=== PATIENT | male | born 1975 | race Caucasian/White ===

== ENCOUNTER 2020-02-28 10:25 | Inpatient (IN) ==
[2020-02-28] MEDS ORDERED: Dexamethasone IV 4 MG/ML VIAL 1 ml VIAL IV SLOW PU ONE (10:42)
[2020-02-28] MEDS ORDERED: Albuterol HFA INHALER 8 gm MDI INH ONE (10:44)
[2020-02-28] MEDS ORDERED: Magnesium Sulfate IV 1GM/100ML 1 GM/100 ML BAG IV ONE (10:44)
[2020-02-28] MEDS ORDERED: NS 0.9% 1000 ml BAG 1,000 ML IV ONE (11:30)
[2020-02-28 11:48] LABS: Hematocrit 38 % (42-52); Hemoglobin 13.2 g/dL (14.0-18.0); Mean Corpuscular HGB Conc 34 g/dL (31-36); Mean Corpuscular Hemoglobin 33 pg (27-31); Mean Corpuscular Volume 96 fL (80-94); Mean Platelet Volume 8.8 fL (7.4-10.4); Platelet Count 57 10^3/uL (150-450); Red Blood Count 3.99 10^6 /uL (4.18-5.48); Red Cell Distribution Width 15 % (10-15); White Blood Count 4.4 10^3/uL (3.5-10.8)
[2020-02-28 11:51] LABS: Activated Partial Thrombo Time 36.7 seconds (26.0-38.0); INR 1.6 (0.82-1.09)
[2020-02-28 11:59] LABS: Albumin 3.3 g/dL (3.2-5.2); Albumin/Globulin Ratio 1.1 (1-3); BUN/Creatinine Ratio 11.8 (8-20); C Reactive Protein 23.56 mg/L (<8.01); Calcium 8.4 mg/dL (8.6-10.3); EGFR African American 106.3 (>60); EGFR Non-African American 87.9 (>60); Potassium 3.7 mmol/L (3.5-5.0); Total Bilirubin 2.7 mg/dL (0.2-1.0); Total Protein 6.3 g/dL (6.4-8.9); Troponin I 0.01 ng/mL (<0.03)
[2020-02-28 12:02] LABS: Influenza A Molecular Negative (Negative); Influenza B Molecular Negative (Negative)
[2020-02-28 12:16] LABS: ABS Lymphocytes 1.2 10^3/ul (1.0-4.8); ABS Monocytes 1.3 10^3/ul (0-0.8); ABS Neutrophils 1.9 10^3/ul (1.5-7.7); Eosinophil % 0.5 %; Lymphocyte % 27.2 %
[2020-02-28 12:17] LABS: Ferritin 175.1 ng/mL (24-336)
[2020-02-28] MEDS ORDERED: NS 0.9% 1000 ml BAG 1,000 ML IV SCH (16:15)
[2020-02-28] MEDS ORDERED: Enoxaparin 40 MG/0.4 ML SYR SUBCUT SCH (17:00)
[2020-02-28] MEDS: Mometasone/Formoter 200/5 MDI INH SCH (20:02)
[2020-02-28] MEDS: Potassium Chlor 10 meq TAB PO SCH (20:33)
[2020-02-28] MEDS: Lactulose 30 ml UDC PO SCH (20:33)
[2020-02-29 06:37] LABS: Albumin 3.2 g/dL (3.2-5.2); Calcium 8.5 mg/dL (8.6-10.3); Total Bilirubin 1.5 mg/dL (0.2-1.0)
[2020-02-29 06:43] LABS: BUN/Creatinine Ratio 18.4 (8-20); EGFR African American 134.2 (>60); EGFR Non-African American 110.9 (>60); Globulin 3.1 g/dL (2-4); Total Protein 6.3 g/dL (6.4-8.9)
[2020-02-29] MEDS: Mometasone/Formoter 200/5 MDI INH SCH ×2 (08:43→22:00)
[2020-02-29] MEDS: SPIRIVA Respimat (tiotropium) 2.5 mcg/inh Inhaler INH SCH (08:43)
[2020-02-29 08:48] LABS: ABS Lymphocytes 0.5 10^3/ul (1.0-4.8); ABS Monocytes 0.5 10^3/ul (0-0.8); ABS Neutrophils 3.9 10^3/ul (1.5-7.7); Hematocrit 39 % (42-52); Hemoglobin 13.7 g/dL (14.0-18.0); Lymphocyte % 10.8 %; Mean Corpuscular HGB Conc 35 g/dL (31-36); Mean Corpuscular Hemoglobin 34 pg (27-31); Mean Corpuscular Volume 96 fL (80-94); Mean Platelet Volume 8.9 fL (7.4-10.4); Nucleated Red Blood Cells % 0.2; Platelet Count 54 10^3/uL (150-450); Red Blood Count 4.07 10^6 /uL (4.18-5.48); Red Cell Distribution Width 15 % (10-15)
[2020-02-29 08:54] LABS: Magnesium 1.9 mg/dL (1.9-2.7)
[2020-02-29] MEDS: Cholecalciferol (VIT D3) 1,000 unit TAB PO SCH (09:05)
[2020-02-29] MEDS: LEVOMEFOLATE CALCIUM 7.5 MG PO SCH (09:06)
[2020-02-29] MEDS: Lactulose 30 ml UDC PO SCH ×2 (09:06→20:35)
[2020-02-29] MEDS: Potassium Chlor 10 meq TAB PO SCH ×2 (09:06→20:36)
[2020-02-29 11:26] LABS: HIV 4th Generation Nonreactive (Nonreactive)
[2020-02-29 18:16] LABS: Activated Partial Thrombo Time 23.4 seconds (26.0-38.0); INR 1.55 (0.82-1.09)
[2020-02-29 18:36] LABS: EGFR African American 111.8 (>60); EGFR Non-African American 92.4 (>60)
[2020-02-29] MEDS: Heparin 5000 UNITS/ML 1 mL VIAL SUBCUT SCH (20:37)
[2020-02-29 21:36] LABS: Hematocrit 46 % (42-52); Hemoglobin 16.1 g/dL (14.0-18.0); Mean Corpuscular HGB Conc 35 g/dL (31-36); Mean Corpuscular Hemoglobin 34 pg (27-31); Mean Corpuscular Volume 97 fL (80-94); Red Blood Count 4.74 10^6 /uL (4.18-5.48); Red Cell Distribution Width 15 % (10-15); White Blood Count 14.1 10^3/uL (3.5-10.8)
[2020-02-29] MEDS: CMCS: Ketorolac 10 mg TAB (NF) PO PRN (22:01)
[2020-02-29] MEDS: guaiFENesin 100 mg/5 ml LIQ unit dose cup PO PRN (22:01)
[2020-02-29 22:04] LABS: ABS Basophils 0.1 10^3/ul (0-0.2); ABS Eosinophils 0.2 10^3/ul (0-0.6); ABS Lymphocytes 1.2 10^3/ul (1.0-4.8); ABS Monocytes 1.1 10^3/ul (0-0.8); ABS Neutrophils 11.6 10^3/ul (1.5-7.7); ABS Nucleated RBC 0.1 10^3/ul; Eosinophil % 1.2 %; Lymphocyte % 8.5 %; Mean Platelet Volume 10.9 fL (7.4-10.4); Nucleated Red Blood Cells % 0.6
[2020-03-01] MEDS: Heparin 5000 UNITS/ML 1 mL VIAL SUBCUT SCH ×3 (05:56→21:34)
[2020-03-01 06:56] LABS: Hematocrit 38 % (42-52); Hemoglobin 13.2 g/dL (14.0-18.0); Mean Corpuscular HGB Conc 35 g/dL (31-36); Mean Corpuscular Hemoglobin 33 pg (27-31); Mean Corpuscular Volume 96 fL (80-94); Red Cell Distribution Width 15 % (10-15); White Blood Count 7.6 10^3/uL (3.5-10.8)
[2020-03-01 07:06] LABS: BUN/Creatinine Ratio 19.4 (8-20); Calcium 8.4 mg/dL (8.6-10.3); EGFR African American 106.3 (>60); EGFR Non-African American 87.9 (>60); Magnesium 1.9 mg/dL (1.9-2.7); Potassium 3.8 mmol/L (3.5-5.0)
[2020-03-01] MEDS: SPIRIVA Respimat (tiotropium) 2.5 mcg/inh Inhaler INH SCH (07:32)
[2020-03-01] MEDS: Mometasone/Formoter 200/5 MDI INH SCH ×2 (07:32→19:50)
[2020-03-01 07:37] LABS: ABS Lymphocytes 0.8 10^3/ul (1.0-4.8); ABS Monocytes 0.6 10^3/ul (0-0.8); ABS Neutrophils 6.3 10^3/ul (1.5-7.7); Lymphocyte % 10.1 %; Platelet Count 58 10^3/uL (150-450)
[2020-03-01] MEDS: Cholecalciferol (VIT D3) 1,000 unit TAB PO SCH (08:16)
[2020-03-01] MEDS: Potassium Chlor 10 meq TAB PO SCH ×2 (08:16→21:33)
[2020-03-01] MEDS: Lactulose 30 ml UDC PO SCH ×2 (08:17→21:32)
[2020-03-01] MEDS: LEVOMEFOLATE CALCIUM 7.5 MG PO SCH (09:03)
[2020-03-02] MEDS: guaiFENesin 100 mg/5 ml LIQ unit dose cup PO PRN ×2 (03:43→10:48)
[2020-03-02] MEDS: Heparin 5000 UNITS/ML 1 mL VIAL SUBCUT SCH ×3 (06:21→21:47)
[2020-03-02] MEDS: Mometasone/Formoter 200/5 MDI INH SCH ×2 (08:08→20:29)
[2020-03-02] MEDS: SPIRIVA Respimat (tiotropium) 2.5 mcg/inh Inhaler INH SCH (08:08)
[2020-03-02 08:21] LABS: ABS Lymphocytes 0.8 10^3/ul (1.0-4.8); ABS Neutrophils 4.9 10^3/ul (1.5-7.7); Hematocrit 39 % (42-52); Hemoglobin 13.8 g/dL (14.0-18.0); Lymphocyte % 11.8 %; Mean Corpuscular HGB Conc 36 g/dL (31-36); Mean Corpuscular Hemoglobin 34 pg (27-31); Mean Corpuscular Volume 95 fL (80-94); Mean Platelet Volume 8.6 fL (7.4-10.4); Nucleated Red Blood Cells % 0.1; Platelet Count 61 10^3/uL (150-450); Red Blood Count 4.09 10^6 /uL (4.18-5.48); Red Cell Distribution Width 15 % (10-15); White Blood Count 6.8 10^3/uL (3.5-10.8)
[2020-03-02 08:50] LABS: BUN/Creatinine Ratio 23.6 (8-20); Calcium 8.4 mg/dL (8.6-10.3); EGFR African American 142.8 (>60); EGFR Non-African American 118.1 (>60); Magnesium 2.1 mg/dL (1.9-2.7); Potassium 3.9 mmol/L (3.5-5.0)
[2020-03-02] MEDS: LEVOMEFOLATE CALCIUM 7.5 MG PO SCH (10:02)
[2020-03-02] MEDS: Cholecalciferol (VIT D3) 1,000 unit TAB PO SCH (10:03)
[2020-03-02] MEDS: Lactulose 30 ml UDC PO SCH ×2 (10:04→21:46)
[2020-03-02] MEDS: Potassium Chlor 10 meq TAB PO SCH ×2 (10:05→21:46)
[2020-03-02] MEDS: CMCS: Ketorolac 10 mg TAB (NF) PO PRN ×2 (11:38→23:07)
[2020-03-03] MEDS: Heparin 5000 UNITS/ML 1 mL VIAL SUBCUT SCH ×3 (06:38→22:09)
[2020-03-03 07:32] LABS: ABS Lymphocytes 0.6 10^3/ul (1.0-4.8); ABS Monocytes 0.8 10^3/ul (0-0.8); ABS Neutrophils 4.8 10^3/ul (1.5-7.7); Hematocrit 39 % (42-52); Hemoglobin 13.6 g/dL (14.0-18.0); Lymphocyte % 9.8 %; Mean Corpuscular HGB Conc 35 g/dL (31-36); Mean Corpuscular Hemoglobin 34 pg (27-31); Mean Corpuscular Volume 97 fL (80-94); Mean Platelet Volume 8.8 fL (7.4-10.4); Platelet Count 51 10^3/uL (150-450); Red Blood Count 4.03 10^6 /uL (4.18-5.48); Red Cell Distribution Width 15 % (10-15); White Blood Count 6.2 10^3/uL (3.5-10.8)
[2020-03-03] MEDS: Cholecalciferol (VIT D3) 1,000 unit TAB PO SCH (08:59)
[2020-03-03] MEDS: Potassium Chlor 10 meq TAB PO SCH ×2 (08:59→21:39)
[2020-03-03] MEDS: Lactulose 30 ml UDC PO SCH ×2 (09:00→21:41)
[2020-03-03] MEDS: LEVOMEFOLATE CALCIUM 7.5 MG PO SCH (09:02)
[2020-03-03] MEDS: SPIRIVA Respimat (tiotropium) 2.5 mcg/inh Inhaler INH SCH (09:55)
[2020-03-03] MEDS: Mometasone/Formoter 200/5 MDI INH SCH ×2 (09:55→20:44)
[2020-03-03] MEDS: Albuterol HFA INHALER 8 gm MDI INH PRN (09:55)
[2020-03-04] MEDS: Heparin 5000 UNITS/ML 1 mL VIAL SUBCUT SCH (06:03)
[2020-03-04 06:49] LABS: ABS Lymphocytes 0.6 10^3/ul (1.0-4.8); ABS Monocytes 0.7 10^3/ul (0-0.8); ABS Neutrophils 5.3 10^3/ul (1.5-7.7); Hematocrit 38 % (42-52); Hemoglobin 13.3 g/dL (14.0-18.0); Lymphocyte % 9.1 %; Mean Corpuscular HGB Conc 35 g/dL (31-36); Mean Corpuscular Hemoglobin 33 pg (27-31); Mean Corpuscular Volume 95 fL (80-94); Mean Platelet Volume 8.7 fL (7.4-10.4); Platelet Count 51 10^3/uL (150-450); Red Blood Count 3.99 10^6 /uL (4.18-5.48); Red Cell Distribution Width 15 % (10-15); White Blood Count 6.6 10^3/uL (3.5-10.8)
[2020-03-04] MEDS: Potassium Chlor 10 meq TAB PO SCH ×2 (10:32→19:55)
[2020-03-04] MEDS: LEVOMEFOLATE CALCIUM 7.5 MG PO SCH (10:33)
[2020-03-04] MEDS: Cholecalciferol (VIT D3) 1,000 unit TAB PO SCH (10:34)
[2020-03-04] MEDS: Lactulose 30 ml UDC PO SCH ×2 (10:35→19:53)
[2020-03-04] MEDS: Mometasone/Formoter 200/5 MDI INH SCH ×2 (11:11→19:09)
[2020-03-04] MEDS: SPIRIVA Respimat (tiotropium) 2.5 mcg/inh Inhaler INH SCH (11:12)
[2020-03-05 05:52] LABS: ABS Lymphocytes 0.5 10^3/ul (1.0-4.8); ABS Monocytes 0.6 10^3/ul (0-0.8); ABS Neutrophils 4.9 10^3/ul (1.5-7.7); Hematocrit 38 % (42-52); Hemoglobin 13.2 g/dL (14.0-18.0); Lymphocyte % 8.8 %; Mean Corpuscular HGB Conc 35 g/dL (31-36); Mean Corpuscular Hemoglobin 34 pg (27-31); Mean Corpuscular Volume 95 fL (80-94); Mean Platelet Volume 8.8 fL (7.4-10.4); Platelet Count 51 10^3/uL (150-450); Red Blood Count 3.94 10^6 /uL (4.18-5.48); Red Cell Distribution Width 15 % (10-15)
[2020-03-05] MEDS: SPIRIVA Respimat (tiotropium) 2.5 mcg/inh Inhaler INH SCH (08:06)
[2020-03-05] MEDS: Mometasone/Formoter 200/5 MDI INH SCH (08:06)
[2020-03-05] MEDS: Lactulose 30 ml UDC PO SCH ×2 (10:10→19:50)
[2020-03-05] MEDS: Cholecalciferol (VIT D3) 1,000 unit TAB PO SCH (10:11)
[2020-03-05] MEDS: Potassium Chlor 10 meq TAB PO SCH ×2 (10:13→19:51)
[2020-03-05] MEDS: LEVOMEFOLATE CALCIUM 7.5 MG PO SCH (10:27)
[2020-03-06] MEDS: Mometasone/Formoter 200/5 MDI INH SCH ×3 (01:09→21:04)
[2020-03-06] MEDS: SPIRIVA Respimat (tiotropium) 2.5 mcg/inh Inhaler INH SCH (07:27)
[2020-03-06] MEDS: Lactulose 30 ml UDC PO SCH ×2 (09:51→22:10)
[2020-03-06] MEDS: Potassium Chlor 10 meq TAB PO SCH ×2 (09:51→22:11)
[2020-03-06] MEDS: Cholecalciferol (VIT D3) 1,000 unit TAB PO SCH (09:52)
[2020-03-06] MEDS: LEVOMEFOLATE CALCIUM 7.5 MG PO SCH (09:53)
[2020-03-06 16:07] LABS: Urine Appearance Clear; Urine Bilirubin Negative (Negative); Urine Blood Negative (Negative); Urine Color Yellow; Urine Glucose Negative (Negative); Urine Ketones Negative (Negative); Urine Nitrite Negative (Negative); Urine Protein Negative (Negative); Urine Specific Gravity 1.014 (1.010-1.030); Urine Urobilinogen Positive (Negative)
[2020-03-06 16:11] LABS: Urine Bacteria Absent (Absent); Urine Red Blood Cell Trace(0-2/hpf) (Absent); Urine White Blood Cell 1+(6-10/hpf) (Absent)
[2020-03-07] MEDS: Mometasone/Formoter 200/5 MDI INH SCH ×2 (07:14→19:38)
[2020-03-07] MEDS: SPIRIVA Respimat (tiotropium) 2.5 mcg/inh Inhaler INH SCH (07:14)
[2020-03-07] MEDS: Lactulose 30 ml UDC PO SCH ×2 (08:46→20:37)
[2020-03-07] MEDS: Cholecalciferol (VIT D3) 1,000 unit TAB PO SCH (08:47)
[2020-03-07] MEDS: LEVOMEFOLATE CALCIUM 7.5 MG PO SCH (08:48)
[2020-03-07] MEDS: Potassium Chlor 10 meq TAB PO SCH ×2 (08:48→20:38)
[2020-03-07] MEDS: Albuterol HFA INHALER 8 gm MDI INH PRN (19:38)
[2020-03-08] MEDS: SPIRIVA Respimat (tiotropium) 2.5 mcg/inh Inhaler INH SCH (07:41)
[2020-03-08] MEDS: Mometasone/Formoter 200/5 MDI INH SCH (07:41)
[2020-03-08 08:34] LABS: ABS Lymphocytes 0.5 10^3/ul (1.0-4.8); ABS Monocytes 0.8 10^3/ul (0-0.8); ABS Neutrophils 9.4 10^3/ul (1.5-7.7); Hematocrit 39 % (42-52); Hemoglobin 13.9 g/dL (14.0-18.0); Lymphocyte % 4.9 %; Mean Corpuscular HGB Conc 36 g/dL (31-36); Mean Corpuscular Hemoglobin 34 pg (27-31); Mean Corpuscular Volume 95 fL (80-94); Mean Platelet Volume 8.8 fL (7.4-10.4); Platelet Count 56 10^3/uL (150-450); Red Blood Count 4.13 10^6 /uL (4.18-5.48); Red Cell Distribution Width 14 % (10-15); White Blood Count 10.8 10^3/uL (3.5-10.8)
[2020-03-08] MEDS: Cholecalciferol (VIT D3) 1,000 unit TAB PO SCH (10:07)
[2020-03-08] MEDS: Lactulose 30 ml UDC PO SCH ×2 (10:07→20:09)
[2020-03-08] MEDS: Potassium Chlor 10 meq TAB PO SCH ×2 (10:08→20:09)
[2020-03-08] MEDS: LEVOMEFOLATE CALCIUM 7.5 MG PO SCH (10:09)
[2020-03-09] MEDS: Mometasone/Formoter 200/5 MDI INH SCH ×3 (01:21→21:15)
[2020-03-09] MEDS: SPIRIVA Respimat (tiotropium) 2.5 mcg/inh Inhaler INH SCH (08:13)
[2020-03-09 08:41] LABS: Hematocrit 39 % (42-52); Hemoglobin 13.6 g/dL (14.0-18.0); Mean Corpuscular HGB Conc 35 g/dL (31-36); Mean Corpuscular Hemoglobin 33 pg (27-31); Mean Corpuscular Volume 95 fL (80-94); Mean Platelet Volume 8.8 fL (7.4-10.4); Platelet Count 60 10^3/uL (150-450); Red Blood Count 4.08 10^6 /uL (4.18-5.48); Red Cell Distribution Width 15 % (10-15); White Blood Count 10.2 10^3/uL (3.5-10.8)
[2020-03-09 08:43] LABS: Anion Gap 6 mmol/L (2-11); BUN/Creatinine Ratio 22.1 (8-20); Blood Urea Nitrogen 15 mg/dL (6-24); C Reactive Protein 47.64 mg/L (<8.01); CO2 Carbon Dioxide 27 mmol/L (22-32); Calcium 8.3 mg/dL (8.6-10.3); Chloride 98 mmol/L (101-111); EGFR African American 152.6 (>60); EGFR Non-African American 126.1 (>60); Glucose 96 mg/dL (70-100); Potassium 3.8 mmol/L (3.5-5.0); Sodium 131 mmol/L (135-145)
[2020-03-09] MEDS: Lactulose 30 ml UDC PO SCH ×2 (09:30→20:31)
[2020-03-09] MEDS: Cholecalciferol (VIT D3) 1,000 unit TAB PO SCH (09:32)
[2020-03-09] MEDS: Potassium Chlor 10 meq TAB PO SCH ×2 (09:32→20:31)
[2020-03-09] MEDS: LEVOMEFOLATE CALCIUM 7.5 MG PO SCH (09:33)
[2020-03-09] MEDS: cefTRIAXone 1 gm/50 mL NS BAG 1 GM/50 ML BAG IVPB SCH (14:06)
[2020-03-09] MEDS: Azithromycin 500 mg/250 ml NS 500 MG/250 ML BAG IVPB SCH (14:06)
[2020-03-09] MEDS ORDERED: Lorazepam PYXIS KEY PRN (14:49)
[2020-03-09] MEDS: LORazepam 2 mg VIAL 1 ml IV PUSH PRN (15:07)
[2020-03-09] MEDS ORDERED: Furosemide 40 mg/4 ml IV VIAL IV SLOW PU ONE (19:53)
[2020-03-09] MEDS ORDERED: Furosemide 40 mg/4 ml IV VIAL ONE (20:31)
[2020-03-09] MEDS: Albuterol HFA INHALER 8 gm MDI INH PRN (21:15)
[2020-03-10 04:38] LABS: Hematocrit 40 % (42-52); Hemoglobin 14.3 g/dL (14.0-18.0); Mean Corpuscular HGB Conc 35 g/dL (31-36); Mean Corpuscular Hemoglobin 33 pg (27-31); Mean Corpuscular Volume 94 fL (80-94); Mean Platelet Volume 8.2 fL (7.4-10.4); Platelet Count 71 10^3/uL (150-450); Red Cell Distribution Width 15 % (10-15); White Blood Count 10.3 10^3/uL (3.5-10.8)
[2020-03-10 04:51] LABS: Albumin 2.8 g/dL (3.2-5.2); Albumin/Globulin Ratio 0.9 (1-3); Calcium 8.3 mg/dL (8.6-10.3); EGFR African American 142.8 (>60); EGFR Non-African American 118.1 (>60); Globulin 3.2 g/dL (2-4); Magnesium 2.1 mg/dL (1.9-2.7); Phosphorus 3.3 mg/dL (2.5-5.0); Potassium 3.5 mmol/L (3.5-5.0); Total Bilirubin 1.6 mg/dL (0.2-1.0)
[2020-03-10] MEDS: SPIRIVA Respimat (tiotropium) 2.5 mcg/inh Inhaler INH SCH (07:28)
[2020-03-10] MEDS: Mometasone/Formoter 200/5 MDI INH SCH ×2 (07:28→20:49)
[2020-03-10] MEDS: Albuterol HFA INHALER 8 gm MDI INH PRN (07:29)
[2020-03-10] MEDS: Cholecalciferol (VIT D3) 1,000 unit TAB PO SCH (07:47)
[2020-03-10] MEDS: Lactulose 30 ml UDC PO SCH ×2 (07:47→21:27)
[2020-03-10] MEDS: Potassium Chlor 10 meq TAB PO SCH ×2 (07:48→21:27)
[2020-03-10] MEDS: LEVOMEFOLATE CALCIUM 7.5 MG PO SCH (07:51)
[2020-03-10] MEDS: LORazepam 2 mg VIAL 1 ml IV PUSH PRN (12:27)
[2020-03-10] MEDS: cefTRIAXone 1 gm/50 mL NS BAG 1 GM/50 ML BAG IVPB SCH (12:36)
[2020-03-10] MEDS: Azithromycin 500 mg/250 ml NS 500 MG/250 ML BAG IVPB SCH (13:18)
[2020-03-11 05:19] LABS: Hemoglobin 13.3 g/dL (14.0-18.0); Red Blood Count 4.02 10^6 /uL (4.18-5.48); White Blood Count 10.2 10^3/uL (3.5-10.8)
[2020-03-11 05:20] LABS: Hematocrit 38 % (42-52); Mean Corpuscular HGB Conc 35 g/dL (31-36); Mean Corpuscular Hemoglobin 33 pg (27-31); Mean Corpuscular Volume 95 fL (80-94); Mean Platelet Volume 8.7 fL (7.4-10.4); Platelet Count 72 10^3/uL (150-450); Red Cell Distribution Width 15 % (10-15)
[2020-03-11] MEDS: Lactulose 30 ml UDC PO SCH ×2 (07:45→21:29)
[2020-03-11] MEDS: Potassium Chlor 10 meq TAB PO SCH ×2 (07:45→21:29)
[2020-03-11] MEDS: Cholecalciferol (VIT D3) 1,000 unit TAB PO SCH (07:46)
[2020-03-11] MEDS: LEVOMEFOLATE CALCIUM 7.5 MG PO SCH (07:54)
[2020-03-11] MEDS: Albuterol HFA INHALER 8 gm MDI INH PRN ×2 (08:08→18:57)
[2020-03-11] MEDS: Mometasone/Formoter 200/5 MDI INH SCH ×3 (08:08→21:30)
[2020-03-11] MEDS: SPIRIVA Respimat (tiotropium) 2.5 mcg/inh Inhaler INH SCH (08:08)
[2020-03-11 09:29] LABS: BUN/Creatinine Ratio 24.2 (8-20); Calcium 8.4 mg/dL (8.6-10.3); EGFR African American 157.9 (>60); EGFR Non-African American 130.5 (>60); Magnesium 2.1 mg/dL (1.9-2.7); Phosphorus 3.4 mg/dL (2.5-5.0); Potassium 3.5 mmol/L (3.5-5.0)
[2020-03-11] MEDS: cefTRIAXone 1 gm/50 mL NS BAG 1 GM/50 ML BAG IVPB SCH (11:32)
[2020-03-11] MEDS: Azithromycin 500 mg/250 ml NS 500 MG/250 ML BAG IVPB SCH (12:15)
[2020-03-11] MEDS: LORazepam 2 mg VIAL 1 ml IV PUSH PRN (21:29)
[2020-03-12] MEDS: Potassium Chlor 10 meq TAB PO SCH ×2 (08:43→20:23)
[2020-03-12] MEDS: Lactulose 30 ml UDC PO SCH ×2 (08:43→20:23)
[2020-03-12] MEDS: LEVOMEFOLATE CALCIUM 7.5 MG PO SCH (08:43)
[2020-03-12] MEDS: SPIRIVA Respimat (tiotropium) 2.5 mcg/inh Inhaler INH SCH (09:29)
[2020-03-12] MEDS: Mometasone/Formoter 200/5 MDI INH SCH ×2 (09:30→20:07)
[2020-03-12] MEDS ORDERED: Furosemide 40 mg/4 ml IV VIAL IV SLOW PU ONE (10:09)
[2020-03-12] MEDS: LORazepam 2 mg VIAL 1 ml IV PUSH PRN ×2 (12:03→20:26)
[2020-03-12] MEDS: Azithromycin 500 mg/250 ml NS 500 MG/250 ML BAG IVPB SCH (12:15)
[2020-03-13 05:35] LABS: Hematocrit 36 % (42-52); Hemoglobin 12.7 g/dL (14.0-18.0); Mean Corpuscular HGB Conc 35 g/dL (31-36); Mean Corpuscular Hemoglobin 33 pg (27-31); Mean Corpuscular Volume 94 fL (80-94); Mean Platelet Volume 7.8 fL (7.4-10.4); Platelet Count 64 10^3/uL (150-450); Red Blood Count 3.82 10^6 /uL (4.18-5.48); Red Cell Distribution Width 15 % (10-15); White Blood Count 7.1 10^3/uL (3.5-10.8)
[2020-03-13 05:42] LABS: CO2 Carbon Dioxide 28 mmol/L (22-32); Calcium 8.5 mg/dL (8.6-10.3); Chloride 97 mmol/L (101-111); Sodium 129 mmol/L (135-145)
[2020-03-13 05:44] LABS: Anion Gap 4 mmol/L (2-11)
[2020-03-13 05:48] LABS: Blood Urea Nitrogen 16 mg/dL (6-24); EGFR African American 163.6 (>60); EGFR Non-African American 135.2 (>60); Glucose 111 mg/dL (70-100)
[2020-03-13] MEDS: Mometasone/Formoter 200/5 MDI INH SCH ×2 (07:28→19:58)
[2020-03-13] MEDS: SPIRIVA Respimat (tiotropium) 2.5 mcg/inh Inhaler INH SCH (07:28)
[2020-03-13] MEDS: Potassium Chlor 10 meq TAB PO SCH ×2 (09:39→20:07)
[2020-03-13] MEDS: Lactulose 30 ml UDC PO SCH ×2 (09:40→20:07)
[2020-03-13] MEDS: LEVOMEFOLATE CALCIUM 7.5 MG PO SCH (10:05)
[2020-03-13] MEDS: Albuterol HFA INHALER 8 gm MDI INH PRN ×2 (11:33→19:59)
[2020-03-13] MEDS: Azithromycin 500 mg/250 ml NS 500 MG/250 ML BAG IVPB SCH (12:12)
[2020-03-13] MEDS: LORazepam 2 mg VIAL 1 ml IV PUSH PRN ×2 (14:30→21:11)
[2020-03-13] MEDS ORDERED: Furosemide 20 mg/2 ml IV VIAL IV SLOW PU ONE (17:30)
[2020-03-14 06:20] LABS: Hematocrit 39 % (42-52); Hemoglobin 13.2 g/dL (14.0-18.0); Mean Corpuscular HGB Conc 34 g/dL (31-36); Mean Corpuscular Hemoglobin 33 pg (27-31); Mean Corpuscular Volume 96 fL (80-94); Red Blood Count 4.01 10^6 /uL (4.18-5.48); Red Cell Distribution Width 15 % (10-15)
[2020-03-14 06:38] LABS: BUN/Creatinine Ratio 22.8 (8-20); Calcium 8.9 mg/dL (8.6-10.3); EGFR African American 128.3 (>60); EGFR Non-African American 106.1 (>60); Potassium 3.5 mmol/L (3.5-5.0)
[2020-03-14 06:58] LABS: ABS Eosinophils 0.1 10^3/ul (0-0.6); ABS Lymphocytes 1.1 10^3/ul (1.0-4.8); ABS Monocytes 0.7 10^3/ul (0-0.8); Eosinophil % 1.2 %; Lymphocyte % 15.4 %; Mean Platelet Volume 8.1 fL (7.4-10.4); Nucleated Red Blood Cells % 0.1; Platelet Count 64 10^3/uL (150-450)
[2020-03-14] MEDS: Albuterol HFA INHALER 8 gm MDI INH PRN (07:39)
[2020-03-14] MEDS: Mometasone/Formoter 200/5 MDI INH SCH ×2 (07:39→19:45)
[2020-03-14] MEDS: SPIRIVA Respimat (tiotropium) 2.5 mcg/inh Inhaler INH SCH (07:40)
[2020-03-14] MEDS: Lactulose 30 ml UDC PO SCH ×2 (09:04→21:15)
[2020-03-14] MEDS: Potassium Chlor 10 meq TAB PO SCH ×2 (09:08→21:16)
[2020-03-14] MEDS: LEVOMEFOLATE CALCIUM 7.5 MG PO SCH (09:46)
[2020-03-14] MEDS: LORazepam 2 mg VIAL 1 ml IV PUSH PRN (21:17)
[2020-03-15] MEDS: Potassium Chlor 10 meq TAB PO SCH ×2 (10:01→21:05)
[2020-03-15] MEDS: LEVOMEFOLATE CALCIUM 7.5 MG PO SCH (10:02)
[2020-03-15] MEDS: Lactulose 30 ml UDC PO SCH ×2 (10:02→21:06)
[2020-03-15] MEDS: Albuterol HFA INHALER 8 gm MDI INH PRN (10:03)
[2020-03-15] MEDS: SPIRIVA Respimat (tiotropium) 2.5 mcg/inh Inhaler INH SCH (10:03)
[2020-03-15] MEDS: Mometasone/Formoter 200/5 MDI INH SCH ×2 (10:03→21:40)
[2020-03-15] MEDS: LORazepam 2 mg VIAL 1 ml IV PUSH PRN (13:07)
[2020-03-15 13:32] LABS: ABS Eosinophils 0.1 10^3/ul (0-0.6); ABS Lymphocytes 1.3 10^3/ul (1.0-4.8); ABS Monocytes 0.9 10^3/ul (0-0.8); ABS Neutrophils 5.5 10^3/ul (1.5-7.7); Eosinophil % 1.4 %; Hematocrit 38 % (42-52); Hemoglobin 13.5 g/dL (14.0-18.0); Mean Corpuscular HGB Conc 35 g/dL (31-36); Mean Corpuscular Hemoglobin 33 pg (27-31); Mean Corpuscular Volume 95 fL (80-94); Mean Platelet Volume 7.7 fL (7.4-10.4); Platelet Count 76 10^3/uL (150-450); Red Blood Count 4.04 10^6 /uL (4.18-5.48); Red Cell Distribution Width 15 % (10-15); White Blood Count 7.9 10^3/uL (3.5-10.8)
[2020-03-15 13:51] LABS: Calcium 8.7 mg/dL (8.6-10.3); EGFR African American 117.9 (>60); EGFR Non-African American 97.5 (>60); Potassium 3.7 mmol/L (3.5-5.0)
[2020-03-16] MEDS: Potassium Chlor 10 meq TAB PO SCH ×2 (07:54→21:07)
[2020-03-16] MEDS: Lactulose 30 ml UDC PO SCH ×2 (07:55→21:06)
[2020-03-16] MEDS: Albuterol HFA INHALER 8 gm MDI INH PRN (08:03)
[2020-03-16] MEDS: Mometasone/Formoter 200/5 MDI INH SCH ×2 (08:03→20:11)
[2020-03-16] MEDS: SPIRIVA Respimat (tiotropium) 2.5 mcg/inh Inhaler INH SCH (08:04)
[2020-03-16] MEDS: LEVOMEFOLATE CALCIUM 7.5 MG PO SCH (13:47)
[2020-03-16] MEDS: Dextran 70/Hypromellose Tears Eye Drops 15 ml BTL (for Artificials Tears) BOTH EYES PRN (21:08)
[2020-03-17] MEDS: Mometasone/Formoter 200/5 MDI INH SCH ×2 (07:43→21:48)
[2020-03-17] MEDS: SPIRIVA Respimat (tiotropium) 2.5 mcg/inh Inhaler INH SCH (07:43)
[2020-03-17] MEDS: Dextran 70/Hypromellose Tears Eye Drops 15 ml BTL (for Artificials Tears) BOTH EYES PRN (07:56)
[2020-03-17] MEDS: LEVOMEFOLATE CALCIUM 7.5 MG PO SCH (07:59)
[2020-03-17] MEDS: Potassium Chlor 10 meq TAB PO SCH ×2 (08:00→19:42)
[2020-03-17] MEDS: Lactulose 30 ml UDC PO SCH ×2 (08:02→19:42)
[2020-03-17] MEDS: Albuterol HFA INHALER 8 gm MDI INH PRN (16:14)
[2020-03-17] MEDS ORDERED: Iodixanol (CONTRAST) 320 MG/ML 100 ML SDV IV ONE (16:39)
[2020-03-17] MEDS ORDERED: Albuterol/Ipratropium NEB.SOL (2.5/0.5 MG) 3 ML NEB.SOLN INH PRN (16:52)
[2020-03-17] MEDS: methylPREDNISolone SOD 40 mg/ml 1 ml VIAL IV SCH (16:54)
[2020-03-17] MEDS ORDERED: methylPREDNISolone 125 mg 2 ML VIAL IM SCH (17:00)
[2020-03-17] MEDS ORDERED: Enoxaparin 40 MG/0.4 ML SYR SUBCUT SCH (18:00)
[2020-03-17] MEDS ORDERED: Albuterol/Ipratropium NEB.SOL (2.5/0.5 MG) 3 ML NEB.SOLN INH SCH (19:00)
[2020-03-17] MEDS ORDERED: Albuterol HFA INHALER 8 gm MDI INH SCH (19:00)
[2020-03-17] MEDS ORDERED: Albuterol/Ipratropium RESP(NF) MDI (Combivent Respimat) INH SCH (19:00)
[2020-03-18] MEDS: methylPREDNISolone SOD 40 mg/ml 1 ml VIAL IV SCH ×2 (04:56→18:08)
[2020-03-18] MEDS: Mometasone/Formoter 200/5 MDI INH SCH ×2 (07:25→19:41)
[2020-03-18] MEDS: SPIRIVA Respimat (tiotropium) 2.5 mcg/inh Inhaler INH SCH (07:26)
[2020-03-18 07:56] LABS: Hematocrit 36 % (42-52); Hemoglobin 12.9 g/dL (14.0-18.0); Mean Corpuscular HGB Conc 36 g/dL (31-36); Mean Corpuscular Hemoglobin 34 pg (27-31); Mean Corpuscular Volume 96 fL (80-94); Platelet Count 51 10^3/uL (150-450); Red Blood Count 3.78 10^6 /uL (4.18-5.48); Red Cell Distribution Width 15 % (10-15)
[2020-03-18 08:02] LABS: BUN/Creatinine Ratio 22.4 (8-20); Calcium 8.7 mg/dL (8.6-10.3); EGFR African American 155.2 (>60); EGFR Non-African American 128.3 (>60); Potassium 3.7 mmol/L (3.5-5.0)
[2020-03-18] MEDS: Potassium Chlor 10 meq TAB PO SCH ×2 (09:58→19:50)
[2020-03-18] MEDS: Dextran 70/Hypromellose Tears Eye Drops 15 ml BTL (for Artificials Tears) BOTH EYES PRN ×2 (10:17→15:44)
[2020-03-18] MEDS: LEVOMEFOLATE CALCIUM 7.5 MG PO SCH (13:04)
[2020-03-18] MEDS: Lactulose 30 ml UDC PO SCH ×2 (13:35→19:49)
[2020-03-18] MEDS: Polyethylene Glycol 3350 17 GM PACKET PO PRN (18:17)
[2020-03-18] MEDS: Albuterol HFA INHALER 8 gm MDI INH PRN (19:47)
[2020-03-19] MEDS: Lactulose 30 ml UDC PO SCH ×2 (09:54→21:23)
[2020-03-19] MEDS: SPIRIVA Respimat (tiotropium) 2.5 mcg/inh Inhaler INH SCH (09:55)
[2020-03-19] MEDS: Potassium Chlor 10 meq TAB PO SCH ×2 (09:57→21:23)
[2020-03-19] MEDS: LEVOMEFOLATE CALCIUM 7.5 MG PO SCH (09:58)
[2020-03-19] MEDS: Albuterol HFA INHALER 8 gm MDI INH PRN ×2 (10:01→20:16)
[2020-03-19] MEDS: Mometasone/Formoter 200/5 MDI INH SCH ×2 (10:01→20:16)
[2020-03-19 11:23] LABS: Albumin 2.8 g/dL (3.2-5.2); Albumin/Globulin Ratio 0.8 (1-3); Globulin 3.7 g/dL (2-4); Total Bilirubin 1.3 mg/dL (0.2-1.0); Total Protein 6.5 g/dL (6.4-8.9)
[2020-03-20 06:32] LABS: BUN/Creatinine Ratio 25.3 (8-20); Calcium 8.3 mg/dL (8.6-10.3); EGFR African American 136.3 (>60); EGFR Non-African American 112.6 (>60); Potassium 3.7 mmol/L (3.5-5.0)
[2020-03-20 06:35] LABS: Hematocrit 36 % (42-52); Hemoglobin 12.7 g/dL (14.0-18.0); Mean Corpuscular HGB Conc 35 g/dL (31-36); Mean Corpuscular Hemoglobin 34 pg (27-31); Mean Corpuscular Volume 96 fL (80-94); Mean Platelet Volume 7.9 fL (7.4-10.4); Platelet Count 49 10^3/uL (150-450); Red Blood Count 3.76 10^6 /uL (4.18-5.48); Red Cell Distribution Width 16 % (10-15); White Blood Count 5.1 10^3/uL (3.5-10.8)
[2020-03-20] MEDS: Mometasone/Formoter 200/5 MDI INH SCH ×2 (07:49→20:02)
[2020-03-20] MEDS: Albuterol HFA INHALER 8 gm MDI INH PRN ×2 (07:49→20:02)
[2020-03-20] MEDS: SPIRIVA Respimat (tiotropium) 2.5 mcg/inh Inhaler INH SCH (07:49)
[2020-03-20] MEDS: Potassium Chlor 10 meq TAB PO SCH ×2 (08:02→22:55)
[2020-03-20] MEDS: Polyethylene Glycol 3350 17 GM PACKET PO PRN (08:03)
[2020-03-20] MEDS: Lactulose 30 ml UDC PO SCH ×2 (08:03→22:55)
[2020-03-20] MEDS: LEVOMEFOLATE CALCIUM 7.5 MG PO SCH (09:46)
[2020-03-20] MEDS: Magnesium Hydroxide LIQ 30 ML UDC PO PRN (17:10)
[2020-03-20] MEDS ORDERED: Al Hydrox/Mg Hydrox/Simet LIQ 30 ML UDC PO PRN (17:20)
[2020-03-21 07:22] LABS: ABS Lymphocytes 1.2 10^3/ul (1.0-4.8); ABS Monocytes 0.6 10^3/ul (0-0.8); ABS Neutrophils 2.1 10^3/ul (1.5-7.7); Hematocrit 35 % (42-52); Hemoglobin 12.3 g/dL (14.0-18.0); Lymphocyte % 30.4 %; Mean Corpuscular HGB Conc 35 g/dL (31-36); Mean Corpuscular Hemoglobin 34 pg (27-31); Mean Corpuscular Volume 96 fL (80-94); Mean Platelet Volume 7.9 fL (7.4-10.4); Platelet Count 38 10^3/uL (150-450); Red Blood Count 3.64 10^6 /uL (4.18-5.48); Red Cell Distribution Width 15 % (10-15)
[2020-03-21 07:28] LABS: BUN/Creatinine Ratio 24.7 (8-20); EGFR African American 140.6 (>60); EGFR Non-African American 116.2 (>60); Potassium 3.5 mmol/L (3.5-5.0)
[2020-03-21 07:31] LABS: Troponin I 0.01 ng/mL (<0.03)
[2020-03-21] MEDS: Mometasone/Formoter 200/5 MDI INH SCH ×2 (07:52→20:36)
[2020-03-21] MEDS: SPIRIVA Respimat (tiotropium) 2.5 mcg/inh Inhaler INH SCH (07:53)
[2020-03-21] MEDS: Lactulose 30 ml UDC PO SCH ×2 (08:47→20:54)
[2020-03-21] MEDS: Magnesium Hydroxide LIQ 30 ML UDC PO PRN (08:47)
[2020-03-21] MEDS: Potassium Chlor 10 meq TAB PO SCH ×2 (08:47→20:55)
[2020-03-21] MEDS: LEVOMEFOLATE CALCIUM 7.5 MG PO SCH (08:48)
[2020-03-21] MEDS ORDERED: Bumetanide IV 0.25 MG/ML 4 ml VIAL (1 mg) SLOW PUSH ONE (17:28)
[2020-03-21] MEDS: Albuterol HFA INHALER 8 gm MDI INH PRN (20:36)
[2020-03-22 07:07] LABS: Hematocrit 39 % (42-52); Hemoglobin 13.5 g/dL (14.0-18.0); Mean Corpuscular HGB Conc 35 g/dL (31-36); Mean Corpuscular Hemoglobin 34 pg (27-31); Mean Corpuscular Volume 97 fL (80-94); Mean Platelet Volume 7.2 fL (7.4-10.4); Platelet Count 43 10^3/uL (150-450); Red Cell Distribution Width 15 % (10-15)
[2020-03-22 07:25] LABS: Albumin 2.9 g/dL (3.2-5.2); Albumin/Globulin Ratio 0.9 (1-3); BUN/Creatinine Ratio 20.5 (8-20); Calcium 8.7 mg/dL (8.6-10.3); EGFR African American 121.2 (>60); EGFR Non-African American 100.2 (>60); Globulin 3.3 g/dL (2-4); Magnesium 2.5 mg/dL (1.9-2.7); Potassium 3.5 mmol/L (3.5-5.0); Total Bilirubin 1.9 mg/dL (0.2-1.0); Total Protein 6.2 g/dL (6.4-8.9)
[2020-03-22] MEDS: Mometasone/Formoter 200/5 MDI INH SCH ×2 (08:10→20:05)
[2020-03-22] MEDS: SPIRIVA Respimat (tiotropium) 2.5 mcg/inh Inhaler INH SCH (08:10)
[2020-03-22] MEDS: Lactulose 30 ml UDC PO SCH ×2 (11:14→20:34)
[2020-03-22] MEDS: Potassium Chlor 10 meq TAB PO SCH ×2 (11:15→20:34)
[2020-03-22] MEDS: LEVOMEFOLATE CALCIUM 7.5 MG PO SCH (11:29)
[2020-03-23] MEDS: Albuterol HFA INHALER 8 gm MDI INH PRN ×2 (07:37→20:22)
[2020-03-23] MEDS: Mometasone/Formoter 200/5 MDI INH SCH ×2 (07:37→20:21)
[2020-03-23] MEDS: SPIRIVA Respimat (tiotropium) 2.5 mcg/inh Inhaler INH SCH (07:38)
[2020-03-23] MEDS: Lactulose 30 ml UDC PO SCH ×2 (10:43→20:41)
[2020-03-23] MEDS: Potassium Chlor 10 meq TAB PO SCH ×2 (10:44→20:41)
[2020-03-23] MEDS: LEVOMEFOLATE CALCIUM 7.5 MG PO SCH (10:45)
[2020-03-23 17:52] LABS: INR 1.5 (0.82-1.09)
[2020-03-23 17:53] LABS: Activated Partial Thrombo Time 26.2 seconds (26.0-38.0)
[2020-03-23] MEDS ORDERED: Enoxaparin 100 MG/ML SYR SUBCUT ONE (18:00)
[2020-03-23] MEDS: Magnesium Hydroxide LIQ 30 ML UDC PO PRN (20:45)
[2020-03-24 07:03] LABS: Hematocrit 39 % (42-52); Hemoglobin 13.6 g/dL (14.0-18.0); Mean Corpuscular HGB Conc 35 g/dL (31-36); Mean Corpuscular Hemoglobin 34 pg (27-31); Mean Corpuscular Volume 96 fL (80-94); Mean Platelet Volume 8.2 fL (7.4-10.4); Platelet Count 37 10^3/uL (150-450); Red Blood Count 4.06 10^6 /uL (4.18-5.48); Red Cell Distribution Width 15 % (10-15); White Blood Count 4.5 10^3/uL (3.5-10.8)
[2020-03-24 07:07] LABS: Albumin 2.9 g/dL (3.2-5.2); Albumin/Globulin Ratio 0.9 (1-3); BUN/Creatinine Ratio 21.9 (8-20); Calcium 8.7 mg/dL (8.6-10.3); EGFR African American 140.6 (>60); EGFR Non-African American 116.2 (>60); Globulin 3.3 g/dL (2-4); Potassium 3.3 mmol/L (3.5-5.0); Total Bilirubin 2.5 mg/dL (0.2-1.0); Total Protein 6.2 g/dL (6.4-8.9)
[2020-03-24] MEDS: SPIRIVA Respimat (tiotropium) 2.5 mcg/inh Inhaler INH SCH ×2 (07:58→08:27)
[2020-03-24] MEDS: Mometasone/Formoter 200/5 MDI INH SCH ×3 (07:58→19:36)
[2020-03-24] MEDS: Albuterol HFA INHALER 8 gm MDI INH PRN (08:26)
[2020-03-24] MEDS ORDERED: Potassium Chlor 20 meq TAB.ER PO ONE (09:00)
[2020-03-24] MEDS: Potassium Chlor 10 meq TAB PO SCH ×2 (10:38→21:54)
[2020-03-24] MEDS: Lactulose 30 ml UDC PO SCH ×2 (10:40→21:54)
[2020-03-24] MEDS: LEVOMEFOLATE CALCIUM 7.5 MG PO SCH (10:42)
[2020-03-24] MEDS ORDERED: Enoxaparin 80 MG/0.8 ML SYR SUBCUT ONE ×2 (18:00)
[2020-03-24] MEDS: Magnesium Hydroxide LIQ 30 ML UDC PO PRN (21:54)
[2020-03-25 06:56] LABS: Hematocrit 41 % (42-52); Hemoglobin 14.2 g/dL (14.0-18.0); Mean Corpuscular HGB Conc 35 g/dL (31-36); Mean Corpuscular Hemoglobin 34 pg (27-31); Mean Corpuscular Volume 96 fL (80-94); Mean Platelet Volume 7.5 fL (7.4-10.4); Platelet Count 46 10^3/uL (150-450); Red Blood Count 4.23 10^6 /uL (4.18-5.48); Red Cell Distribution Width 16 % (10-15); White Blood Count 6.4 10^3/uL (3.5-10.8)
[2020-03-25 07:10] LABS: Albumin 3.2 g/dL (3.2-5.2); Albumin/Globulin Ratio 0.9 (1-3); BUN/Creatinine Ratio 23.2 (8-20); Calcium 9.3 mg/dL (8.6-10.3); EGFR African American 122.9 (>60); EGFR Non-African American 101.6 (>60); Globulin 3.5 g/dL (2-4); Magnesium 2.5 mg/dL (1.9-2.7); Total Bilirubin 2.5 mg/dL (0.2-1.0); Total Protein 6.7 g/dL (6.4-8.9)
[2020-03-25] MEDS: SPIRIVA Respimat (tiotropium) 2.5 mcg/inh Inhaler INH SCH (07:29)
[2020-03-25] MEDS: Mometasone/Formoter 200/5 MDI INH SCH ×2 (07:29→19:44)
[2020-03-25] MEDS: Albuterol HFA INHALER 8 gm MDI INH PRN ×2 (07:30→19:48)
[2020-03-25] MEDS ORDERED: Midazolam 10 mg/10 ml VIAL 1 mg/ml 10 ml VIAL (10 mg) ONE (11:46)
[2020-03-25] MEDS ORDERED: diPHENhydraMINE IV 50 MG/ML 1 ml VIAL (BENADRYL) ONE (11:47)
[2020-03-25] MEDS ORDERED: fentaNYL 100 mcg/2 ml 50 MCG/ML VIAL ONE ×2 (11:47→15:09)
[2020-03-25 13:43] LABS: Mean Platelet Volume 7.7 fL (7.4-10.4); Platelet Count 57 10^3/uL (150-450)
[2020-03-25] MEDS: Lactulose 30 ml UDC PO SCH ×2 (14:23→19:53)
[2020-03-25] MEDS: LEVOMEFOLATE CALCIUM 7.5 MG PO SCH (14:23)
[2020-03-25] MEDS: Potassium Chlor 10 meq TAB PO SCH ×2 (14:24→19:52)
[2020-03-25] MEDS ORDERED: Heparin 2 UNITS/ML 1000 mls 1,000 ML IV ONE (15:20)
[2020-03-25] MEDS: Enoxaparin 100 MG/ML SYR SUBCUT SCH (17:44)
[2020-03-26] MEDS: Enoxaparin 100 MG/ML SYR SUBCUT SCH ×2 (05:13→14:10)
[2020-03-26 05:34] LABS: Hematocrit 37 % (42-52); Hemoglobin 12.9 g/dL (14.0-18.0); Mean Corpuscular HGB Conc 35 g/dL (31-36); Mean Corpuscular Hemoglobin 34 pg (27-31); Mean Corpuscular Volume 96 fL (80-94); Platelet Count 48 10^3/uL (150-450); Red Blood Count 3.81 10^6 /uL (4.18-5.48); Red Cell Distribution Width 16 % (10-15); White Blood Count 6.1 10^3/uL (3.5-10.8)
[2020-03-26 05:40] LABS: BUN/Creatinine Ratio 19.8 (8-20); Calcium 8.3 mg/dL (8.6-10.3); EGFR African American 116.4 (>60); EGFR Non-African American 96.2 (>60); Potassium 3.7 mmol/L (3.5-5.0)
[2020-03-26] MEDS: Albuterol HFA INHALER 8 gm MDI INH PRN ×2 (07:17→19:32)
[2020-03-26] MEDS: SPIRIVA Respimat (tiotropium) 2.5 mcg/inh Inhaler INH SCH (07:17)
[2020-03-26] MEDS: Mometasone/Formoter 200/5 MDI INH SCH ×2 (07:17→19:32)
[2020-03-26] MEDS: Lactulose 30 ml UDC PO SCH ×2 (09:02→20:45)
[2020-03-26] MEDS: LEVOMEFOLATE CALCIUM 7.5 MG PO SCH (09:03)
[2020-03-26] MEDS: Potassium Chlor 10 meq TAB PO SCH ×2 (09:08→20:45)
[2020-03-26 19:14] LABS: Hematocrit 39 % (42-52); Hemoglobin 13.6 g/dL (14.0-18.0)
[2020-03-27] MEDS: Enoxaparin 100 MG/ML SYR SUBCUT SCH ×2 (05:12→17:16)
[2020-03-27 06:59] LABS: Hematocrit 37 % (42-52); Mean Corpuscular HGB Conc 35 g/dL (31-36); Mean Corpuscular Hemoglobin 34 pg (27-31); Mean Corpuscular Volume 96 fL (80-94); Mean Platelet Volume 8.4 fL (7.4-10.4); Platelet Count 56 10^3/uL (150-450); Red Blood Count 3.84 10^6 /uL (4.18-5.48); Red Cell Distribution Width 15 % (10-15)
[2020-03-27 07:10] LABS: BUN/Creatinine Ratio 21.3 (8-20); Calcium 8.6 mg/dL (8.6-10.3); EGFR African American 136.3 (>60); EGFR Non-African American 112.6 (>60); Potassium 3.2 mmol/L (3.5-5.0)
[2020-03-27] MEDS: SPIRIVA Respimat (tiotropium) 2.5 mcg/inh Inhaler INH SCH (08:11)
[2020-03-27] MEDS: Mometasone/Formoter 200/5 MDI INH SCH ×2 (08:11→19:37)
[2020-03-27] MEDS: Albuterol HFA INHALER 8 gm MDI INH PRN (08:12)
[2020-03-27] MEDS: Potassium Chlor 10 meq TAB PO SCH ×2 (09:06→21:21)
[2020-03-27] MEDS: LEVOMEFOLATE CALCIUM 7.5 MG PO SCH (09:07)
[2020-03-27] MEDS: Lactulose 30 ml UDC PO SCH ×2 (09:07→21:22)
[2020-03-27] MEDS ORDERED: Potassium Chlor 20 meq TAB.ER PO ONE (10:31)
[2020-03-27 11:20] LABS: Magnesium 2.2 mg/dL (1.9-2.7)
[2020-03-27] MEDS: Magnesium Hydroxide LIQ 30 ML UDC PO PRN (12:23)
[2020-03-27] MEDS: Polyethylene Glycol 3350 17 GM PACKET PO PRN (17:16)
[2020-03-28] MEDS: Senna TAB 8.6 mg TAB PO PRN (03:31)
[2020-03-28] MEDS: Enoxaparin 100 MG/ML SYR SUBCUT SCH ×2 (04:32→16:39)
[2020-03-28 05:39] LABS: BUN/Creatinine Ratio 19.2 (8-20); Calcium 8.7 mg/dL (8.6-10.3); EGFR African American 140.6 (>60); EGFR Non-African American 116.2 (>60); Potassium 3.7 mmol/L (3.5-5.0)
[2020-03-28 06:40] LABS: Hematocrit 38 % (42-52); Hemoglobin 13.4 g/dL (14.0-18.0); Mean Corpuscular HGB Conc 36 g/dL (31-36); Mean Corpuscular Hemoglobin 34 pg (27-31); Mean Corpuscular Volume 95 fL (80-94); Mean Platelet Volume 7.2 fL (7.4-10.4); Platelet Count 68 10^3/uL (150-450); Red Blood Count 3.96 10^6 /uL (4.18-5.48); Red Cell Distribution Width 16 % (10-15); White Blood Count 6.3 10^3/uL (3.5-10.8)
[2020-03-28] MEDS: SPIRIVA Respimat (tiotropium) 2.5 mcg/inh Inhaler INH SCH (07:08)
[2020-03-28] MEDS: Mometasone/Formoter 200/5 MDI INH SCH ×2 (07:08→19:32)
[2020-03-28] MEDS: Lactulose 30 ml UDC PO SCH ×2 (08:47→21:08)
[2020-03-28] MEDS: Polyethylene Glycol 3350 17 GM PACKET PO PRN (08:47)
[2020-03-28] MEDS: LEVOMEFOLATE CALCIUM 7.5 MG PO SCH (08:47)
[2020-03-28] MEDS: Potassium Chlor 10 meq TAB PO SCH ×2 (08:49→21:08)
[2020-03-28] MEDS: Magnesium Hydroxide LIQ 30 ML UDC PO PRN (16:40)
[2020-03-29] MEDS: Enoxaparin 100 MG/ML SYR SUBCUT SCH ×2 (04:26→17:54)
[2020-03-29] MEDS: Mometasone/Formoter 200/5 MDI INH SCH ×2 (07:26→20:10)
[2020-03-29] MEDS: SPIRIVA Respimat (tiotropium) 2.5 mcg/inh Inhaler INH SCH (07:27)
[2020-03-29] MEDS: Albuterol HFA INHALER 8 gm MDI INH PRN ×2 (07:27→20:09)
[2020-03-29 07:52] LABS: BUN/Creatinine Ratio 20.3 (8-20); Calcium 8.7 mg/dL (8.6-10.3); EGFR African American 138.4 (>60); EGFR Non-African American 114.4 (>60); Potassium 3.5 mmol/L (3.5-5.0)
[2020-03-29 07:53] LABS: INR 1.31 (0.82-1.09)
[2020-03-29 07:54] LABS: ABS Eosinophils 0.1 10^3/ul (0-0.6); ABS Lymphocytes 1.7 10^3/ul (1.0-4.8); ABS Monocytes 1.1 10^3/ul (0-0.8); Eosinophil % 0.7 %; Hematocrit 40 % (42-52); Hemoglobin 14.1 g/dL (14.0-18.0); Lymphocyte % 21.5 %; Mean Corpuscular HGB Conc 36 g/dL (31-36); Mean Corpuscular Hemoglobin 34 pg (27-31); Mean Corpuscular Volume 95 fL (80-94); Mean Platelet Volume 7.4 fL (7.4-10.4); Nucleated Red Blood Cells % 0.1; Platelet Count 80 10^3/uL (150-450); Red Blood Count 4.18 10^6 /uL (4.18-5.48); Red Cell Distribution Width 16 % (10-15); White Blood Count 7.9 10^3/uL (3.5-10.8)
[2020-03-29] MEDS: Lactulose 30 ml UDC PO SCH ×2 (09:52→22:03)
[2020-03-29] MEDS: LEVOMEFOLATE CALCIUM 7.5 MG PO SCH (09:53)
[2020-03-29] MEDS: Magnesium Hydroxide LIQ 30 ML UDC PO PRN (09:53)
[2020-03-29] MEDS: Polyethylene Glycol 3350 17 GM PACKET PO PRN (09:55)
[2020-03-29] MEDS: Potassium Chlor 10 meq TAB PO SCH ×2 (09:55→22:03)
[2020-03-29] MEDS: Senna TAB 8.6 mg TAB PO PRN (09:55)
[2020-03-30 06:17] LABS: Hematocrit 35 % (42-52); Hemoglobin 12.4 g/dL (14.0-18.0); Mean Corpuscular HGB Conc 35 g/dL (31-36); Mean Corpuscular Hemoglobin 34 pg (27-31); Mean Corpuscular Volume 96 fL (80-94); Mean Platelet Volume 7.6 fL (7.4-10.4); Platelet Count 66 10^3/uL (150-450); Red Blood Count 3.68 10^6 /uL (4.18-5.48); Red Cell Distribution Width 16 % (10-15); White Blood Count 6.3 10^3/uL (3.5-10.8)
[2020-03-30] MEDS: Enoxaparin 100 MG/ML SYR SUBCUT SCH (06:22)
[2020-03-30 06:27] LABS: Calcium 8.5 mg/dL (8.6-10.3); Potassium 3.3 mmol/L (3.5-5.0)
[2020-03-30 06:32] LABS: BUN/Creatinine Ratio 21.6 (8-20); EGFR African American 138.4 (>60); EGFR Non-African American 114.4 (>60)
[2020-03-30] MEDS: Mometasone/Formoter 200/5 MDI INH SCH (07:29)
[2020-03-30] MEDS: SPIRIVA Respimat (tiotropium) 2.5 mcg/inh Inhaler INH SCH (07:29)
[2020-03-30] MEDS: Albuterol HFA INHALER 8 gm MDI INH PRN (07:29)
[2020-03-30] MEDS: LEVOMEFOLATE CALCIUM 7.5 MG PO SCH (08:35)
[2020-03-30] MEDS: Potassium Chlor 10 meq TAB PO SCH (08:36)
[2020-03-30] MEDS: Lactulose 30 ml UDC PO SCH (08:36)
[2020-03-30 08:39] VITALS: BP 127/67
[2020-03-30] MEDS ORDERED: Potassium Chlor 20 meq TAB.ER PO ONE (09:30)
== END 2020-03-30 11:10 | DRG 137 ==
LOC: ED 10:25 → MED 10:25 → ICU 03-09 12:51 → MED 03-14 16:44
PROVIDERS: ADMIT Student in an Organized Health Care Education/Training Program; ATTEND Internal Medicine

== ENCOUNTER 2020-07-05 15:51 | Inpatient (IN) ==
[2020-07-05 16:57] LABS: ABS Eosinophils 0.1 10^3/ul (0-0.6); ABS Monocytes 0.6 10^3/ul (0-0.8); ABS Neutrophils 1.8 10^3/ul (1.5-7.7); Eosinophil % 3.4 %; Hematocrit 33 % (42-52); Hemoglobin 11.3 g/dL (14.0-18.0); Lymphocyte % 28.4 %; Mean Corpuscular HGB Conc 35 g/dL (31-36); Mean Corpuscular Hemoglobin 32 pg (27-31); Mean Corpuscular Volume 93 fL (80-94); Platelet Count 74 10^3/uL (150-450); Red Cell Distribution Width 13 % (10-15); White Blood Count 3.6 10^3/uL (3.5-10.8)
[2020-07-05 17:00] LABS: INR 1.4 (0.82-1.09)
[2020-07-05 17:19] LABS: Albumin 3.2 g/dL (3.2-5.2); Calcium 9.1 mg/dL (8.6-10.3); EGFR African American 175.5 (>60); Globulin 2.9 g/dL (2-4); Total Protein 6.1 g/dL (6.4-8.9)
[2020-07-05 17:20] LABS: Albumin/Globulin Ratio 1.1 (1-3); Total Bilirubin 2.1 mg/dL (0.2-1.0)
[2020-07-05 18:08] LABS: Potassium 4.4 mmol/L (3.5-5.0)
[2020-07-05 19:42] LABS: Alcohol, S < 10 mg/dL (<10)
[2020-07-05] MEDS ORDERED: Bumetanide IV 0.25 MG/ML 4 ml VIAL (1 mg) SLOW PUSH ONE ×2 (20:28→22:16)
[2020-07-05] MEDS ORDERED: Albuterol HFA INHALER 8 gm MDI INH PRN (23:33)
[2020-07-06] MEDS ORDERED: Al Hydrox/Mg Hydrox/Simet LIQ 30 ML UDC PO PRN (00:29)
[2020-07-06] MEDS: Mometasone/Formoter 200/5 MDI INH SCH ×3 (00:57→19:51)
[2020-07-06] MEDS ORDERED: Bumetanide IV 0.25 MG/ML 4 ml VIAL (1 mg) SLOW PUSH ONE (07:00)
[2020-07-06] MEDS ORDERED: Lactulose 30 ml UDC PO SCH (09:00)
[2020-07-06] MEDS: Cholecalciferol (VIT D3) 1,000 unit TAB PO SCH (09:20)
[2020-07-06 10:23] LABS: C Reactive Protein 24.56 mg/L (<8.01)
[2020-07-06 10:57] LABS: Indirect Bilirubin 1.5 mg/dL (0.3-1.0)
[2020-07-06 12:03] LABS: Total Bilirubin 2.1 mg/dL (0.2-1.0)
[2020-07-06] MEDS: Lactulose 30 ml UDC PO SCH ×2 (13:32→21:22)
[2020-07-06] MEDS: Bumetanide IV 0.25 MG/ML 4 ml VIAL (1 mg) SLOW PUSH SCH (13:41)
[2020-07-06] MEDS ORDERED: COVID-19 VACCINE, AD26(JANSSEN)/PF 0.5 ML IM ONE (16:00)
[2020-07-06] MEDS ORDERED: Bumetanide IV 0.25 MG/ML 4 ml VIAL (1 mg) SLOW PUSH SCH (21:00)
[2020-07-06] MEDS ORDERED: Lorazepam PYXIS KEY PRN (21:10)
[2020-07-06] MEDS ORDERED: LORazepam 2 mg VIAL 1 ml IV PUSH PRN (21:10)
[2020-07-06 22:59] LABS: Urine Appearance Clear; Urine Bilirubin Negative (Negative); Urine Blood Negative (Negative); Urine Color Yellow; Urine Glucose Negative (Negative); Urine Ketones Negative (Negative); Urine Nitrite Negative (Negative); Urine Protein Negative (Negative); Urine Specific Gravity 1.005 (1.002-1.030); Urine Urobilinogen Positive (Negative)
[2020-07-07] MEDS: Bumetanide IV 0.25 MG/ML 4 ml VIAL (1 mg) SLOW PUSH SCH ×2 (05:19→15:30)
[2020-07-07 07:57] LABS: Calcium 8.2 mg/dL (8.6-10.3); EGFR African American 114.3 (>60); EGFR Non-African American 94.5 (>60); Potassium 3.8 mmol/L (3.5-5.0)
[2020-07-07] MEDS: Cholecalciferol (VIT D3) 1,000 unit TAB PO SCH (09:36)
[2020-07-07] MEDS: Lactulose 30 ml UDC PO SCH ×4 (09:43→20:52)
[2020-07-07] MEDS: Mometasone/Formoter 200/5 MDI INH SCH ×2 (10:19→21:05)
[2020-07-08 06:03] LABS: Anion Gap 4 mmol/L (2-11); Blood Urea Nitrogen 12 mg/dL (6-24); CO2 Carbon Dioxide 27 mmol/L (22-32); Calcium 8.6 mg/dL (8.6-10.3); Chloride 103 mmol/L (101-111); EGFR African American 129.7 (>60); EGFR Non-African American 107.2 (>60); Glucose 100 mg/dL (70-100); Potassium 3.8 mmol/L (3.5-5.0); Sodium 134 mmol/L (135-145)
[2020-07-08] MEDS: Bumetanide IV 0.25 MG/ML 4 ml VIAL (1 mg) SLOW PUSH SCH ×2 (07:31→14:02)
[2020-07-08] MEDS: Cholecalciferol (VIT D3) 1,000 unit TAB PO SCH (08:58)
[2020-07-08] MEDS: Lactulose 30 ml UDC PO SCH ×2 (09:01→14:00)
[2020-07-08] MEDS: Mometasone/Formoter 200/5 MDI INH SCH ×2 (10:09→19:47)
[2020-07-08 16:34] LABS: % Iron Saturation 11 % (15-55); Iron 41 ug/dL (50-212); Total Iron Binding Capacity 372 mcg/dL (250-450); Transferrin 266 mg/dL (203-362); Unsaturated Iron Binding < 357 ug/dL
[2020-07-08 16:49] LABS: TSH Ultra Thyroid Stim Horm 0.58 mcIU/mL (0.34-5.60)
[2020-07-08 16:54] LABS: Ferritin 65.2 ng/mL (24-336)
[2020-07-09] MEDS: Lactulose 30 ml UDC PO SCH (00:11)
[2020-07-09] MEDS: Bumetanide IV 0.25 MG/ML 4 ml VIAL (1 mg) SLOW PUSH SCH (05:32)
[2020-07-09 06:17] LABS: Calcium 8.8 mg/dL (8.6-10.3); Potassium 3.7 mmol/L (3.5-5.0)
[2020-07-09 06:23] LABS: EGFR African American 137.8 (>60); EGFR Non-African American 113.9 (>60)
[2020-07-09] MEDS: Mometasone/Formoter 200/5 MDI INH SCH ×2 (08:18→19:27)
[2020-07-09] MEDS: Cholecalciferol (VIT D3) 1,000 unit TAB PO SCH (08:22)
[2020-07-09] MEDS ORDERED: Iron Sucrose 200 MG in NS 0.9% 100 ml BAG 100 ML IVPB ONE (15:00)
[2020-07-10 07:09] LABS: Calcium 9.2 mg/dL (8.6-10.3); EGFR African American 112.8 (>60); EGFR Non-African American 93.2 (>60); Potassium 3.9 mmol/L (3.5-5.0)
[2020-07-10] MEDS: Mometasone/Formoter 200/5 MDI INH SCH ×2 (07:10→20:10)
[2020-07-10] MEDS: Cholecalciferol (VIT D3) 1,000 unit TAB PO SCH (08:05)
[2020-07-10] MEDS ORDERED: Iron Sucrose 200 MG in NS 0.9% 100 ml BAG 100 ML IVPB ONE (11:00)
[2020-07-10 14:06] LABS: Hematocrit 34 % (42-52); Hemoglobin 12.1 g/dL (14.0-18.0); Mean Corpuscular HGB Conc 36 g/dL (31-36); Mean Corpuscular Hemoglobin 33 pg (27-31); Mean Corpuscular Volume 92 fL (80-94); Mean Platelet Volume 8.1 fL (7.4-10.4); Platelet Count 103 10^3/uL (150-450); Red Blood Count 3.68 10^6 /uL (4.18-5.48); Red Cell Distribution Width 13 % (10-15); White Blood Count 5.5 10^3/uL (3.5-10.8)
[2020-07-10] MEDS ORDERED: Bumetanide IV 0.25 MG/ML 4 ml VIAL (1 mg) SLOW PUSH ONE (16:26)
[2020-07-11 05:47] LABS: Calcium 9.1 mg/dL (8.6-10.3); EGFR African American 103.3 (>60); EGFR Non-African American 85.3 (>60); Magnesium 1.9 mg/dL (1.9-2.7); Potassium 3.9 mmol/L (3.5-5.0)
[2020-07-11] MEDS: Mometasone/Formoter 200/5 MDI INH SCH (09:42)
[2020-07-11] MEDS: Cholecalciferol (VIT D3) 1,000 unit TAB PO SCH (10:13)
[2020-07-11 11:32] VITALS: BP 101/50
== END 2020-07-11 16:35 | disposition home or self-care (01) | DRG 280 ==
LOC: ED 15:51 → MEDTELE 22:54 → MED 07-08 23:29
PROVIDERS: ADMIT Internal Medicine; ATTEND Internal Medicine

== ENCOUNTER 2020-09-28 14:35 | Inpatient (IN) ==
[2020-09-28] MEDS ORDERED: fentaNYL 100 mcg/2 ml 50 MCG/ML VIAL ONE (14:44)
[2020-09-28] MEDS ORDERED: LORazepam 2 mg VIAL 1 ml ONE (14:50)
[2020-09-28] MEDS ORDERED: Lactated Ringers 1000 ml BAG 1,000 ML IV ONE ×2 (14:57→16:44)
[2020-09-28 15:11] LABS: ABS Eosinophils 0.1 10^3/ul (0-0.6); ABS Monocytes 1.2 10^3/ul (0-0.8); ABS Neutrophils 6.3 10^3/ul (1.5-7.7); Eosinophil % 1.3 %; Hematocrit 43 % (42-52); Hemoglobin 15.1 g/dL (14.0-18.0); Lymphocyte % 11.9 %; Mean Corpuscular HGB Conc 35 g/dL (31-36); Mean Corpuscular Hemoglobin 34 pg (27-31); Mean Corpuscular Volume 97 fL (80-94); Mean Platelet Volume 7.9 fL (7.4-10.4); Nucleated Red Blood Cells % 0.1; Platelet Count 141 10^3/uL (150-450); Red Blood Count 4.47 10^6 /uL (4.18-5.48); Red Cell Distribution Width 15 % (10-15); White Blood Count 8.7 10^3/uL (3.5-10.8)
[2020-09-28] MEDS ORDERED: fentaNYL 100 mcg/2 ml 50 MCG/ML VIAL IV SLOW PU ONE (15:14)
[2020-09-28] MEDS ORDERED: LORazepam 2 mg VIAL 1 ml IV PUSH ONE ×2 (15:15→17:06)
[2020-09-28] MEDS ORDERED: Lorazepam PYXIS KEY PRN ×2 (15:15→17:06)
[2020-09-28] MEDS ORDERED: Acetaminophen IV 1 GM/100ML 100 ML IV ONE (15:32)
[2020-09-28 15:40] LABS: Albumin 4.8 g/dL (3.2-5.2); Albumin/Globulin Ratio 1.1 (1-3); Calcium 9.8 mg/dL (8.6-10.3); EGFR African American 98.5 (>60); EGFR Non-African American 81.4 (>60); Globulin 4.2 g/dL (2-4); Magnesium 1.9 mg/dL (1.9-2.7); Potassium 4.5 mmol/L (3.5-5.0); Total Bilirubin 3.3 mg/dL (0.2-1.0)
[2020-09-28 15:50] LABS: Troponin I 0.01 ng/mL (<0.03)
[2020-09-28 16:51] LABS: Urine Appearance Clear; Urine Bilirubin Negative (Negative); Urine Blood Negative (Negative); Urine Color Straw; Urine Glucose Negative (Negative); Urine Ketones Negative (Negative); Urine Nitrite Negative (Negative); Urine Protein Negative (Negative); Urine Specific Gravity 1.004 (1.002-1.030); Urine Urobilinogen Negative (Negative)
[2020-09-28 17:05] LABS: Urine Benzodiazepine Screen None Detected (None Detect); Urine Cannabinoids Screen None Detected (None Detect); Urine Opiates Screen None Detected (None Detect)
[2020-09-28] MEDS ORDERED: Thiamine 100 MG/ML 2 ml VIAL (200 mg) IM ONE (19:37)
[2020-09-28] MEDS ORDERED: Albuterol HFA INHALER 8 gm MDI INH PRN (19:42)
[2020-09-28] MEDS: Thiamine 100 MG/ML 2 ml VIAL 250 MG in NS 0.9% 100 ml BAG 100 ML IV SCH (19:47)
[2020-09-28 20:06] LABS: Rapid COVID-19 Molecular Undetected (Undetected)
[2020-09-28 20:18] LABS: Phosphorus 4.3 mg/dL (2.5-5.0)
[2020-09-28 20:35] LABS: TSH Ultra Thyroid Stim Horm 1.87 mcIU/mL (0.34-5.60)
[2020-09-28] MEDS ORDERED: Potassium Chlor 20 meq TAB.ER PO SCH (21:00)
[2020-09-28] MEDS ORDERED: Fluticasone HFA 110 mcg(NF) MDI INH SCH (21:00)
[2020-09-28] MEDS: Lactulose 30 ml UDC PO SCH (22:20)
[2020-09-29] MEDS: Mometasone/Formoter 200/5 MDI INH SCH ×3 (02:14→19:52)
[2020-09-29 05:45] LABS: INR 1.62 (0.86-1.15)
[2020-09-29 05:49] LABS: ABS Eosinophils 0.2 10^3/ul (0-0.6); ABS Lymphocytes 0.9 10^3/ul (1.0-4.8); ABS Monocytes 0.8 10^3/ul (0-0.8); ABS Neutrophils 3.6 10^3/ul (1.5-7.7); Eosinophil % 3.2 %; Hematocrit 38 % (42-52); Hemoglobin 13.2 g/dL (14.0-18.0); Mean Corpuscular HGB Conc 35 g/dL (31-36); Mean Corpuscular Hemoglobin 34 pg (27-31); Mean Corpuscular Volume 96 fL (80-94); Platelet Count 89 10^3/uL (150-450); Red Blood Count 3.92 10^6 /uL (4.18-5.48); Red Cell Distribution Width 15 % (10-15); White Blood Count 5.5 10^3/uL (3.5-10.8)
[2020-09-29 05:54] LABS: Albumin/Globulin Ratio 1.2 (1-3); Calcium 9.1 mg/dL (8.6-10.3); Direct Bilirubin 0.6 mg/dL (0.03-0.18); EGFR African American 107.2 (>60); EGFR Non-African American 88.6 (>60); Globulin 3.4 g/dL (2-4); Magnesium 2.2 mg/dL (1.9-2.7); Potassium 3.8 mmol/L (3.5-5.0); Total Bilirubin 2.6 mg/dL (0.2-1.0); Total Protein 7.4 g/dL (6.4-8.9)
[2020-09-29] MEDS: Lactulose 30 ml UDC PO SCH ×2 (09:44→19:48)
[2020-09-29] MEDS: Multivitamins/Minerals TAB PO SCH (09:45)
[2020-09-29] MEDS: Cholecalciferol (VIT D3) 1,000 unit TAB PO SCH (09:45)
[2020-09-29] MEDS: Thiamine 100 MG/ML 2 ml VIAL 250 MG in NS 0.9% 100 ml BAG 100 ML IV SCH (19:48)
[2020-09-30 05:18] LABS: ABS Eosinophils 0.3 10^3/ul (0-0.6); ABS Lymphocytes 1.2 10^3/ul (1.0-4.8); ABS Monocytes 1.3 10^3/ul (0-0.8); ABS Neutrophils 5.8 10^3/ul (1.5-7.7); Eosinophil % 3.3 %; Hematocrit 39 % (42-52); Hemoglobin 13.7 g/dL (14.0-18.0); Lymphocyte % 14.2 %; Mean Corpuscular HGB Conc 35 g/dL (31-36); Mean Corpuscular Hemoglobin 34 pg (27-31); Mean Corpuscular Volume 97 fL (80-94); Mean Platelet Volume 7.7 fL (7.4-10.4); Nucleated Red Blood Cells % 0.1; Platelet Count 110 10^3/uL (150-450); Red Blood Count 4.05 10^6 /uL (4.18-5.48); Red Cell Distribution Width 15 % (10-15); White Blood Count 8.6 10^3/uL (3.5-10.8)
[2020-09-30 05:49] LABS: Albumin 4.1 g/dL (3.2-5.2); Albumin/Globulin Ratio 1.2 (1-3); Globulin 3.5 g/dL (2-4); Magnesium 2.2 mg/dL (1.9-2.7); Potassium 3.8 mmol/L (3.5-5.0); Total Bilirubin 2.3 mg/dL (0.2-1.0); Total Protein 7.6 g/dL (6.4-8.9)
[2020-09-30] MEDS: Mometasone/Formoter 200/5 MDI INH SCH ×2 (08:04→20:15)
[2020-09-30] MEDS: Lactulose 30 ml UDC PO SCH ×2 (08:29→21:29)
[2020-09-30] MEDS: Cholecalciferol (VIT D3) 1,000 unit TAB PO SCH (08:32)
[2020-09-30] MEDS: Multivitamins/Minerals TAB PO SCH (08:33)
[2020-09-30] MEDS ORDERED: NS 0.9% 1000 ml BAG 1,000 ML IV SCH (14:30)
[2020-10-01 05:47] LABS: Hematocrit 39 % (42-52); Hemoglobin 13.7 g/dL (14.0-18.0); Mean Corpuscular HGB Conc 35 g/dL (31-36); Mean Corpuscular Hemoglobin 33 pg (27-31); Mean Corpuscular Volume 95 fL (80-94); Mean Platelet Volume 8.1 fL (7.4-10.4); Platelet Count 124 10^3/uL (150-450); Red Blood Count 4.12 10^6 /uL (4.18-5.48); Red Cell Distribution Width 15 % (10-15); White Blood Count 12.2 10^3/uL (3.5-10.8)
[2020-10-01 05:53] LABS: INR 1.61 (0.86-1.15)
[2020-10-01 06:07] LABS: Albumin/Globulin Ratio 1.1 (1-3); EGFR African American 87.2 (>60); EGFR Non-African American 72.1 (>60); Globulin 3.5 g/dL (2-4); Magnesium 2.4 mg/dL (1.9-2.7); Potassium 3.7 mmol/L (3.5-5.0); Total Bilirubin 2.3 mg/dL (0.2-1.0); Total Protein 7.5 g/dL (6.4-8.9)
[2020-10-01 06:19] LABS: ABS Eosinophils 0.3 10^3/ul (0-0.6); ABS Lymphocytes 1.7 10^3/ul (1.0-4.8); ABS Monocytes 1.7 10^3/ul (0-0.8); ABS Neutrophils 8.5 10^3/ul (1.5-7.7); Eosinophil % 2.5 %; Lymphocyte % 13.6 %
[2020-10-01] MEDS: Mometasone/Formoter 200/5 MDI INH SCH (07:43)
[2020-10-01] MEDS: Cholecalciferol (VIT D3) 1,000 unit TAB PO SCH (08:11)
[2020-10-01] MEDS: Lactulose 30 ml UDC PO SCH (08:11)
[2020-10-01] MEDS: Multivitamins/Minerals TAB PO SCH (08:13)
[2020-10-01 09:16] VITALS: BP 136/77
[2020-10-01 14:35] LABS: Hepatitis B Surface Antigen Nonreactive (Nonreactive)
[2020-10-01 14:41] LABS: Hepatitis A Ab IgM Negative (Negative); Hepatitis B Core IgM Nonreactive (Nonreactive)
[2020-10-01 14:53] LABS: Hepatitis C Antibody Negative (Negative)
== END 2020-10-01 14:00 | disposition home or self-care (01) | DRG 775 ==
LOC: ED 14:35 → MEDTELE 20:41 → SUATTDRO 20:41 → MEDTELE 22:28
PROVIDERS: ADMIT Internal Medicine; ATTEND Internal Medicine

== ENCOUNTER 2020-11-12 16:34 | Inpatient (IN) ==
[2020-11-12] MEDS ORDERED: Thiamine 100 MG/ML 2 ml VIAL (200 mg) IM ONE (17:00)
[2020-11-12] MEDS ORDERED: LORazepam 2 mg VIAL 1 ml IV PUSH SCH ×2 (17:00→21:00)
[2020-11-12] MEDS ORDERED: Lorazepam PYXIS KEY PRN (17:07)
[2020-11-12] MEDS ORDERED: LORazepam 2 mg VIAL 1 ml IV PUSH ONE (17:07)
[2020-11-12] MEDS ORDERED: Pantoprazole 80 mg in NS BAG 80 MG/250 ML BAG IV ONE (17:07)
[2020-11-12 17:21] LABS: ABS Lymphocytes 0.7 10^3/ul (1.0-4.8); ABS Monocytes 0.7 10^3/ul (0-0.8); ABS Neutrophils 2.4 10^3/ul (1.5-7.7); Eosinophil % 0.2 %; Hematocrit 39 % (42-52); Lymphocyte % 18.9 %; Mean Corpuscular HGB Conc 36 g/dL (31-36); Mean Corpuscular Hemoglobin 33 pg (27-31); Mean Corpuscular Volume 94 fL (80-94); Nucleated Red Blood Cells % 0.1; Red Blood Count 4.21 10^6 /uL (4.18-5.48); Red Cell Distribution Width 15 % (10-15); White Blood Count 3.8 10^3/uL (3.5-10.8)
[2020-11-12 17:30] LABS: ALT 40 U/L (7-52); AST 64 U/L (13-39); Albumin 3.9 g/dL (3.2-5.2); Albumin/Globulin Ratio 1.2 (1-3); Alkaline Phosphatase 183 U/L (35-149); Anion Gap 11 mmol/L (2-11); Blood Urea Nitrogen 7 mg/dL (6-24); CO2 Carbon Dioxide 28 mmol/L (22-32); Calcium 9.4 mg/dL (8.6-10.3); Chloride 96 mmol/L (101-111); EGFR African American 117.4 (>60); Globulin 3.3 g/dL (2-4); Glucose 116 mg/dL (70-100); Potassium 3.3 mmol/L (3.5-5.0); Sodium 135 mmol/L (135-145); Total Protein 7.2 g/dL (6.4-8.9)
[2020-11-12 17:31] LABS: Troponin I 0.01 ng/mL (<0.03)
[2020-11-12] MEDS ORDERED: Ondansetron 4 mg VIAL 2 MG/ML 2 ml VIAL IV ONE (17:49)
[2020-11-12 17:52] LABS: Alcohol, S < 13 mg/dL (<13)
[2020-11-12 18:15] LABS: Mean Platelet Volume 7.5 fL (7.4-10.4); Platelet Count 87 10^3/uL (150-450)
[2020-11-12] MEDS ORDERED: Magnesium Sulfate IV 1GM/100ML 1 GM/100 ML BAG IV ONE (19:21)
[2020-11-12 19:52] LABS: Magnesium 1.3 mg/dL (1.9-2.7)
[2020-11-12 20:21] LABS: Ammonia 59 mcmol/L (16-53)
[2020-11-12] MEDS ORDERED: Magnesium Sulf 4 GM/100 ML IV 4,000 MG/100 ML BAG IVPB ONE (20:22)
[2020-11-12 20:51] LABS: INR 1.45 (0.86-1.15)
[2020-11-12] MEDS: Potassium Chlor 20 meq TAB.ER PO ONE ×2 (21:12→21:22)
[2020-11-12 21:21] LABS: Rapid COVID-19 Molecular Undetected (Undetected)
[2020-11-12] MEDS ORDERED: Albuterol HFA INHALER 8 gm MDI INH PRN (21:21)
[2020-11-12] MEDS ORDERED: Thiamine 100 MG/ML 2 ml VIAL 100 MG, Folic Acid IV 1 MG, Multiple Vitamin IV ADULT 10 M... IV ONE (21:30)
[2020-11-12 21:38] LABS: Amylase 39 U/L (29-103); Lipase 45 U/L (11.0-82.0)
[2020-11-12 21:41] LABS: BNP 40 pg/mL (<=100)
[2020-11-12] MEDS ORDERED: Iohexol 350 (CONTRAST) 500 ML MDV IV ONE (22:07)
[2020-11-12 22:52] LABS: Urine Appearance Clear; Urine Bilirubin Negative (Negative); Urine Blood Negative (Negative); Urine Color Amber; Urine Glucose Negative (Negative); Urine Ketones Negative (Negative); Urine Nitrite Negative (Negative); Urine Protein 2+(100 mg/dL) (Negative); Urine Urobilinogen Positive (Negative)
[2020-11-12 22:55] LABS: Urine Bacteria Absent (Absent); Urine Red Blood Cell 1+(3-5/hpf) (Absent); Urine White Blood Cell Trace(0-5/hpf) (Absent)
[2020-11-13] MEDS: Cholecalciferol (VIT D3) 1,000 unit TAB PO SCH (08:53)
[2020-11-13] MEDS: Potassium Chlor 20 meq TAB.ER PO SCH ×2 (08:54→22:00)
[2020-11-13] MEDS: Mometasone/Formoter 200/5 MDI INH SCH (08:55)
[2020-11-13 09:00] LABS: ABS Eosinophils 0.1 10^3/ul (0-0.6); ABS Monocytes 0.7 10^3/ul (0-0.8); ABS Neutrophils 1.2 10^3/ul (1.5-7.7); Eosinophil % 2.9 %; Hematocrit 35 % (42-52); Hemoglobin 12.5 g/dL (14.0-18.0); Lymphocyte % 33.7 %; Mean Corpuscular HGB Conc 36 g/dL (31-36); Mean Corpuscular Hemoglobin 34 pg (27-31); Mean Corpuscular Volume 94 fL (80-94); Mean Platelet Volume 7.9 fL (7.4-10.4); Platelet Count 68 10^3/uL (150-450); Red Blood Count 3.73 10^6 /uL (4.18-5.48); Red Cell Distribution Width 14 % (10-15)
[2020-11-13] MEDS ORDERED: Multivitamins/Minerals TAB PO SCH (09:00)
[2020-11-13 09:17] LABS: Albumin 3.4 g/dL (3.2-5.2); Albumin/Globulin Ratio 1.1 (1-3); Calcium 8.9 mg/dL (8.6-10.3); Direct Bilirubin 0.8 mg/dL (0.03-0.18); EGFR African American 120.7 (>60); EGFR Non-African American 99.7 (>60); Indirect Bilirubin 2.2 mg/dL (0.3-1.0); Potassium 3.4 mmol/L (3.5-5.0); Total Protein 6.4 g/dL (6.4-8.9)
[2020-11-13] MEDS: Multivitamins/Minerals TAB PO SCH (09:49)
[2020-11-13] MEDS ORDERED: Potassium Chlor 20 meq TAB.ER PO ONE (10:56)
[2020-11-13] MEDS: Ondansetron 4 mg VIAL 2 MG/ML 2 ml VIAL IV PRN (23:41)
[2020-11-14] MEDS: Mometasone/Formoter 200/5 MDI INH SCH ×3 (01:30→19:31)
[2020-11-14] MEDS: Cholecalciferol (VIT D3) 1,000 unit TAB PO SCH (08:18)
[2020-11-14] MEDS: Multivitamins/Minerals TAB PO SCH (08:21)
[2020-11-14] MEDS: Potassium Chlor 20 meq TAB.ER PO SCH ×2 (08:23→21:33)
[2020-11-14 11:49] LABS: ABS Eosinophils 0.3 10^3/ul (0-0.6); ABS Lymphocytes 1.6 10^3/ul (1.0-4.8); ABS Neutrophils 3.7 10^3/ul (1.5-7.7); Eosinophil % 4.6 %; Hematocrit 39 % (42-52); Hemoglobin 13.8 g/dL (14.0-18.0); Lymphocyte % 24.1 %; Mean Corpuscular HGB Conc 36 g/dL (31-36); Mean Corpuscular Hemoglobin 33 pg (27-31); Mean Corpuscular Volume 94 fL (80-94); Mean Platelet Volume 7.8 fL (7.4-10.4); Nucleated Red Blood Cells % 0.1; Platelet Count 105 10^3/uL (150-450); Red Blood Count 4.14 10^6 /uL (4.18-5.48); Red Cell Distribution Width 15 % (10-15); White Blood Count 6.6 10^3/uL (3.5-10.8)
[2020-11-14 12:08] LABS: Albumin 3.7 g/dL (3.2-5.2); Albumin/Globulin Ratio 1.2 (1-3); Calcium 9.4 mg/dL (8.6-10.3); EGFR Non-African American 74.4 (>60); Globulin 3.1 g/dL (2-4); Potassium 3.5 mmol/L (3.5-5.0); Total Bilirubin 3.1 mg/dL (0.2-1.0); Total Protein 6.8 g/dL (6.4-8.9)
[2020-11-14 13:12] LABS: Magnesium 1.7 mg/dL (1.9-2.7)
[2020-11-14] MEDS: SPIRIVA Respimat (tiotropium) 2.5 mcg/inh Inhaler INH SCH (13:24)
[2020-11-14] MEDS ORDERED: Magnesium Sulf 4 GM/100 ML IV 4,000 MG/100 ML BAG IVPB ONE (14:14)
[2020-11-15 07:06] LABS: ABS Eosinophils 0.2 10^3/ul (0-0.6); ABS Lymphocytes 1.8 10^3/ul (1.0-4.8); ABS Monocytes 0.8 10^3/ul (0-0.8); ABS Neutrophils 3.4 10^3/ul (1.5-7.7); Eosinophil % 3.9 %; Hematocrit 39 % (42-52); Hemoglobin 14.1 g/dL (14.0-18.0); Lymphocyte % 28.1 %; Mean Corpuscular HGB Conc 36 g/dL (31-36); Mean Corpuscular Hemoglobin 34 pg (27-31); Mean Corpuscular Volume 94 fL (80-94); Platelet Count 103 10^3/uL (150-450); Red Blood Count 4.19 10^6 /uL (4.18-5.48); Red Cell Distribution Width 14 % (10-15); White Blood Count 6.2 10^3/uL (3.5-10.8)
[2020-11-15] MEDS: Mometasone/Formoter 200/5 MDI INH SCH ×2 (07:07→20:20)
[2020-11-15] MEDS: SPIRIVA Respimat (tiotropium) 2.5 mcg/inh Inhaler INH SCH (07:07)
[2020-11-15 07:12] LABS: Albumin 3.8 g/dL (3.2-5.2); Albumin/Globulin Ratio 1.2 (1-3); EGFR African American 100.8 (>60); EGFR Non-African American 83.3 (>60); Globulin 3.3 g/dL (2-4); Potassium 3.1 mmol/L (3.5-5.0); Total Bilirubin 2.4 mg/dL (0.2-1.0); Total Protein 7.1 g/dL (6.4-8.9)
[2020-11-15] MEDS: Cholecalciferol (VIT D3) 1,000 unit TAB PO SCH (08:33)
[2020-11-15] MEDS: Potassium Chlor 20 meq TAB.ER PO SCH (08:34)
[2020-11-15] MEDS: Multivitamins/Minerals TAB PO SCH (08:34)
[2020-11-15 09:00] LABS: Magnesium 2.1 mg/dL (1.9-2.7)
[2020-11-15] MEDS ORDERED: Potassium Chlor 20 meq TAB.ER PO ONE ×2 (09:00→21:00)
[2020-11-15] MEDS: Ondansetron 4 mg VIAL 2 MG/ML 2 ml VIAL IV PRN (09:08)
[2020-11-15 09:41] LABS: Total Bilirubin 2.8 mg/dL (0.2-1.0)
[2020-11-15] MEDS: Ondansetron ODT 4 mg TAB 4 MG TAB SL SCH ×2 (13:41→20:54)
[2020-11-15] MEDS: Pentoxifylline CR 400 mg TAB 400 MG PO SCH ×2 (15:25→21:31)
[2020-11-16 05:14] LABS: INR 1.86 (0.86-1.15)
[2020-11-16 05:36] LABS: Albumin 3.6 g/dL (3.2-5.2); Albumin/Globulin Ratio 1.2 (1-3); Calcium 8.9 mg/dL (8.6-10.3); Magnesium 2.2 mg/dL (1.9-2.7); Potassium 3.4 mmol/L (3.5-5.0); Total Protein 6.6 g/dL (6.4-8.9)
[2020-11-16] MEDS: Mometasone/Formoter 200/5 MDI INH SCH (08:11)
[2020-11-16] MEDS: SPIRIVA Respimat (tiotropium) 2.5 mcg/inh Inhaler INH SCH (08:11)
[2020-11-16] MEDS ORDERED: Potassium Chlor 20 meq TAB.ER PO SCH (09:00)
[2020-11-16] MEDS: Pentoxifylline CR 400 mg TAB 400 MG PO SCH ×2 (09:28→14:00)
[2020-11-16] MEDS: Multivitamins/Minerals TAB PO SCH (09:29)
[2020-11-16] MEDS: Cholecalciferol (VIT D3) 1,000 unit TAB PO SCH (09:30)
[2020-11-16] MEDS: Ondansetron ODT 4 mg TAB 4 MG TAB SL SCH ×2 (09:30→14:01)
[2020-11-16 11:49] VITALS: BP 102/51
== END 2020-11-16 14:50 | disposition home or self-care (01) | DRG 775 ==
LOC: ED 16:34 → EDHOLD 20:28 → SUATTDRO 20:28 → EDHOLD 11-13 21:34 → MED 11-13 21:41
PROVIDERS: ADMIT Hospitalist; ATTEND Student in an Organized Health Care Education/Training Program

== ENCOUNTER 2021-03-08 16:57 | Inpatient (IN) ==
[2021-03-08] MEDS ORDERED: Thiamine 100 MG/ML 2 ml VIAL (200 mg) IM ONE (18:04)
[2021-03-08] MEDS ORDERED: Lorazepam PYXIS KEY PRN (18:29)
[2021-03-08] MEDS ORDERED: LORazepam 2 mg VIAL 1 ml IV PUSH ONE (18:29)
[2021-03-08 18:41] LABS: Albumin 3.4 g/dL (3.2-5.2); C Reactive Protein 22.53 mg/L (<8.01); Calcium 7.7 mg/dL (8.6-10.3); Globulin 3.4 g/dL (2-4); Magnesium 1.9 mg/dL (1.9-2.7); Total Bilirubin 3.2 mg/dL (0.2-1.0); Total Protein 6.8 g/dL (6.4-8.9); eGFR CKD-EPI 121.2 (>60)
[2021-03-08 18:42] LABS: Troponin I 0.01 ng/mL (<0.03)
[2021-03-08 18:55] LABS: ABS Basophils 0.1 10^3/ul (0-0.2); ABS Eosinophils 0.2 10^3/ul (0-0.6); ABS Lymphocytes 1.3 10^3/ul (1.0-4.8); ABS Monocytes 0.5 10^3/ul (0-0.8); ABS Neutrophils 1.7 10^3/ul (1.5-7.7); Eosinophil % 4.2 %; Hematocrit 40 % (42-52); Hemoglobin 13.3 g/dL (14.0-18.0); Lymphocyte % 35.1 %; Mean Corpuscular HGB Conc 34 g/dL (31-36); Mean Corpuscular Hemoglobin 32 pg (27-31); Mean Corpuscular Volume 95 fL (80-94); Nucleated Red Blood Cells % 0.6; Platelet Count Platelets clumped. 10^3/uL (150-450); Red Blood Count 4.15 10^6 /uL (4.18-5.48); Red Cell Distribution Width 16 % (10-15); White Blood Count 3.6 10^3/uL (3.5-10.8)
[2021-03-08 19:30] LABS: BNP 29 pg/mL (<=100)
[2021-03-08 19:58] LABS: Potassium 3.9 mmol/L (3.5-5.0)
[2021-03-08 20:20] LABS: Urine Appearance Clear; Urine Bilirubin Negative (Negative); Urine Blood Negative (Negative); Urine Color Amber; Urine Glucose Negative (Negative); Urine Ketones Negative (Negative); Urine Nitrite Negative (Negative); Urine Protein Negative (Negative); Urine Specific Gravity 1.012 (1.002-1.030); Urine Urobilinogen Negative (Negative)
[2021-03-08] MEDS ORDERED: Lactulose 30 ml UDC PO ONE (22:15)
[2021-03-09] MEDS ORDERED: Iodixanol (CONTRAST) 320 MG/ML 100 ML SDV IV ONE (01:02)
[2021-03-09 02:30] LABS: Hematocrit 35 % (42-52); INR 1.72 (0.86-1.15); Mean Corpuscular HGB Conc 34 g/dL (31-36); Mean Corpuscular Hemoglobin 33 pg (27-31); Mean Corpuscular Volume 95 fL (80-94); Red Blood Count 3.66 10^6 /uL (4.18-5.48); Red Cell Distribution Width 15 % (10-15); White Blood Count 3.1 10^3/uL (3.5-10.8)
[2021-03-09] MEDS ORDERED: Lorazepam PYXIS KEY PRN ×2 (02:30→05:07)
[2021-03-09] MEDS ORDERED: LORazepam 2 mg VIAL 1 ml ONE (02:39)
[2021-03-09 02:44] LABS: Albumin 3.1 g/dL (3.2-5.2); C Reactive Protein 20.2 mg/L (<8.01); Calcium 7.5 mg/dL (8.6-10.3); Direct Bilirubin 1.3 mg/dL (0.03-0.18); Indirect Bilirubin 1.7 mg/dL (0.3-1.0); Potassium 3.5 mmol/L (3.5-5.0); Total Protein 6.1 g/dL (6.4-8.9); eGFR CKD-EPI 118.8 (>60)
[2021-03-09] MEDS: Albuterol HFA INHALER 8 gm MDI INH PRN ×2 (02:48→13:46)
[2021-03-09] MEDS: Lactulose 30 ml UDC PO SCH ×5 (02:48→22:12)
[2021-03-09 02:49] LABS: Mean Platelet Volume 7.6 fL (7.4-10.4); Platelet Count 52 10^3/uL (150-450)
[2021-03-09] MEDS ORDERED: Ondansetron 4 mg VIAL 2 MG/ML 2 ml VIAL ONE (09:37)
[2021-03-09] MEDS: FLUTICAS/UMECLI/VILANT 200-62.5-25 MDI (NF) INH SCH (09:37)
[2021-03-09] MEDS: LORazepam 2 mg VIAL 1 ml IV PUSH PRN ×2 (09:44→15:42)
[2021-03-09] MEDS: Ondansetron 4 mg VIAL 2 MG/ML 2 ml VIAL IV PRN ×2 (09:45→15:42)
[2021-03-09] MEDS: Multivitamins/Minerals TAB PO SCH (10:45)
[2021-03-10 06:35] LABS: Albumin 3.1 g/dL (3.2-5.2); Calcium 8.4 mg/dL (8.6-10.3); Magnesium 1.5 mg/dL (1.9-2.7); Potassium 3.1 mmol/L (3.5-5.0); Total Bilirubin 5.5 mg/dL (0.2-1.0); Total Protein 6.1 g/dL (6.4-8.9); eGFR CKD-EPI 115.1 (>60)
[2021-03-10 06:44] LABS: Hematocrit 33 % (42-52); Hemoglobin 11.6 g/dL (14.0-18.0); Mean Corpuscular HGB Conc 35 g/dL (31-36); Mean Corpuscular Hemoglobin 33 pg (27-31); Mean Corpuscular Volume 95 fL (80-94); Mean Platelet Volume 8.5 fL (7.4-10.4); Platelet Count 29 10^3/uL (150-450); Red Blood Count 3.51 10^6 /uL (4.18-5.48); Red Cell Distribution Width 15 % (10-15)
[2021-03-10] MEDS ORDERED: Potassium Chlor 10 meq TAB PO ONE (07:07)
[2021-03-10] MEDS ORDERED: Magnesium Sulfate 2 gm BAG 2 GM/50 ML BAG IVPB ONE (07:07)
[2021-03-10] MEDS: Ondansetron 4 mg VIAL 2 MG/ML 2 ml VIAL IV PRN (08:10)
[2021-03-10] MEDS: Lactulose 30 ml UDC PO SCH ×4 (08:13→21:27)
[2021-03-10] MEDS: Multivitamins/Minerals TAB PO SCH (08:13)
[2021-03-10] MEDS: FLUTICAS/UMECLI/VILANT 200-62.5-25 MDI (NF) INH SCH (08:14)
[2021-03-10] MEDS ORDERED: methylPREDNISolone SOD 40 mg/ml 1 ml VIAL IV SCH (09:00)
[2021-03-10] MEDS ORDERED: Pneumococcal Vac 23-Polyvalent IM ONE (09:00)
[2021-03-10] MEDS ORDERED: Flu vaccine *QUAD* 2021-22* 0.5 ML SYRINGE IM ONE (09:00)
[2021-03-10 09:41] LABS: INR 2.16 (0.86-1.15)
[2021-03-10] MEDS: methylPREDNISolone SOD 40 mg/ml 1 ml VIAL IV SCH (10:52)
[2021-03-10] MEDS: Albuterol HFA INHALER 8 gm MDI INH PRN (15:33)
[2021-03-11 05:59] LABS: INR 2.16 (0.86-1.15)
[2021-03-11 06:05] LABS: ABS Lymphocytes 0.4 10^3/ul (1.0-4.8); ABS Monocytes 0.3 10^3/ul (0-0.8); ABS Neutrophils 2.1 10^3/ul (1.5-7.7); Eosinophil % 0.1 %; Hematocrit 35 % (42-52); Mean Corpuscular HGB Conc 34 g/dL (31-36); Mean Corpuscular Hemoglobin 33 pg (27-31); Mean Corpuscular Volume 95 fL (80-94); Mean Platelet Volume 9.1 fL (7.4-10.4); Nucleated Red Blood Cells % 0.1; Platelet Count 37 10^3/uL (150-450); Red Blood Count 3.66 10^6 /uL (4.18-5.48); Red Cell Distribution Width 15 % (10-15); White Blood Count 2.8 10^3/uL (3.5-10.8)
[2021-03-11 06:11] LABS: Albumin 3.2 g/dL (3.2-5.2); Calcium 8.6 mg/dL (8.6-10.3); Globulin 3.2 g/dL (2-4); Potassium 3.3 mmol/L (3.5-5.0); Total Bilirubin 4.9 mg/dL (0.2-1.0); Total Protein 6.4 g/dL (6.4-8.9); eGFR CKD-EPI 116.1 (>60)
[2021-03-11] MEDS ORDERED: Potassium Chlor 20 meq TAB.ER PO ONE (07:00)
[2021-03-11 07:16] LABS: Magnesium 1.8 mg/dL (1.9-2.7)
[2021-03-11] MEDS: methylPREDNISolone SOD 40 mg/ml 1 ml VIAL IV SCH (08:48)
[2021-03-11] MEDS: Multivitamins/Minerals TAB PO SCH (08:49)
[2021-03-11] MEDS: Lactulose 30 ml UDC PO SCH ×4 (09:03→21:15)
[2021-03-11] MEDS: FLUTICAS/UMECLI/VILANT 200-62.5-25 MDI (NF) INH SCH (09:08)
[2021-03-11 12:20] LABS: Hematocrit 35 % (42-52)
[2021-03-11] MEDS: Albuterol HFA INHALER 8 gm MDI INH PRN (17:02)
[2021-03-11] MEDS ORDERED: Butalb/Acetamin/Caff TAB 325-50-40MG PO ONE (20:24)
[2021-03-11 23:55] LABS: Hematocrit 36 % (42-52); Hemoglobin 12.1 g/dL (14.0-18.0)
[2021-03-12 06:14] LABS: Hematocrit 34 % (42-52); Hemoglobin 11.7 g/dL (14.0-18.0); Mean Corpuscular HGB Conc 35 g/dL (31-36); Mean Corpuscular Hemoglobin 33 pg (27-31); Mean Corpuscular Volume 95 fL (80-94); Mean Platelet Volume 9.4 fL (7.4-10.4); Platelet Count 47 10^3/uL (150-450); Red Blood Count 3.55 10^6 /uL (4.18-5.48); Red Cell Distribution Width 15 % (10-15); White Blood Count 4.2 10^3/uL (3.5-10.8)
[2021-03-12 06:20] LABS: Albumin 3.1 g/dL (3.2-5.2); Calcium 8.3 mg/dL (8.6-10.3); Globulin 3.2 g/dL (2-4); Magnesium 1.8 mg/dL (1.9-2.7); Potassium 3.1 mmol/L (3.5-5.0); Total Bilirubin 3.5 mg/dL (0.2-1.0); Total Protein 6.3 g/dL (6.4-8.9); eGFR CKD-EPI 115.1 (>60)
[2021-03-12] MEDS: FLUTICAS/UMECLI/VILANT 200-62.5-25 MDI (NF) INH SCH (07:09)
[2021-03-12] MEDS ORDERED: Magnesium Sulfate 2 gm BAG 2 GM/50 ML BAG IVPB ONE (08:22)
[2021-03-12] MEDS ORDERED: Potassium Chlor 20 meq TAB.ER PO ONE (08:23)
[2021-03-12] MEDS: Lactulose 30 ml UDC PO SCH ×3 (08:49→20:24)
[2021-03-12] MEDS: methylPREDNISolone SOD 40 mg/ml 1 ml VIAL IV SCH (09:05)
[2021-03-12] MEDS: Multivitamins/Minerals TAB PO SCH (09:06)
[2021-03-12] MEDS: Albuterol HFA INHALER 8 gm MDI INH PRN (20:50)
[2021-03-13 06:34] LABS: Hematocrit 34 % (42-52); Hemoglobin 11.7 g/dL (14.0-18.0); Mean Corpuscular HGB Conc 34 g/dL (31-36); Mean Corpuscular Hemoglobin 33 pg (27-31); Mean Corpuscular Volume 97 fL (80-94); Mean Platelet Volume 9.1 fL (7.4-10.4); Platelet Count 40 10^3/uL (150-450); Red Blood Count 3.53 10^6 /uL (4.18-5.48); Red Cell Distribution Width 16 % (10-15); White Blood Count 4.3 10^3/uL (3.5-10.8)
[2021-03-13 06:35] LABS: Calcium 8.2 mg/dL (8.6-10.3); Globulin 2.9 g/dL (2-4); Total Bilirubin 2.7 mg/dL (0.2-1.0); Total Protein 5.9 g/dL (6.4-8.9); eGFR CKD-EPI 120.6 (>60)
[2021-03-13] MEDS: FLUTICAS/UMECLI/VILANT 200-62.5-25 MDI (NF) INH SCH (07:15)
[2021-03-13] MEDS: methylPREDNISolone SOD 40 mg/ml 1 ml VIAL IV SCH (08:11)
[2021-03-13] MEDS: KCL 20 MEQ/100 ML IVPREMIX 20 MEQ/100 ML BAG IV SCH ×2 (08:19→17:01)
[2021-03-13] MEDS: Multivitamins/Minerals TAB PO SCH (08:22)
[2021-03-13] MEDS: Lactulose 30 ml UDC PO SCH ×3 (08:25→21:16)
[2021-03-13] MEDS ORDERED: Dextran 70/Hypromellose Tears Eye Drops 15 ml BTL (for Artificials Tears) BOTH EYES PRN (12:44)
[2021-03-13] MEDS: LORazepam 2 mg VIAL 1 ml IV PUSH SCH (12:52)
[2021-03-13] MEDS ORDERED: Albuterol/Ipratropium NEB.SOL (2.5/0.5 MG) 3 ML NEB.SOLN INH PRN (13:40)
[2021-03-13 15:54] LABS: Calcium 8.2 mg/dL (8.6-10.3); Potassium 3.7 mmol/L (3.5-5.0); eGFR CKD-EPI 113.2 (>60)
[2021-03-14 05:38] LABS: ABS Lymphocytes 0.7 10^3/ul (1.0-4.8); ABS Monocytes 0.5 10^3/ul (0-0.8); Eosinophil % 0.5 %; Hematocrit 33 % (42-52); Hemoglobin 11.4 g/dL (14.0-18.0); Lymphocyte % 16.9 %; Mean Corpuscular HGB Conc 35 g/dL (31-36); Mean Corpuscular Hemoglobin 33 pg (27-31); Mean Corpuscular Volume 96 fL (80-94); Mean Platelet Volume 9.2 fL (7.4-10.4); Platelet Count 40 10^3/uL (150-450); Red Blood Count 3.45 10^6 /uL (4.18-5.48); Red Cell Distribution Width 15 % (10-15); White Blood Count 4.2 10^3/uL (3.5-10.8)
[2021-03-14 05:51] LABS: Calcium 8.2 mg/dL (8.6-10.3); Magnesium 2.1 mg/dL (1.9-2.7); Potassium 3.3 mmol/L (3.5-5.0); Total Bilirubin 2.7 mg/dL (0.2-1.0); eGFR CKD-EPI 118.2 (>60)
[2021-03-14] MEDS ORDERED: Potassium Chlor 10 meq TAB PO ONE (06:52)
[2021-03-14] MEDS: FLUTICAS/UMECLI/VILANT 200-62.5-25 MDI (NF) INH SCH (08:17)
[2021-03-14] MEDS: methylPREDNISolone SOD 40 mg/ml 1 ml VIAL IV SCH (09:02)
[2021-03-14] MEDS: Multivitamins/Minerals TAB PO SCH (09:03)
[2021-03-14] MEDS: Lactulose 30 ml UDC PO SCH ×3 (09:03→20:40)
[2021-03-14] MEDS: Albuterol HFA INHALER 8 gm MDI INH PRN (15:37)
[2021-03-14] MEDS: Ondansetron 4 mg VIAL 2 MG/ML 2 ml VIAL IV PRN (15:43)
[2021-03-14] MEDS ORDERED: Lorazepam PYXIS KEY ONE (17:32)
[2021-03-14] MEDS: LORazepam 2 mg VIAL 1 ml IV PUSH SCH (17:35)
[2021-03-15 05:56] LABS: Hematocrit 34 % (42-52); Hemoglobin 11.5 g/dL (14.0-18.0); Mean Corpuscular HGB Conc 34 g/dL (31-36); Mean Corpuscular Hemoglobin 32 pg (27-31); Mean Corpuscular Volume 96 fL (80-94); Mean Platelet Volume 9.2 fL (7.4-10.4); Platelet Count 43 10^3/uL (150-450); Red Blood Count 3.55 10^6 /uL (4.18-5.48); Red Cell Distribution Width 16 % (10-15); White Blood Count 4.1 10^3/uL (3.5-10.8)
[2021-03-15 05:59] LABS: INR 1.93 (0.86-1.15)
[2021-03-15 06:12] LABS: Calcium 8.2 mg/dL (8.6-10.3); Globulin 2.9 g/dL (2-4); Magnesium 2.1 mg/dL (1.9-2.7); Potassium 3.5 mmol/L (3.5-5.0); Total Bilirubin 2.7 mg/dL (0.2-1.0); Total Protein 5.9 g/dL (6.4-8.9); eGFR CKD-EPI 117.1 (>60)
[2021-03-15 07:24] VITALS: BP 115/62
[2021-03-15] MEDS: Lactulose 30 ml UDC PO SCH (07:31)
[2021-03-15] MEDS: methylPREDNISolone SOD 40 mg/ml 1 ml VIAL IV SCH (07:31)
[2021-03-15] MEDS: Multivitamins/Minerals TAB PO SCH (07:32)
[2021-03-15] MEDS: FLUTICAS/UMECLI/VILANT 200-62.5-25 MDI (NF) INH SCH (08:42)
== END 2021-03-15 15:45 | disposition home or self-care (01) | DRG 279 ==
LOC: ED 16:57 → SUATTDRO 21:06 → EDHOLD 03-09 03:56 → MED 03-09 09:31 → MEDTELE 03-11 04:51
PROVIDERS: ADMIT Internal Medicine; ATTEND Hospitalist

== ENCOUNTER 2021-06-15 09:54 | Inpatient (IN) ==
[2021-06-15] MEDS ORDERED: NS 0.9% 1000 ml BAG 1,000 ML IV ONE (13:39)
[2021-06-15 15:58] LABS: INR 2.51 (0.86-1.15)
[2021-06-15 16:00] LABS: Albumin 2.5 g/dL (3.2-5.2); Albumin/Globulin Ratio 0.8 (1-3); C Reactive Protein 61.47 mg/L (<8.01); Calcium 7.5 mg/dL (8.6-10.3); Direct Bilirubin 4.4 mg/dL (0.03-0.18); Globulin 3.1 g/dL (2-4); Total Protein 5.6 g/dL (6.4-8.9); eGFR CKD-EPI 120.4 (>60)
[2021-06-15 16:19] LABS: Indirect Bilirubin 8.7 mg/dL (0.3-1.0); Potassium 2.2 mmol/L (3.5-5.0); Total Bilirubin 13.1 mg/dL (0.2-1.0)
[2021-06-15] MEDS ORDERED: Magnesium Sulfate 2 gm BAG 2 GM/50 ML BAG IVPB ONE (16:32)
[2021-06-15 16:37] LABS: Hematocrit 30 % (42-52); Hemoglobin 10.4 g/dL (14.0-18.0); Mean Corpuscular HGB Conc 35 g/dL (31-36); Mean Corpuscular Hemoglobin 32 pg (27-31); Mean Corpuscular Volume 92 fL (80-94); Red Blood Count 3.28 10^6 /uL (4.18-5.48); Red Cell Distribution Width 24 % (10-15); White Blood Count 11.6 10^3/uL (3.5-10.8)
[2021-06-15] MEDS: KCL 20 MEQ/100 ML IVPREMIX 20 MEQ/100 ML BAG IV SCH ×3 (16:50→23:02)
[2021-06-15] MEDS ORDERED: Potassium Chlor 20 meq TAB.ER PO ONE ×2 (17:34→20:11)
[2021-06-15 18:15] LABS: ABS Basophils 0.1 10^3/ul (0-0.2); ABS Lymphocytes 1.3 10^3/ul (1.0-4.8); ABS Monocytes 1.2 10^3/ul (0-0.8); Eosinophil % 0.4 %; Lymphocyte % 11.5 %; Platelet Count Platelets clumped. 10^3/uL (150-450)
[2021-06-15 18:16] LABS: Magnesium 1.8 mg/dL (1.9-2.7)
[2021-06-15] MEDS: Lactulose 30 ml UDC PO SCH (19:00)
[2021-06-15] MEDS ORDERED: Thiamine 100 MG/ML 2 ml VIAL (200 mg) IM ONE (19:40)
[2021-06-15 19:53] LABS: Phosphorus 2.6 mg/dL (2.5-5.0)
[2021-06-15 21:10] LABS: Urine Creatinine Concentration 140.42 mg/dL; Urine Sodium Concentration < 18 mmol/L
[2021-06-15 21:52] LABS: Hematocrit 28 % (42-52); Hemoglobin 9.6 g/dL (14.0-18.0); Mean Corpuscular HGB Conc 34 g/dL (31-36); Mean Corpuscular Hemoglobin 32 pg (27-31); Mean Corpuscular Volume 93 fL (80-94); Mean Platelet Volume 8.3 fL (7.4-10.4); Platelet Count 63 10^3/uL (150-450); Red Blood Count 3.01 10^6 /uL (4.18-5.48); Red Cell Distribution Width 23 % (10-15); White Blood Count 11.8 10^3/uL (3.5-10.8)
[2021-06-15 22:07] LABS: Urine Osmo 506 mOsm/kg (150-1150)
[2021-06-15 22:08] LABS: Osmolality Serum 246 mOsm/kg (275-295)
[2021-06-15 22:09] LABS: Calcium 7.6 mg/dL (8.6-10.3); eGFR CKD-EPI 119.2 (>60)
[2021-06-15 22:13] LABS: Potassium 2.4 mmol/L (3.5-5.0)
[2021-06-15] MEDS ORDERED: Potassium Chloride LIQUID 20 MEQ/15 ML LIQUID PO ONE (22:33)
[2021-06-15] MEDS: Lidocaine PATCH 5% PATCH TRANSDERM SCH (22:43)
[2021-06-15] MEDS ORDERED: fentaNYL 100 mcg/2 ml 50 MCG/ML VIAL IV SLOW PU ONE (23:26)
[2021-06-15] MEDS ORDERED: Thiamine 100 MG/ML 2 ml VIAL 100 MG in NS 0.9% 50 ML 50 ML IV SCH (23:45)
[2021-06-16] MEDS: cefTRIAXone 1 gm/50 mL D5W 1 GM/50 ML BAG IV SCH ×2 (01:55→21:04)
[2021-06-16 01:58] LABS: Calcium 7.1 mg/dL (8.6-10.3); Potassium 2.9 mmol/L (3.5-5.0); eGFR CKD-EPI 112.9 (>60)
[2021-06-16] MEDS: KCL 20 MEQ/100 ML IVPREMIX 20 MEQ/100 ML BAG IV SCH ×4 (02:15→21:28)
[2021-06-16] MEDS: Albuterol HFA INHALER 8 gm MDI INH PRN ×2 (02:31→09:14)
[2021-06-16 06:06] LABS: Calcium 7.1 mg/dL (8.6-10.3); eGFR CKD-EPI 114.4 (>60)
[2021-06-16 06:15] LABS: Potassium 2.7 mmol/L (3.5-5.0)
[2021-06-16] MEDS ORDERED: Potassium Chloride LIQUID 20 MEQ/15 ML LIQUID PO ONE (06:34)
[2021-06-16] MEDS: Lactulose 30 ml UDC PO SCH ×5 (08:31→21:03)
[2021-06-16] MEDS: Multivitamins/Minerals TAB PO SCH (08:33)
[2021-06-16] MEDS: fentaNYL 100 mcg/2 ml 50 MCG/ML VIAL IV SLOW PU PRN ×2 (08:40→12:41)
[2021-06-16 11:03] LABS: Calcium 7.1 mg/dL (8.6-10.3); Potassium 3.1 mmol/L (3.5-5.0); eGFR CKD-EPI 113.9 (>60)
[2021-06-16 11:09] LABS: Protime (Maddrey) 29.7 seconds (9.5-12.8)
[2021-06-16 11:15] LABS: Total Bilirubin 13.9 mg/dL (0.2-1.0)
[2021-06-16 11:23] LABS: Ferritin 101.1 ng/mL (24-336)
[2021-06-16] MEDS: Ondansetron 4 mg VIAL 2 MG/ML 2 ml VIAL IV PRN (11:58)
[2021-06-16] MEDS ORDERED: KCL 20 MEQ/100 ML IVPREMIX 20 MEQ/100 ML BAG IV ONE (12:06)
[2021-06-16 14:15] LABS: eGFR CKD-EPI 111.6 (>60)
[2021-06-16 15:28] LABS: Body Fluid Appearance Clear; Body Fluid Color Yellow; Body Fluid Source Peritonial Fluid
[2021-06-16 15:54] LABS: Body Fluid WBC 408 /mcL
[2021-06-16] MEDS: Pentoxifylline CR 400 mg TAB 400 MG PO SCH ×2 (16:02→21:02)
[2021-06-16 16:19] LABS: INR 2.65 (0.86-1.15)
[2021-06-16 16:36] LABS: Body Fluid Mono 30 %; Body Fluid Other Cells 3; Body Fluid Total Cells Counted 200
[2021-06-16] MEDS ORDERED: Lorazepam PYXIS KEY PRN (17:50)
[2021-06-16 18:15] LABS: Calcium 7.3 mg/dL (8.6-10.3); Potassium 3.2 mmol/L (3.5-5.0); eGFR CKD-EPI 110.3 (>60)
[2021-06-16 22:32] LABS: Calcium 7.1 mg/dL (8.6-10.3); eGFR CKD-EPI 110.7 (>60)
[2021-06-16] MEDS ORDERED: Potassium Chlor 20 meq TAB.ER PO ONE (23:00)
[2021-06-16] MEDS: Albumin Human 25% 25 GM/100 ML BTL IV SCH (23:59)
[2021-06-17] MEDS: Albumin Human 25% 25 GM/100 ML BTL IV SCH ×3 (00:55→21:08)
[2021-06-17] MEDS: fentaNYL 100 mcg/2 ml 50 MCG/ML VIAL IV SLOW PU PRN ×4 (00:55→18:36)
[2021-06-17] MEDS ORDERED: fentaNYL 100 mcg/2 ml 50 MCG/ML VIAL IV SLOW PU ONE (02:57)
[2021-06-17 05:16] LABS: INR 2.84 (0.86-1.15)
[2021-06-17 05:17] LABS: Hematocrit 25 % (42-52); Hemoglobin 8.5 g/dL (14.0-18.0); Mean Corpuscular HGB Conc 34 g/dL (31-36); Mean Corpuscular Hemoglobin 32 pg (27-31); Mean Corpuscular Volume 92 fL (80-94); Mean Platelet Volume 8.2 fL (7.4-10.4); Platelet Count 66 10^3/uL (150-450); Red Blood Count 2.71 10^6 /uL (4.18-5.48); Red Cell Distribution Width 23 % (10-15); White Blood Count 9.3 10^3/uL (3.5-10.8)
[2021-06-17] MEDS: LORazepam 2 mg VIAL 1 ml IV PUSH PRN ×3 (05:39→21:48)
[2021-06-17 05:43] LABS: Calcium 7.4 mg/dL (8.6-10.3); eGFR CKD-EPI 111.6 (>60)
[2021-06-17 07:48] LABS: ABS Eosinophils 0.1 10^3/ul (0-0.6); ABS Lymphocytes 1.6 10^3/ul (1.0-4.8); ABS Monocytes 0.8 10^3/ul (0-0.8); ABS Neutrophils 6.7 10^3/ul (1.5-7.7); Anisocytosis 2+; Eosinophil % 1.5 %; Lymphocyte % 16.8 %
[2021-06-17] MEDS: Lactulose 30 ml UDC PO SCH ×3 (08:15→21:07)
[2021-06-17] MEDS: Lidocaine PATCH 5% PATCH TRANSDERM SCH (08:15)
[2021-06-17] MEDS: Multivitamins/Minerals TAB PO SCH (08:17)
[2021-06-17] MEDS: Pentoxifylline CR 400 mg TAB 400 MG PO SCH ×3 (08:23→21:33)
[2021-06-17] MEDS: Albuterol HFA INHALER 8 gm MDI INH PRN (08:45)
[2021-06-17 10:42] LABS: Lactate Dehydrogenase, BF 45 U/L
[2021-06-17 12:20] LABS: Alpha 1 Antitrypsin A1A 233 mg/dL (100 - 190)
[2021-06-17] MEDS: Ondansetron 4 mg VIAL 2 MG/ML 2 ml VIAL IV PRN (12:57)
[2021-06-17 14:12] LABS: Glucose, BF 137 mg/dL
[2021-06-17 14:19] LABS: Fluid Type, Protein, Total PERITONEAL; Total Protein, BF 0.7 g/dL
[2021-06-17] MEDS: FLUTICAS/UMECLI/VILANT 200-62.5-25 MDI (NF) INH SCH (14:30)
[2021-06-17] MEDS: cefTRIAXone 1 gm/50 mL D5W 1 GM/50 ML BAG IV SCH (21:31)
[2021-06-18] MEDS: fentaNYL 100 mcg/2 ml 50 MCG/ML VIAL IV SLOW PU PRN ×2 (00:11→15:06)
[2021-06-18 04:53] LABS: ABS Eosinophils 0.1 10^3/ul (0-0.6); ABS Lymphocytes 1.2 10^3/ul (1.0-4.8); ABS Monocytes 0.8 10^3/ul (0-0.8); ABS Neutrophils 5.7 10^3/ul (1.5-7.7); Eosinophil % 1.4 %; Hematocrit 22 % (42-52); Hemoglobin 7.5 g/dL (14.0-18.0); Mean Corpuscular HGB Conc 35 g/dL (31-36); Mean Corpuscular Hemoglobin 32 pg (27-31); Mean Corpuscular Volume 93 fL (80-94); Mean Platelet Volume 7.6 fL (7.4-10.4); Platelet Count 54 10^3/uL (150-450); Red Blood Count 2.34 10^6 /uL (4.18-5.48); Red Cell Distribution Width 24 % (10-15); White Blood Count 7.8 10^3/uL (3.5-10.8)
[2021-06-18 04:58] LABS: INR 3.02 (0.86-1.15)
[2021-06-18 05:11] LABS: Calcium 7.7 mg/dL (8.6-10.3); Potassium 2.8 mmol/L (3.5-5.0); eGFR CKD-EPI 108.2 (>60)
[2021-06-18] MEDS: Lidocaine PATCH 5% PATCH TRANSDERM SCH ×2 (08:36→08:59)
[2021-06-18] MEDS: Pentoxifylline CR 400 mg TAB 400 MG PO SCH ×3 (08:37→21:12)
[2021-06-18] MEDS: Lactulose 30 ml UDC PO SCH ×3 (08:37→21:11)
[2021-06-18] MEDS: Multivitamins/Minerals TAB PO SCH (08:41)
[2021-06-18] MEDS: Albumin Human 25% 25 GM/100 ML BTL IV SCH ×2 (08:41→21:11)
[2021-06-18] MEDS: FLUTICAS/UMECLI/VILANT 200-62.5-25 MDI (NF) INH SCH (11:14)
[2021-06-18] MEDS: LORazepam 2 mg VIAL 1 ml IV PUSH PRN (13:13)
[2021-06-18 13:47] LABS: Mitochondria M2 Antibody <0.1 U
[2021-06-18] MEDS: Albuterol HFA INHALER 8 gm MDI INH PRN (15:16)
[2021-06-18 19:28] LABS: Magnesium 1.4 mg/dL (1.9-2.7)
[2021-06-18] MEDS: KCL 20 MEQ/100 ML IVPREMIX 20 MEQ/100 ML BAG IV SCH ×2 (19:45→22:10)
[2021-06-18] MEDS: cefTRIAXone 1 gm/50 mL D5W 1 GM/50 ML BAG IV SCH (22:14)
[2021-06-19] MEDS: KCL 20 MEQ/100 ML IVPREMIX 20 MEQ/100 ML BAG IV SCH (00:25)
[2021-06-19] MEDS: Furosemide 100 mg/10 ml IV 100 MG in NS 0.9% 100 ml BAG 90 ML IV SCH ×5 (02:49→22:51)
[2021-06-19 04:11] LABS: ABS Basophils 0.1 10^3/ul (0-0.2); ABS Eosinophils 0.1 10^3/ul (0-0.6); ABS Lymphocytes 1.5 10^3/ul (1.0-4.8); ABS Monocytes 0.8 10^3/ul (0-0.8); ABS Neutrophils 5.2 10^3/ul (1.5-7.7); Eosinophil % 1.3 %; Hematocrit 27 % (42-52); Hemoglobin 9.1 g/dL (14.0-18.0); Lymphocyte % 19.3 %; Mean Corpuscular HGB Conc 34 g/dL (31-36); Mean Corpuscular Hemoglobin 32 pg (27-31); Mean Corpuscular Volume 94 fL (80-94); Mean Platelet Volume 7.6 fL (7.4-10.4); Nucleated Red Blood Cells % 0.1; Platelet Count 64 10^3/uL (150-450); Red Blood Count 2.83 10^6 /uL (4.18-5.48); Red Cell Distribution Width 24 % (10-15); White Blood Count 7.6 10^3/uL (3.5-10.8)
[2021-06-19 04:14] LABS: INR 2.99 (0.86-1.15)
[2021-06-19 04:48] LABS: Calcium 8.2 mg/dL (8.6-10.3); Potassium 3.2 mmol/L (3.5-5.0); eGFR CKD-EPI 108.2 (>60)
[2021-06-19] MEDS ORDERED: Potassium Chlor 20 meq TAB.ER PO ONE (04:54)
[2021-06-19] MEDS ORDERED: Magnesium Sulfate 2 gm BAG 2 GM/50 ML BAG IVPB ONE (06:28)
[2021-06-19 07:02] LABS: Magnesium 1.5 mg/dL (1.9-2.7)
[2021-06-19] MEDS: Lidocaine PATCH 5% PATCH TRANSDERM SCH (09:21)
[2021-06-19] MEDS: Multivitamins/Minerals TAB PO SCH (09:24)
[2021-06-19] MEDS: Pentoxifylline CR 400 mg TAB 400 MG PO SCH ×3 (09:25→21:14)
[2021-06-19] MEDS: Potassium Chloride LIQUID 20 MEQ/15 ML LIQUID PO SCH ×2 (09:25→21:10)
[2021-06-19] MEDS: Lactulose 30 ml UDC PO SCH ×3 (09:25→21:15)
[2021-06-19] MEDS: FLUTICAS/UMECLI/VILANT 200-62.5-25 MDI (NF) INH SCH (13:42)
[2021-06-19 14:13] LABS: Calcium 8.4 mg/dL (8.6-10.3); Potassium 3.3 mmol/L (3.5-5.0); eGFR CKD-EPI 107.5 (>60)
[2021-06-19 14:14] LABS: Magnesium 1.9 mg/dL (1.9-2.7)
[2021-06-19] MEDS: LORazepam 2 mg VIAL 1 ml IV PUSH PRN (14:51)
[2021-06-19] MEDS: Albumin Human 25% 25 GM/100 ML BTL IV SCH ×2 (15:00→21:38)
[2021-06-19 17:31] LABS: Calcium 8.2 mg/dL (8.6-10.3); Potassium 3.2 mmol/L (3.5-5.0); eGFR CKD-EPI 107.5 (>60)
[2021-06-19] MEDS: Ondansetron 4 mg VIAL 2 MG/ML 2 ml VIAL IV PRN (21:25)
[2021-06-19 21:29] LABS: Calcium 8.4 mg/dL (8.6-10.3); Potassium 3.2 mmol/L (3.5-5.0); eGFR CKD-EPI 106.4 (>60)
[2021-06-19] MEDS: Albuterol HFA INHALER 8 gm MDI INH PRN (22:08)
[2021-06-19] MEDS: cefTRIAXone 1 gm/50 mL D5W 1 GM/50 ML BAG IV SCH (22:53)
[2021-06-20] MEDS: Potassium Chloride LIQUID 20 MEQ/15 ML LIQUID PO SCH ×3 (00:18→21:49)
[2021-06-20] MEDS: Lactulose 30 ml UDC PO SCH ×4 (00:18→21:49)
[2021-06-20] MEDS: LORazepam 2 mg VIAL 1 ml IV PUSH PRN (00:41)
[2021-06-20 06:39] LABS: ABS Eosinophils 0.1 10^3/ul (0-0.6); ABS Lymphocytes 1.5 10^3/ul (1.0-4.8); ABS Monocytes 0.8 10^3/ul (0-0.8); Eosinophil % 1.8 %; Hematocrit 25 % (42-52); Hemoglobin 8.7 g/dL (14.0-18.0); Lymphocyte % 19.6 %; Mean Corpuscular HGB Conc 35 g/dL (31-36); Mean Corpuscular Hemoglobin 33 pg (27-31); Mean Corpuscular Volume 94 fL (80-94); Mean Platelet Volume 7.8 fL (7.4-10.4); Nucleated Red Blood Cells % 0.1; Platelet Count 60 10^3/uL (150-450); Red Blood Count 2.66 10^6 /uL (4.18-5.48); Red Cell Distribution Width 24 % (10-15); White Blood Count 7.4 10^3/uL (3.5-10.8)
[2021-06-20 06:41] LABS: Calcium 8.3 mg/dL (8.6-10.3); Potassium 3.2 mmol/L (3.5-5.0); eGFR CKD-EPI 107.9 (>60)
[2021-06-20] MEDS ORDERED: Potassium Chlor 20 meq TAB.ER PO ONE (07:53)
[2021-06-20] MEDS: Pentoxifylline CR 400 mg TAB 400 MG PO SCH ×3 (10:17→21:50)
[2021-06-20] MEDS: Multivitamins/Minerals TAB PO SCH (10:17)
[2021-06-20] MEDS: Lidocaine PATCH 5% PATCH TRANSDERM SCH (10:23)
[2021-06-20] MEDS: FLUTICAS/UMECLI/VILANT 200-62.5-25 MDI (NF) INH SCH (10:36)
[2021-06-20] MEDS: Furosemide 100 mg/10 ml IV 100 MG in NS 0.9% 100 ml BAG 90 ML IV SCH ×3 (11:55→21:39)
[2021-06-20] MEDS: Albumin Human 25% 25 GM/100 ML BTL IV SCH (12:57)
[2021-06-20] MEDS ORDERED: Iohexol 300 (CONTRAST) 10 ML SDV IV ONE (16:45)
[2021-06-20 17:36] LABS: Calcium 8.7 mg/dL (8.6-10.3); Potassium 3.3 mmol/L (3.5-5.0); eGFR CKD-EPI 109.8 (>60)
[2021-06-20 17:40] LABS: Magnesium 1.7 mg/dL (1.9-2.7)
[2021-06-20] MEDS ORDERED: Magnesium Sulf 4 GM/100 ML IV 4,000 MG/100 ML BAG IVPB ONE (19:30)
[2021-06-20] MEDS: cefTRIAXone 1 gm/50 mL D5W 1 GM/50 ML BAG IV SCH (22:05)
[2021-06-20] MEDS: Albuterol HFA INHALER 8 gm MDI INH PRN (22:19)
[2021-06-21] MEDS: Albumin Human 25% 25 GM/100 ML BTL IV SCH ×3 (00:12→22:07)
[2021-06-21] MEDS: KCL 20 MEQ/100 ML IVPREMIX 20 MEQ/100 ML BAG IV SCH ×4 (01:43→14:43)
[2021-06-21] MEDS: Potassium Chlor 20 meq TAB.ER PO SCH ×3 (04:24→06:40)
[2021-06-21 06:00] LABS: ABS Basophils 0.1 10^3/ul (0-0.2); ABS Eosinophils 0.1 10^3/ul (0-0.6); ABS Lymphocytes 1.3 10^3/ul (1.0-4.8); ABS Monocytes 0.7 10^3/ul (0-0.8); ABS Neutrophils 4.4 10^3/ul (1.5-7.7); Eosinophil % 1.4 %; Hematocrit 25 % (42-52); Hemoglobin 8.5 g/dL (14.0-18.0); Lymphocyte % 19.9 %; Mean Corpuscular HGB Conc 35 g/dL (31-36); Mean Corpuscular Hemoglobin 33 pg (27-31); Mean Corpuscular Volume 96 fL (80-94); Nucleated Red Blood Cells % 0.1; Platelet Count 57 10^3/uL (150-450); Red Blood Count 2.58 10^6 /uL (4.18-5.48); Red Cell Distribution Width 25 % (10-15); White Blood Count 6.5 10^3/uL (3.5-10.8)
[2021-06-21 06:18] LABS: Albumin 3.6 g/dL (3.2-5.2); Albumin/Globulin Ratio 1.4 (1-3); Calcium 8.6 mg/dL (8.6-10.3); Globulin 2.6 g/dL (2-4); Phosphorus 3.1 mg/dL (2.5-5.0); Potassium 3.4 mmol/L (3.5-5.0); Total Protein 6.2 g/dL (6.4-8.9); eGFR CKD-EPI 108.6 (>60)
[2021-06-21 06:19] LABS: Magnesium 2.2 mg/dL (1.9-2.7)
[2021-06-21] MEDS ORDERED: Potassium Chlor 20 meq TAB.ER PO ONE (06:23)
[2021-06-21] MEDS: FLUTICAS/UMECLI/VILANT 200-62.5-25 MDI (NF) INH SCH (08:13)
[2021-06-21] MEDS: Furosemide 100 mg/10 ml IV 100 MG in NS 0.9% 100 ml BAG 90 ML IV SCH ×2 (08:27→17:46)
[2021-06-21] MEDS: Lidocaine PATCH 5% PATCH TRANSDERM SCH (10:19)
[2021-06-21] MEDS: Multivitamins/Minerals TAB PO SCH ×2 (11:11→12:04)
[2021-06-21] MEDS: Lactulose 30 ml UDC PO SCH ×3 (12:01→22:02)
[2021-06-21] MEDS: Potassium Chloride LIQUID 20 MEQ/15 ML LIQUID PO SCH ×2 (12:01→22:04)
[2021-06-21] MEDS: Pentoxifylline CR 400 mg TAB 400 MG PO SCH ×3 (12:05→22:01)
[2021-06-21] MEDS: LORazepam 2 mg VIAL 1 ml IV PUSH PRN (23:46)
[2021-06-22] MEDS: Furosemide 100 mg/10 ml IV 100 MG in NS 0.9% 100 ml BAG 90 ML IV SCH ×2 (04:02→15:23)
[2021-06-22 06:31] LABS: Hematocrit 24 % (42-52); Hemoglobin 8.2 g/dL (14.0-18.0); Mean Corpuscular HGB Conc 35 g/dL (31-36); Mean Corpuscular Hemoglobin 34 pg (27-31); Mean Corpuscular Volume 96 fL (80-94); Mean Platelet Volume 7.5 fL (7.4-10.4); Platelet Count 50 10^3/uL (150-450); Red Blood Count 2.45 10^6 /uL (4.18-5.48); Red Cell Distribution Width 25 % (10-15); White Blood Count 6.1 10^3/uL (3.5-10.8)
[2021-06-22 06:39] LABS: Calcium 8.7 mg/dL (8.6-10.3); Potassium 3.5 mmol/L (3.5-5.0); eGFR CKD-EPI 111.1 (>60)
[2021-06-22 06:55] LABS: Magnesium 1.7 mg/dL (1.9-2.7)
[2021-06-22] MEDS: FLUTICAS/UMECLI/VILANT 200-62.5-25 MDI (NF) INH SCH (07:08)
[2021-06-22] MEDS: Pentoxifylline CR 400 mg TAB 400 MG PO SCH ×3 (10:33→21:20)
[2021-06-22] MEDS: Multivitamins/Minerals TAB PO SCH (10:33)
[2021-06-22] MEDS: Potassium Chloride LIQUID 20 MEQ/15 ML LIQUID PO SCH ×2 (10:40→21:19)
[2021-06-22] MEDS: Lactulose 30 ml UDC PO SCH ×3 (10:41→21:18)
[2021-06-22] MEDS: Lidocaine PATCH 5% PATCH TRANSDERM SCH (10:46)
[2021-06-22] MEDS ORDERED: Magnesium Sulfate 2 gm BAG 2 GM/50 ML BAG IVPB ONE (11:26)
[2021-06-22] MEDS ORDERED: Potassium Chlor 20 meq TAB.ER PO ONE (17:44)
[2021-06-23] MEDS: Furosemide 100 mg/10 ml IV 100 MG in NS 0.9% 100 ml BAG 90 ML IV SCH ×2 (02:06→12:27)
[2021-06-23] MEDS: Ondansetron 4 mg VIAL 2 MG/ML 2 ml VIAL IV PRN ×3 (02:13→14:28)
[2021-06-23 05:05] LABS: Calcium 8.9 mg/dL (8.6-10.3); Potassium 3.6 mmol/L (3.5-5.0)
[2021-06-23 05:08] LABS: Hematocrit 26 % (42-52); Hemoglobin 9.1 g/dL (14.0-18.0); Mean Corpuscular HGB Conc 35 g/dL (31-36); Mean Corpuscular Hemoglobin 33 pg (27-31); Mean Corpuscular Volume 97 fL (80-94); Mean Platelet Volume 7.1 fL (7.4-10.4); Platelet Count 49 10^3/uL (150-450); Red Blood Count 2.73 10^6 /uL (4.18-5.48); Red Cell Distribution Width 26 % (10-15); White Blood Count 6.7 10^3/uL (3.5-10.8)
[2021-06-23 05:09] LABS: Magnesium 1.8 mg/dL (1.9-2.7)
[2021-06-23] MEDS: FLUTICAS/UMECLI/VILANT 200-62.5-25 MDI (NF) INH SCH (08:35)
[2021-06-23] MEDS: Multivitamins/Minerals TAB PO SCH (08:37)
[2021-06-23] MEDS: Lactulose 30 ml UDC PO SCH ×3 (08:38→20:23)
[2021-06-23] MEDS: Potassium Chloride LIQUID 20 MEQ/15 ML LIQUID PO SCH ×2 (08:38→20:25)
[2021-06-23] MEDS: Pentoxifylline CR 400 mg TAB 400 MG PO SCH ×3 (08:38→20:24)
[2021-06-23] MEDS: Lidocaine PATCH 5% PATCH TRANSDERM SCH (08:51)
[2021-06-23 10:59] LABS: Albumin 3.8 g/dL (3.2-5.2); Albumin/Globulin Ratio 1.5 (1-3); Globulin 2.6 g/dL (2-4); Total Protein 6.4 g/dL (6.4-8.9)
[2021-06-23 11:07] LABS: Total Bilirubin 14.1 mg/dL (0.2-1.0)
[2021-06-23] MEDS: LORazepam 2 mg VIAL 1 ml IV PUSH PRN (16:52)
[2021-06-23] MEDS: Albuterol HFA INHALER 8 gm MDI INH PRN (16:52)
[2021-06-23] MEDS ORDERED: Magnesium Sulfate 2 gm BAG 2 GM/50 ML BAG IVPB ONE (17:53)
[2021-06-23] MEDS ORDERED: Morphine 2 MG/ML SYRINGE IV ONE (19:09)
[2021-06-23] MEDS ORDERED: Al Hydrox/Mg Hydrox/Simet LIQ 30 ML UDC PO ONE (19:09)
[2021-06-23 20:50] LABS: High Sensitivity Troponin 1 Hr 12 pg/mL (<20)
[2021-06-23 20:56] LABS: Calcium 8.9 mg/dL (8.6-10.3); Phosphorus 3.3 mg/dL (2.5-5.0); Potassium 3.5 mmol/L (3.5-5.0)
[2021-06-23 20:57] LABS: Magnesium 1.9 mg/dL (1.9-2.7)
[2021-06-23] MEDS ORDERED: Potassium Chlor 20 meq TAB.ER PO ONE (21:40)
[2021-06-23] MEDS ORDERED: Magnesium Sulfate IV 1GM/100ML 1 GM/100 ML BAG IV ONE (21:41)
[2021-06-24 06:23] LABS: Hematocrit 25 % (42-52); Hemoglobin 8.6 g/dL (14.0-18.0); Mean Corpuscular HGB Conc 34 g/dL (31-36); Mean Corpuscular Hemoglobin 33 pg (27-31); Mean Corpuscular Volume 97 fL (80-94); Mean Platelet Volume 7.3 fL (7.4-10.4); Platelet Count 46 10^3/uL (150-450); Red Blood Count 2.58 10^6 /uL (4.18-5.48); Red Cell Distribution Width 27 % (10-15); White Blood Count 7.4 10^3/uL (3.5-10.8)
[2021-06-24 06:43] LABS: Calcium 8.8 mg/dL (8.6-10.3); Potassium 3.7 mmol/L (3.5-5.0); eGFR CKD-EPI 111.6 (>60)
[2021-06-24] MEDS: Lactulose 30 ml UDC PO SCH ×3 (08:17→22:22)
[2021-06-24] MEDS: Potassium Chloride LIQUID 20 MEQ/15 ML LIQUID PO SCH ×2 (08:20→22:24)
[2021-06-24] MEDS: Lidocaine PATCH 5% PATCH TRANSDERM SCH (08:21)
[2021-06-24] MEDS: Multivitamins/Minerals TAB PO SCH (08:22)
[2021-06-24] MEDS: Pentoxifylline CR 400 mg TAB 400 MG PO SCH ×3 (08:22→22:25)
[2021-06-24] MEDS: FLUTICAS/UMECLI/VILANT 200-62.5-25 MDI (NF) INH SCH (08:57)
[2021-06-24] MEDS: Albuterol HFA INHALER 8 gm MDI INH PRN (08:57)
[2021-06-24] MEDS: Furosemide 100 mg/10 ml IV 100 MG in NS 0.9% 100 ml BAG 90 ML IV SCH (10:23)
[2021-06-24] MEDS: Ondansetron 4 mg VIAL 2 MG/ML 2 ml VIAL IV PRN (21:12)
[2021-06-25] MEDS: Furosemide 100 mg/10 ml IV 100 MG in NS 0.9% 100 ml BAG 90 ML IV SCH (05:25)
[2021-06-25 06:03] LABS: Albumin 3.5 g/dL (3.2-5.2); Albumin/Globulin Ratio 1.3 (1-3); Calcium 8.7 mg/dL (8.6-10.3); Globulin 2.7 g/dL (2-4); Potassium 3.7 mmol/L (3.5-5.0); Total Protein 6.2 g/dL (6.4-8.9); eGFR CKD-EPI 109.4 (>60)
[2021-06-25 06:07] LABS: Magnesium 1.9 mg/dL (1.9-2.7)
[2021-06-25 06:37] LABS: Total Bilirubin 12.9 mg/dL (0.2-1.0)
[2021-06-25] MEDS ORDERED: Potassium Chlor 20 meq TAB.ER PO ONE (07:19)
[2021-06-25] MEDS: Ondansetron 4 mg VIAL 2 MG/ML 2 ml VIAL IV PRN ×2 (08:16→17:41)
[2021-06-25] MEDS: Potassium Chloride LIQUID 20 MEQ/15 ML LIQUID PO SCH ×2 (08:19→20:57)
[2021-06-25] MEDS: Multivitamins/Minerals TAB PO SCH (08:20)
[2021-06-25] MEDS: Pentoxifylline CR 400 mg TAB 400 MG PO SCH ×3 (08:20→20:49)
[2021-06-25] MEDS: Lidocaine PATCH 5% PATCH TRANSDERM SCH (08:24)
[2021-06-25] MEDS: Lactulose 30 ml UDC PO SCH ×3 (08:25→20:57)
[2021-06-25] MEDS: FLUTICAS/UMECLI/VILANT 200-62.5-25 MDI (NF) INH SCH (08:27)
[2021-06-25] MEDS: Albuterol HFA INHALER 8 gm MDI INH PRN ×2 (08:32→22:16)
[2021-06-25 08:53] LABS: Hematocrit 25 % (42-52); Hemoglobin 8.8 g/dL (14.0-18.0); Mean Corpuscular HGB Conc 35 g/dL (31-36); Mean Corpuscular Hemoglobin 34 pg (27-31); Mean Corpuscular Volume 98 fL (80-94); Mean Platelet Volume 8.3 fL (7.4-10.4); Platelet Count 43 10^3/uL (150-450); Red Blood Count 2.57 10^6 /uL (4.18-5.48); Red Cell Distribution Width 27 % (10-15); White Blood Count 7.1 10^3/uL (3.5-10.8)
[2021-06-25 08:55] LABS: INR 3.2 (0.86-1.15)
[2021-06-25] MEDS: Furosemide 40 mg/4 ml IV VIAL IV SCH ×2 (11:27→20:49)
[2021-06-26 07:00] LABS: Potassium 3.9 mmol/L (3.5-5.0)
[2021-06-26 07:05] LABS: eGFR CKD-EPI 110.7 (>60)
[2021-06-26 07:11] LABS: Magnesium 1.8 mg/dL (1.9-2.7)
[2021-06-26] MEDS: Lidocaine PATCH 5% PATCH TRANSDERM SCH (08:14)
[2021-06-26] MEDS: Lactulose 30 ml UDC PO SCH ×3 (08:15→20:05)
[2021-06-26] MEDS: Pentoxifylline CR 400 mg TAB 400 MG PO SCH ×3 (08:15→20:05)
[2021-06-26] MEDS: Potassium Chloride LIQUID 20 MEQ/15 ML LIQUID PO SCH ×2 (08:15→20:05)
[2021-06-26] MEDS: Multivitamins/Minerals TAB PO SCH (08:16)
[2021-06-26] MEDS: Furosemide 40 mg/4 ml IV VIAL IV SCH ×2 (08:16→16:55)
[2021-06-26] MEDS: FLUTICAS/UMECLI/VILANT 200-62.5-25 MDI (NF) INH SCH (08:16)
[2021-06-26] MEDS: Albuterol HFA INHALER 8 gm MDI INH PRN (08:17)
[2021-06-26] MEDS: Ondansetron 4 mg VIAL 2 MG/ML 2 ml VIAL IV PRN ×2 (15:39→23:18)
[2021-06-27] MEDS: Albuterol HFA INHALER 8 gm MDI INH PRN ×2 (00:20→17:04)
[2021-06-27] MEDS: Lidocaine PATCH 5% PATCH TRANSDERM SCH (10:09)
[2021-06-27] MEDS: Ondansetron 4 mg VIAL 2 MG/ML 2 ml VIAL IV PRN ×2 (10:17→17:10)
[2021-06-27] MEDS: Furosemide 40 mg/4 ml IV VIAL IV SCH ×2 (10:18→16:02)
[2021-06-27] MEDS: Lactulose 30 ml UDC PO SCH ×3 (10:51→21:30)
[2021-06-27] MEDS: Pentoxifylline CR 400 mg TAB 400 MG PO SCH ×3 (10:54→21:30)
[2021-06-27] MEDS: Potassium Chloride LIQUID 20 MEQ/15 ML LIQUID PO SCH ×2 (10:56→21:29)
[2021-06-27] MEDS: Multivitamins/Minerals TAB PO SCH (10:56)
[2021-06-27] MEDS: FLUTICAS/UMECLI/VILANT 200-62.5-25 MDI (NF) INH SCH (11:41)
[2021-06-27 13:48] LABS: ABS Eosinophils 0.1 10^3/ul (0-0.6); ABS Lymphocytes 0.9 10^3/ul (1.0-4.8); ABS Monocytes 0.8 10^3/ul (0-0.8); ABS Neutrophils 5.5 10^3/ul (1.5-7.7); Eosinophil % 1.1 %; Hematocrit 26 % (42-52); Hemoglobin 9.1 g/dL (14.0-18.0); Lymphocyte % 12.6 %; Mean Corpuscular HGB Conc 35 g/dL (31-36); Mean Corpuscular Hemoglobin 34 pg (27-31); Mean Corpuscular Volume 99 fL (80-94); Platelet Count 42 10^3/uL (150-450); Red Blood Count 2.64 10^6 /uL (4.18-5.48); Red Cell Distribution Width 27 % (10-15); White Blood Count 7.3 10^3/uL (3.5-10.8)
[2021-06-27 13:56] LABS: Albumin 3.6 g/dL (3.2-5.2); Calcium 8.7 mg/dL (8.6-10.3); Potassium 3.9 mmol/L (3.5-5.0); Total Bilirubin 11.3 mg/dL (0.2-1.0)
[2021-06-27 14:02] LABS: Albumin/Globulin Ratio 1.3 (1-3); Globulin 2.8 g/dL (2-4); Total Protein 6.4 g/dL (6.4-8.9); eGFR CKD-EPI 112.9 (>60)
[2021-06-27 14:29] LABS: Magnesium 1.8 mg/dL (1.9-2.7)
[2021-06-28 06:15] LABS: ABS Eosinophils 0.1 10^3/ul (0-0.6); ABS Lymphocytes 1.3 10^3/ul (1.0-4.8); ABS Monocytes 0.7 10^3/ul (0-0.8); ABS Neutrophils 5.5 10^3/ul (1.5-7.7); Anisocytosis 2+; Eosinophil % 1.3 %; Hematocrit 26 % (42-52); Hemoglobin 9.1 g/dL (14.0-18.0); Lymphocyte % 17.1 %; Mean Corpuscular HGB Conc 35 g/dL (31-36); Mean Corpuscular Hemoglobin 34 pg (27-31); Mean Corpuscular Volume 98 fL (80-94); Mean Platelet Volume 7.9 fL (7.4-10.4); Microcytosis 1+; Platelet Count 44 10^3/uL (150-450); Red Blood Count 2.66 10^6 /uL (4.18-5.48); Red Cell Distribution Width 27 % (10-15); White Blood Count 7.7 10^3/uL (3.5-10.8)
[2021-06-28] MEDS: FLUTICAS/UMECLI/VILANT 200-62.5-25 MDI (NF) INH SCH (07:16)
[2021-06-28] MEDS: Albuterol HFA INHALER 8 gm MDI INH PRN ×3 (07:16→20:59)
[2021-06-28] MEDS: Furosemide 40 mg/4 ml IV VIAL IV SCH ×2 (08:06→15:08)
[2021-06-28] MEDS: Potassium Chloride LIQUID 20 MEQ/15 ML LIQUID PO SCH ×2 (10:05→20:55)
[2021-06-28] MEDS: Lactulose 30 ml UDC PO SCH ×3 (10:05→20:55)
[2021-06-28] MEDS: Pentoxifylline CR 400 mg TAB 400 MG PO SCH ×3 (10:10→20:56)
[2021-06-28] MEDS: Multivitamins/Minerals TAB PO SCH (10:10)
[2021-06-28] MEDS: Lidocaine PATCH 5% PATCH TRANSDERM SCH (10:12)
[2021-06-28] MEDS: Ondansetron 4 mg VIAL 2 MG/ML 2 ml VIAL IV PRN (15:14)
[2021-06-29 06:02] LABS: Magnesium 1.9 mg/dL (1.9-2.7)
[2021-06-29] MEDS: FLUTICAS/UMECLI/VILANT 200-62.5-25 MDI (NF) INH SCH (08:46)
[2021-06-29 09:02] LABS: Albumin 3.4 g/dL (3.2-5.2); Albumin/Globulin Ratio 1.1 (1-3); Globulin 3.1 g/dL (2-4); Potassium 4.2 mmol/L (3.5-5.0); Total Bilirubin 11.8 mg/dL (0.2-1.0); Total Protein 6.5 g/dL (6.4-8.9); eGFR CKD-EPI 113.4 (>60)
[2021-06-29] MEDS: Potassium Chloride LIQUID 20 MEQ/15 ML LIQUID PO SCH ×2 (09:49→21:09)
[2021-06-29] MEDS: Pentoxifylline CR 400 mg TAB 400 MG PO SCH ×3 (09:50→21:10)
[2021-06-29] MEDS: Multivitamins/Minerals TAB PO SCH (09:50)
[2021-06-29] MEDS: Lidocaine PATCH 5% PATCH TRANSDERM SCH (09:50)
[2021-06-29] MEDS: Lactulose 30 ml UDC PO SCH ×3 (09:51→21:08)
[2021-06-29] MEDS: Albuterol HFA INHALER 8 gm MDI INH PRN (21:07)
[2021-06-29] MEDS: Ondansetron 4 mg VIAL 2 MG/ML 2 ml VIAL IV PRN (21:12)
[2021-06-30 06:58] LABS: ABS Eosinophils 0.1 10^3/ul (0-0.6); ABS Lymphocytes 1.3 10^3/ul (1.0-4.8); ABS Monocytes 0.8 10^3/ul (0-0.8); ABS Neutrophils 6.7 10^3/ul (1.5-7.7); Eosinophil % 1.1 %; Hematocrit 27 % (42-52); Hemoglobin 9.5 g/dL (14.0-18.0); Mean Corpuscular HGB Conc 36 g/dL (31-36); Mean Corpuscular Hemoglobin 35 pg (27-31); Mean Corpuscular Volume 99 fL (80-94); Mean Platelet Volume 8.1 fL (7.4-10.4); Platelet Count 46 10^3/uL (150-450); Red Blood Count 2.69 10^6 /uL (4.18-5.48); Red Cell Distribution Width 26 % (10-15)
[2021-06-30 07:30] LABS: Albumin 3.4 g/dL (3.2-5.2); Albumin/Globulin Ratio 1.1 (1-3); Calcium 8.5 mg/dL (8.6-10.3); Globulin 3.1 g/dL (2-4); Total Bilirubin 11.6 mg/dL (0.2-1.0); Total Protein 6.5 g/dL (6.4-8.9); eGFR CKD-EPI 113.4 (>60)
[2021-06-30 07:48] LABS: Acanthocytes 1+; Anisocytosis 1+
[2021-06-30 07:49] LABS: Microcytosis 1+
[2021-06-30] MEDS: Ondansetron 4 mg VIAL 2 MG/ML 2 ml VIAL IV PRN ×3 (08:22→21:20)
[2021-06-30] MEDS: FLUTICAS/UMECLI/VILANT 200-62.5-25 MDI (NF) INH SCH (08:38)
[2021-06-30] MEDS: Lactulose 30 ml UDC PO SCH ×3 (10:40→21:02)
[2021-06-30] MEDS: Potassium Chloride LIQUID 20 MEQ/15 ML LIQUID PO SCH ×2 (10:40→21:02)
[2021-06-30] MEDS: Multivitamins/Minerals TAB PO SCH (10:44)
[2021-06-30] MEDS: Pentoxifylline CR 400 mg TAB 400 MG PO SCH ×3 (10:44→21:02)
[2021-06-30] MEDS: Lidocaine PATCH 5% PATCH TRANSDERM SCH (10:48)
[2021-06-30] MEDS: Albuterol HFA INHALER 8 gm MDI INH PRN ×2 (15:45→21:15)
[2021-07-01] MEDS: Ondansetron 4 mg VIAL 2 MG/ML 2 ml VIAL IV PRN ×3 (05:55→20:13)
[2021-07-01 07:39] LABS: Calcium 8.7 mg/dL (8.6-10.3); Potassium 3.9 mmol/L (3.5-5.0); eGFR CKD-EPI 108.2 (>60)
[2021-07-01 08:32] LABS: Hematocrit 27 % (42-52); Hemoglobin 9.6 g/dL (14.0-18.0); Mean Corpuscular HGB Conc 35 g/dL (31-36); Mean Corpuscular Hemoglobin 35 pg (27-31); Mean Corpuscular Volume 98 fL (80-94); Mean Platelet Volume 7.9 fL (7.4-10.4); Platelet Count 50 10^3/uL (150-450); Red Blood Count 2.78 10^6 /uL (4.18-5.48); Red Cell Distribution Width 27 % (10-15); White Blood Count 11.4 10^3/uL (3.5-10.8)
[2021-07-01] MEDS: Albuterol HFA INHALER 8 gm MDI INH PRN (09:02)
[2021-07-01] MEDS: FLUTICAS/UMECLI/VILANT 200-62.5-25 MDI (NF) INH SCH (09:02)
[2021-07-01] MEDS: Multivitamins/Minerals TAB PO SCH (09:27)
[2021-07-01] MEDS: Pentoxifylline CR 400 mg TAB 400 MG PO SCH ×3 (09:28→22:50)
[2021-07-01] MEDS: Potassium Chloride LIQUID 20 MEQ/15 ML LIQUID PO SCH ×2 (09:28→22:49)
[2021-07-01] MEDS: Lactulose 30 ml UDC PO SCH ×3 (09:28→22:49)
[2021-07-01] MEDS: Lidocaine PATCH 5% PATCH TRANSDERM SCH (09:29)
[2021-07-02] MEDS: Albuterol HFA INHALER 8 gm MDI INH PRN ×3 (00:03→13:44)
[2021-07-02] MEDS: Ondansetron 4 mg VIAL 2 MG/ML 2 ml VIAL IV PRN ×2 (03:55→09:45)
[2021-07-02] MEDS: FLUTICAS/UMECLI/VILANT 200-62.5-25 MDI (NF) INH SCH (09:02)
[2021-07-02] MEDS: Lactulose 30 ml UDC PO SCH ×3 (10:33→20:19)
[2021-07-02] MEDS: Potassium Chloride LIQUID 20 MEQ/15 ML LIQUID PO SCH ×2 (10:33→20:19)
[2021-07-02] MEDS: Pentoxifylline CR 400 mg TAB 400 MG PO SCH ×3 (10:35→20:18)
[2021-07-02] MEDS: Multivitamins/Minerals TAB PO SCH (10:35)
[2021-07-02] MEDS: Lidocaine PATCH 5% PATCH TRANSDERM SCH (10:37)
[2021-07-03 05:20] LABS: ABS Eosinophils 0.2 10^3/ul (0-0.6); ABS Lymphocytes 1.6 10^3/ul (1.0-4.8); ABS Monocytes 1.3 10^3/ul (0-0.8); ABS Neutrophils 8.3 10^3/ul (1.5-7.7); Eosinophil % 1.5 %; Hematocrit 28 % (42-52); Hemoglobin 10.1 g/dL (14.0-18.0); Lymphocyte % 14.2 %; Mean Corpuscular HGB Conc 36 g/dL (31-36); Mean Corpuscular Hemoglobin 35 pg (27-31); Mean Corpuscular Volume 97 fL (80-94); Mean Platelet Volume 8.1 fL (7.4-10.4); Platelet Count 60 10^3/uL (150-450); Red Blood Count 2.91 10^6 /uL (4.18-5.48); Red Cell Distribution Width 26 % (10-15); White Blood Count 11.5 10^3/uL (3.5-10.8)
[2021-07-03 05:42] LABS: Phosphorus 4.4 mg/dL (2.5-5.0); Potassium 3.8 mmol/L (3.5-5.0); eGFR CKD-EPI 94.6 (>60)
[2021-07-03 06:13] LABS: Calcium 8.8 mg/dL (8.6-10.3)
[2021-07-03] MEDS: Potassium Chloride LIQUID 20 MEQ/15 ML LIQUID PO SCH ×2 (09:07→21:47)
[2021-07-03] MEDS: Albuterol HFA INHALER 8 gm MDI INH PRN ×2 (09:07→22:46)
[2021-07-03] MEDS: Lactulose 30 ml UDC PO SCH ×3 (09:08→21:46)
[2021-07-03] MEDS: Pentoxifylline CR 400 mg TAB 400 MG PO SCH ×2 (09:11→15:54)
[2021-07-03] MEDS: Multivitamins/Minerals TAB PO SCH (09:13)
[2021-07-03] MEDS: Lidocaine PATCH 5% PATCH TRANSDERM SCH (09:14)
[2021-07-03] MEDS: FLUTICAS/UMECLI/VILANT 200-62.5-25 MDI (NF) INH SCH (09:19)
[2021-07-03 10:19] LABS: Magnesium 1.8 mg/dL (1.9-2.7)
[2021-07-04 06:04] LABS: ABS Eosinophils 0.2 10^3/ul (0-0.6); ABS Lymphocytes 1.7 10^3/ul (1.0-4.8); ABS Monocytes 1.3 10^3/ul (0-0.8); Eosinophil % 1.4 %; Hematocrit 28 % (42-52); Hemoglobin 9.9 g/dL (14.0-18.0); Lymphocyte % 14.1 %; Mean Corpuscular HGB Conc 35 g/dL (31-36); Mean Corpuscular Hemoglobin 34 pg (27-31); Mean Corpuscular Volume 96 fL (80-94); Mean Platelet Volume 7.8 fL (7.4-10.4); Nucleated Red Blood Cells % 0.1; Platelet Count 68 10^3/uL (150-450); Red Blood Count 2.94 10^6 /uL (4.18-5.48); Red Cell Distribution Width 26 % (10-15); White Blood Count 12.3 10^3/uL (3.5-10.8)
[2021-07-04 06:28] LABS: Calcium 8.9 mg/dL (8.6-10.3); Potassium 3.9 mmol/L (3.5-5.0); eGFR CKD-EPI 98.1 (>60)
[2021-07-04] MEDS: FLUTICAS/UMECLI/VILANT 200-62.5-25 MDI (NF) INH SCH (07:16)
[2021-07-04] MEDS: Albuterol HFA INHALER 8 gm MDI INH PRN (07:17)
[2021-07-04] MEDS ORDERED: NS 0.9% 250 ml 250 ML IV SCH (08:00)
[2021-07-04] MEDS: Multivitamins/Minerals TAB PO SCH (09:43)
[2021-07-04] MEDS: Lactulose 30 ml UDC PO SCH ×3 (09:46→22:36)
[2021-07-04] MEDS: Potassium Chloride LIQUID 20 MEQ/15 ML LIQUID PO SCH ×2 (09:46→22:36)
[2021-07-04] MEDS: Lidocaine PATCH 5% PATCH TRANSDERM SCH (09:51)
[2021-07-04 10:26] LABS: Magnesium 1.7 mg/dL (1.9-2.7)
[2021-07-04] MEDS ORDERED: NS 0.9% 250 ml 250 ML IV ONE ×3 (10:30→17:51)
[2021-07-04 16:49] LABS: Calcium 9.3 mg/dL (8.6-10.3); Potassium 4.5 mmol/L (3.5-5.0); eGFR CKD-EPI 99.3 (>60)
[2021-07-04] MEDS ORDERED: Albumin Human 25% 25 GM/100 ML BTL IV ONE (17:45)
[2021-07-04 21:12] LABS: Calcium 8.9 mg/dL (8.6-10.3); Potassium 4.4 mmol/L (3.5-5.0); eGFR CKD-EPI 107.5 (>60)
[2021-07-05 04:43] LABS: Hematocrit 25 % (42-52); Hemoglobin 8.9 g/dL (14.0-18.0); Mean Corpuscular HGB Conc 36 g/dL (31-36); Mean Corpuscular Hemoglobin 35 pg (27-31); Mean Corpuscular Volume 97 fL (80-94); Mean Platelet Volume 8.2 fL (7.4-10.4); Platelet Count 59 10^3/uL (150-450); Red Blood Count 2.52 10^6 /uL (4.18-5.48); Red Cell Distribution Width 25 % (10-15); White Blood Count 10.4 10^3/uL (3.5-10.8)
[2021-07-05 04:56] LABS: Calcium 8.8 mg/dL (8.6-10.3); Potassium 4.5 mmol/L (3.5-5.0)
[2021-07-05 04:58] LABS: ABS Eosinophils 0.2 10^3/ul (0-0.6); ABS Lymphocytes 1.7 10^3/ul (1.0-4.8); ABS Monocytes 1.3 10^3/ul (0-0.8); ABS Neutrophils 7.1 10^3/ul (1.5-7.7); Anisocytosis 2+; Eosinophil % 1.8 %; Lymphocyte % 16.7 %
[2021-07-05 04:59] LABS: Burr Cells 1+
[2021-07-05 09:24] LABS: Magnesium 1.9 mg/dL (1.9-2.7)
[2021-07-05] MEDS: Lactulose 30 ml UDC PO SCH ×3 (10:50→20:26)
[2021-07-05] MEDS: Potassium Chloride LIQUID 20 MEQ/15 ML LIQUID PO SCH (10:51)
[2021-07-05] MEDS: Multivitamins/Minerals TAB PO SCH (10:52)
[2021-07-05] MEDS: FLUTICAS/UMECLI/VILANT 200-62.5-25 MDI (NF) INH SCH (10:54)
[2021-07-05] MEDS: Lidocaine PATCH 5% PATCH TRANSDERM SCH (10:56)
[2021-07-05 11:20] LABS: Calcium 8.8 mg/dL (8.6-10.3); Potassium 4.7 mmol/L (3.5-5.0); eGFR CKD-EPI 114.4 (>60)
[2021-07-05 17:14] LABS: Calcium 9.2 mg/dL (8.6-10.3); Potassium 4.9 mmol/L (3.5-5.0); eGFR CKD-EPI 112.9 (>60)
[2021-07-05] MEDS ORDERED: Albumin Human 25% 25 GM/100 ML BTL IV ONE (18:30)
[2021-07-06 06:02] LABS: ABS Eosinophils 0.2 10^3/ul (0-0.6); ABS Lymphocytes 1.6 10^3/ul (1.0-4.8); ABS Monocytes 1.1 10^3/ul (0-0.8); ABS Neutrophils 6.5 10^3/ul (1.5-7.7); Eosinophil % 1.7 %; Hematocrit 24 % (42-52); Hemoglobin 8.5 g/dL (14.0-18.0); Lymphocyte % 17.6 %; Mean Corpuscular HGB Conc 36 g/dL (31-36); Mean Corpuscular Hemoglobin 35 pg (27-31); Mean Corpuscular Volume 98 fL (80-94); Mean Platelet Volume 7.6 fL (7.4-10.4); Nucleated Red Blood Cells % 0.2; Platelet Count 53 10^3/uL (150-450); Red Blood Count 2.41 10^6 /uL (4.18-5.48); Red Cell Distribution Width 26 % (10-15); White Blood Count 9.4 10^3/uL (3.5-10.8)
[2021-07-06 06:17] LABS: Calcium 8.9 mg/dL (8.6-10.3); Potassium 4.6 mmol/L (3.5-5.0); eGFR CKD-EPI 115.4 (>60)
[2021-07-06 06:20] LABS: Magnesium 1.8 mg/dL (1.9-2.7)
[2021-07-06 06:38] LABS: Acanthocytes 1+; Anisocytosis 2+; Microcytosis 1+
[2021-07-06] MEDS ORDERED: Magnesium Sulfate 2 gm BAG 2 GM/50 ML BAG IVPB ONE (07:28)
[2021-07-06] MEDS: FLUTICAS/UMECLI/VILANT 200-62.5-25 MDI (NF) INH SCH (08:29)
[2021-07-06] MEDS: Albuterol HFA INHALER 8 gm MDI INH PRN (08:30)
[2021-07-06] MEDS: Lidocaine PATCH 5% PATCH TRANSDERM SCH (09:16)
[2021-07-06] MEDS: Multivitamins/Minerals TAB PO SCH (09:19)
[2021-07-06] MEDS: Lactulose 30 ml UDC PO SCH ×2 (09:19→15:35)
[2021-07-07 06:18] LABS: INR 2.97 (0.86-1.15)
[2021-07-07] MEDS ORDERED: Magnesium Sulfate 2 gm BAG 2 GM/50 ML BAG IVPB ONE ×2 (06:21→06:47)
[2021-07-07 06:29] LABS: Albumin 3.4 g/dL (3.2-5.2); Albumin/Globulin Ratio 1.2 (1-3); Calcium 8.8 mg/dL (8.6-10.3); Globulin 2.9 g/dL (2-4); Potassium 4.5 mmol/L (3.5-5.0); Total Protein 6.3 g/dL (6.4-8.9)
[2021-07-07 06:31] LABS: Magnesium 1.7 mg/dL (1.9-2.7); Total Bilirubin 12.3 mg/dL (0.2-1.0)
[2021-07-07 06:43] LABS: ABS Eosinophils 0.2 10^3/ul (0-0.6); ABS Lymphocytes 1.6 10^3/ul (1.0-4.8); ABS Monocytes 1.2 10^3/ul (0-0.8); ABS Neutrophils 7.7 10^3/ul (1.5-7.7); Eosinophil % 2.3 %; Hematocrit 23 % (42-52); Hemoglobin 8.4 g/dL (14.0-18.0); Lymphocyte % 14.7 %; Mean Corpuscular HGB Conc 36 g/dL (31-36); Mean Corpuscular Hemoglobin 36 pg (27-31); Mean Corpuscular Volume 98 fL (80-94); Mean Platelet Volume 7.7 fL (7.4-10.4); Platelet Count 56 10^3/uL (150-450); Red Blood Count 2.38 10^6 /uL (4.18-5.48); Red Cell Distribution Width 25 % (10-15); White Blood Count 10.8 10^3/uL (3.5-10.8)
[2021-07-07] MEDS: Lidocaine PATCH 5% PATCH TRANSDERM SCH (07:55)
[2021-07-07] MEDS ORDERED: Albumin Human 25% 25 GM/100 ML BTL IV ONE (08:30)
[2021-07-07] MEDS: FLUTICAS/UMECLI/VILANT 200-62.5-25 MDI (NF) INH SCH (09:28)
[2021-07-07] MEDS: Albuterol HFA INHALER 8 gm MDI INH PRN (09:29)
[2021-07-07] MEDS: Multivitamins/Minerals TAB PO SCH (09:51)
[2021-07-07 17:14] LABS: Calcium 8.9 mg/dL (8.6-10.3); Potassium 4.7 mmol/L (3.5-5.0); eGFR CKD-EPI 114.9 (>60)
[2021-07-08 06:29] LABS: Calcium 8.8 mg/dL (8.6-10.3); Potassium 4.8 mmol/L (3.5-5.0); eGFR CKD-EPI 116.4 (>60)
[2021-07-08] MEDS: FLUTICAS/UMECLI/VILANT 200-62.5-25 MDI (NF) INH SCH (07:45)
[2021-07-08] MEDS: Multivitamins/Minerals TAB PO SCH (09:46)
[2021-07-08] MEDS: Lidocaine PATCH 5% PATCH TRANSDERM SCH (09:47)
[2021-07-09 05:46] LABS: Calcium 8.8 mg/dL (8.6-10.3); Potassium 4.6 mmol/L (3.5-5.0)
[2021-07-09 05:51] LABS: eGFR CKD-EPI 119.8 (>60)
[2021-07-09] MEDS: Multivitamins/Minerals TAB PO SCH (08:43)
[2021-07-09] MEDS: FLUTICAS/UMECLI/VILANT 200-62.5-25 MDI (NF) INH SCH (08:46)
[2021-07-09] MEDS: Lidocaine PATCH 5% PATCH TRANSDERM SCH (08:47)
[2021-07-09 12:39] LABS: Albumin 3.6 g/dL (3.2-5.2); Albumin/Globulin Ratio 1.5 (1-3); Globulin 2.4 g/dL (2-4); Indirect Bilirubin 8.5 mg/dL (0.3-1.0); Total Bilirubin 11.5 mg/dL (0.2-1.0)
[2021-07-09 12:55] LABS: Magnesium 1.7 mg/dL (1.9-2.7)
[2021-07-10 05:15] LABS: Calcium 9.1 mg/dL (8.6-10.3); Potassium 4.7 mmol/L (3.5-5.0); eGFR CKD-EPI 119.2 (>60)
[2021-07-10 05:16] LABS: Magnesium 1.8 mg/dL (1.9-2.7)
[2021-07-10] MEDS ORDERED: Magnesium Sulfate 2 gm BAG 2 GM/50 ML BAG IVPB ONE (06:31)
[2021-07-10] MEDS: Multivitamins/Minerals TAB PO SCH (08:00)
[2021-07-10] MEDS: Lidocaine PATCH 5% PATCH TRANSDERM SCH (08:02)
[2021-07-10] MEDS: FLUTICAS/UMECLI/VILANT 200-62.5-25 MDI (NF) INH SCH (08:43)
[2021-07-10] MEDS: Lactulose 30 ml UDC PO SCH ×3 (12:42→22:29)
[2021-07-10] MEDS: Albuterol HFA INHALER 8 gm MDI INH PRN (13:57)
[2021-07-11] MEDS: Lactulose 30 ml UDC PO SCH ×4 (05:33→23:04)
[2021-07-11 05:44] LABS: Albumin 3.3 g/dL (3.2-5.2); Albumin/Globulin Ratio 1.2 (1-3); Calcium 8.6 mg/dL (8.6-10.3); Globulin 2.8 g/dL (2-4); Potassium 4.9 mmol/L (3.5-5.0); Total Bilirubin 10.7 mg/dL (0.2-1.0); Total Protein 6.1 g/dL (6.4-8.9); eGFR CKD-EPI 112.5 (>60)
[2021-07-11 05:53] LABS: Magnesium 1.9 mg/dL (1.9-2.7)
[2021-07-11] MEDS: Lidocaine PATCH 5% PATCH TRANSDERM SCH (07:28)
[2021-07-11] MEDS: Multivitamins/Minerals TAB PO SCH (07:28)
[2021-07-11] MEDS: FLUTICAS/UMECLI/VILANT 200-62.5-25 MDI (NF) INH SCH (07:55)
[2021-07-11] MEDS: Albuterol HFA INHALER 8 gm MDI INH PRN (07:56)
[2021-07-11] MEDS ORDERED: Dextran 70/Hypromellose Tears Eye Drops 15 ml BTL (for Artificials Tears) BOTH EYES PRN (08:40)
[2021-07-11 15:37] LABS: ABS Basophils 0.1 10^3/ul (0-0.2); ABS Eosinophils 0.1 10^3/ul (0-0.6); ABS Lymphocytes 1.3 10^3/ul (1.0-4.8); ABS Monocytes 1.1 10^3/ul (0-0.8); Eosinophil % 1.4 %; Hematocrit 24 % (42-52); Hemoglobin 8.7 g/dL (14.0-18.0); Mean Corpuscular HGB Conc 36 g/dL (31-36); Mean Corpuscular Hemoglobin 36 pg (27-31); Mean Corpuscular Volume 101 fL (80-94); Mean Platelet Volume 7.2 fL (7.4-10.4); Platelet Count 60 10^3/uL (150-450); Red Blood Count 2.39 10^6 /uL (4.18-5.48); Red Cell Distribution Width 25 % (10-15); White Blood Count 9.6 10^3/uL (3.5-10.8)
[2021-07-11 15:42] LABS: INR 2.88 (0.86-1.15)
[2021-07-11] MEDS ORDERED: Naloxone Nasal Spray 4 MG/0.1 ML NASAL.SPR INTRANASAL PRN (16:40)
[2021-07-12] MEDS: Lactulose 30 ml UDC PO SCH ×4 (05:35→22:33)
[2021-07-12 06:18] LABS: INR 2.85 (0.86-1.15)
[2021-07-12 06:27] LABS: Hematocrit 24 % (42-52); Hemoglobin 8.6 g/dL (14.0-18.0); Mean Corpuscular HGB Conc 36 g/dL (31-36); Mean Corpuscular Hemoglobin 36 pg (27-31); Mean Corpuscular Volume 100 fL (80-94); Mean Platelet Volume 6.9 fL (7.4-10.4); Platelet Count 53 10^3/uL (150-450); Red Blood Count 2.39 10^6 /uL (4.18-5.48); Red Cell Distribution Width 24 % (10-15); White Blood Count 9.8 10^3/uL (3.5-10.8)
[2021-07-12 06:50] LABS: Albumin 3.6 g/dL (3.2-5.2); Albumin/Globulin Ratio 1.2 (1-3); Calcium 8.9 mg/dL (8.6-10.3); Potassium 4.6 mmol/L (3.5-5.0); Total Bilirubin 11.7 mg/dL (0.2-1.0); Total Protein 6.6 g/dL (6.4-8.9); eGFR CKD-EPI 115.9 (>60)
[2021-07-12] MEDS: FLUTICAS/UMECLI/VILANT 200-62.5-25 MDI (NF) INH SCH (08:02)
[2021-07-12] MEDS: Albuterol HFA INHALER 8 gm MDI INH PRN (08:03)
[2021-07-12] MEDS: Multivitamins/Minerals TAB PO SCH (08:09)
[2021-07-12] MEDS: Lidocaine PATCH 5% PATCH TRANSDERM SCH (08:10)
[2021-07-12 08:12] LABS: Magnesium 1.8 mg/dL (1.9-2.7)
[2021-07-12] MEDS ORDERED: Glycerin ADULT 2.4 gm SUPP PR ONE (17:19)
[2021-07-13 04:42] LABS: Hematocrit 23 % (42-52); Hemoglobin 8.1 g/dL (14.0-18.0); Mean Corpuscular HGB Conc 36 g/dL (31-36); Mean Corpuscular Hemoglobin 36 pg (27-31); Mean Corpuscular Volume 100 fL (80-94); Mean Platelet Volume 7.1 fL (7.4-10.4); Platelet Count 51 10^3/uL (150-450); Red Blood Count 2.28 10^6 /uL (4.18-5.48); Red Cell Distribution Width 24 % (10-15); White Blood Count 9.8 10^3/uL (3.5-10.8)
[2021-07-13] MEDS: Lactulose 30 ml UDC PO SCH ×4 (05:10→21:51)
[2021-07-13 05:11] LABS: INR 2.94 (0.86-1.15)
[2021-07-13 05:12] LABS: Albumin 3.3 g/dL (3.2-5.2); Albumin/Globulin Ratio 1.2 (1-3); Calcium 8.6 mg/dL (8.6-10.3); Globulin 2.8 g/dL (2-4); Magnesium 1.7 mg/dL (1.9-2.7); Potassium 4.4 mmol/L (3.5-5.0); Total Bilirubin 10.9 mg/dL (0.2-1.0); Total Protein 6.1 g/dL (6.4-8.9); eGFR CKD-EPI 119.8 (>60)
[2021-07-13] MEDS ORDERED: Magnesium Sulfate IV 3 GM in NS 0.9% 100 ml BAG 100 ML IVPB ONE (06:50)
[2021-07-13] MEDS ORDERED: Lactulose 300 ML for PR 200 GM/300 ML BTL PR PRN (06:55)
[2021-07-13] MEDS: FLUTICAS/UMECLI/VILANT 200-62.5-25 MDI (NF) INH SCH (07:34)
[2021-07-13] MEDS: Albuterol HFA INHALER 8 gm MDI INH PRN (07:36)
[2021-07-13] MEDS ORDERED: Magnesium Sulfate 2 GM IV (Premix) IVPB ONE (08:00)
[2021-07-13] MEDS: Multivitamins/Minerals TAB PO SCH (08:16)
[2021-07-13] MEDS: Lidocaine PATCH 5% PATCH TRANSDERM SCH (08:34)
[2021-07-13] MEDS ORDERED: Albumin Human 25% 25 GM/100 ML BTL IV ONE (09:00)
[2021-07-13] MEDS ORDERED: Magnesium Sulfate 1 GM IV 1 GM/100 ML BAG IV ONE (09:00)
[2021-07-13] MEDS: Ure-Na 15 GM POWD.PACK PO SCH (11:07)
[2021-07-13 12:06] LABS: Calcium 8.8 mg/dL (8.6-10.3); Potassium 4.4 mmol/L (3.5-5.0)
[2021-07-13] MEDS: Carbamide Peroxide 6.5% OTIC 15 ML BTL BOTH EARS SCH (20:48)
[2021-07-14] MEDS: Albuterol HFA INHALER 8 gm MDI INH PRN ×2 (02:52→07:16)
[2021-07-14 05:19] LABS: Hematocrit 23 % (42-52); Hemoglobin 8.3 g/dL (14.0-18.0); Mean Corpuscular HGB Conc 36 g/dL (31-36); Mean Corpuscular Hemoglobin 36 pg (27-31); Mean Corpuscular Volume 102 fL (80-94); Mean Platelet Volume 7.4 fL (7.4-10.4); Platelet Count 51 10^3/uL (150-450); Red Blood Count 2.29 10^6 /uL (4.18-5.48); Red Cell Distribution Width 24 % (10-15); White Blood Count 9.1 10^3/uL (3.5-10.8)
[2021-07-14 05:21] LABS: INR 2.87 (0.86-1.15)
[2021-07-14 05:35] LABS: Albumin 3.6 g/dL (3.2-5.2); Albumin/Globulin Ratio 1.2 (1-3); Calcium 8.7 mg/dL (8.6-10.3); Globulin 2.9 g/dL (2-4); Potassium 4.4 mmol/L (3.5-5.0); Total Protein 6.5 g/dL (6.4-8.9); eGFR CKD-EPI 117.5 (>60)
[2021-07-14 05:40] LABS: Magnesium 1.8 mg/dL (1.9-2.7); Total Bilirubin 13.3 mg/dL (0.2-1.0)
[2021-07-14] MEDS: Lactulose 30 ml UDC PO SCH ×3 (06:00→22:07)
[2021-07-14] MEDS: FLUTICAS/UMECLI/VILANT 200-62.5-25 MDI (NF) INH SCH (07:15)
[2021-07-14] MEDS: Lidocaine PATCH 5% PATCH TRANSDERM SCH (08:27)
[2021-07-14] MEDS: Carbamide Peroxide 6.5% OTIC 15 ML BTL BOTH EARS SCH ×2 (09:51→22:12)
[2021-07-14] MEDS: Multivitamins/Minerals TAB PO SCH (09:52)
[2021-07-14] MEDS: Ure-Na 15 GM POWD.PACK PO SCH (09:59)
[2021-07-14] MEDS ORDERED: Octreotide Acetate 50 MCG in NS 0.9% 50 ML 50 ML IV ONE (10:28)
[2021-07-14] MEDS ORDERED: Pantoprazole VIAL 40 MG VIAL IV ONE (10:32)
[2021-07-14] MEDS: Ondansetron 4 mg VIAL 2 MG/ML 2 ml VIAL IV PRN ×2 (10:36→18:49)
[2021-07-14] MEDS ORDERED: NS 0.9% 1000 ml BAG 1,000 ML IV SCH (10:45)
[2021-07-14] MEDS ORDERED: Octreotide Acetate 500 MCG in NS 0.9% 100 ml BAG 100 ML IV SCH (11:00)
[2021-07-14] MEDS ORDERED: Pantoprazole 80 mg in NS BAG 80 MG/250 ML BAG IV SCH (11:00)
[2021-07-14] MEDS: Octreotide Acetate 500 MCG in NS 0.9% 100 ml BAG 100 ML IV SCH ×2 (11:34→22:07)
[2021-07-14 11:59] LABS: Hematocrit 22 % (42-52); Hemoglobin 7.8 g/dL (14.0-18.0)
[2021-07-14] MEDS ORDERED: fentaNYL 250 mcg/5 ml 50 MCG/ML 5 ml VIAL (250 MCG) ONE (12:28)
[2021-07-14] MEDS ORDERED: Midazolam 10 mg/10 ml VIAL 1 mg/ml 10 ml VIAL (10 mg) ONE (12:28)
[2021-07-14] MEDS ORDERED: Succinylcholine 200 mg VIAL 20 mg/ml 10 ml VIAL (200 mg) ONE ×2 (12:32→14:09)
[2021-07-14] MEDS ORDERED: Propofol 10 MG/ML 20 ML BTL ONE (12:32)
[2021-07-14] MEDS ORDERED: Midazolam 5 mg/5 ml VIAL 1 mg/ml 5 ml VIAL (5 mg) ONE (13:22)
[2021-07-14] MEDS ORDERED: fentaNYL 100 mcg/2 ml 50 MCG/ML VIAL ONE (13:22)
[2021-07-14] MEDS ORDERED: Lidocaine 2% (CARDIAC or IV) 20 MG/ML 5 ML SYRINGE (100 MG) ONE (13:22)
[2021-07-14] MEDS ORDERED: Naloxone 0.4 mg VIAL 0.4 mg/ml 1 ml VIAL IV PRN (15:43)
[2021-07-14] MEDS ORDERED: fentaNYL 100 mcg/2 ml 50 MCG/ML VIAL IV PRN (15:43)
[2021-07-14] MEDS: cefTRIAXone 1 gm/50 mL D5W 1 GM/50 ML BAG IV SCH (16:21)
[2021-07-14 17:16] LABS: ABS Eosinophils 0.1 10^3/ul (0-0.6); ABS Lymphocytes 1.2 10^3/ul (1.0-4.8); ABS Monocytes 0.9 10^3/ul (0-0.8); ABS Neutrophils 8.2 10^3/ul (1.5-7.7); Hematocrit 20 % (42-52); Hemoglobin 7.3 g/dL (14.0-18.0); Lymphocyte % 11.1 %; Mean Corpuscular HGB Conc 36 g/dL (31-36); Mean Corpuscular Hemoglobin 37 pg (27-31); Mean Corpuscular Volume 103 fL (80-94); Mean Platelet Volume 7.2 fL (7.4-10.4); Nucleated Red Blood Cells % 0.1; Platelet Count 50 10^3/uL (150-450); Red Blood Count 1.98 10^6 /uL (4.18-5.48); Red Cell Distribution Width 23 % (10-15); White Blood Count 10.4 10^3/uL (3.5-10.8)
[2021-07-14] MEDS: Pantoprazole VIAL 40 MG VIAL IV SCH (17:28)
[2021-07-15] MEDS: Ondansetron 4 mg VIAL 2 MG/ML 2 ml VIAL IV PRN ×3 (04:02→12:25)
[2021-07-15] MEDS: Pantoprazole VIAL 40 MG VIAL IV SCH ×2 (04:02→17:32)
[2021-07-15] MEDS: Lactulose 30 ml UDC PO SCH ×5 (04:02→17:30)
[2021-07-15] MEDS: Benzocaine/Menthol LOZ MT PRN (04:16)
[2021-07-15 04:41] LABS: ABS Basophils 0.1 10^3/ul (0-0.2); ABS Eosinophils 0.1 10^3/ul (0-0.6); ABS Lymphocytes 1.7 10^3/ul (1.0-4.8); ABS Monocytes 1.1 10^3/ul (0-0.8); ABS Neutrophils 5.3 10^3/ul (1.5-7.7); Eosinophil % 1.4 %; Hematocrit 21 % (42-52); Hemoglobin 7.4 g/dL (14.0-18.0); Lymphocyte % 20.4 %; Mean Corpuscular HGB Conc 36 g/dL (31-36); Mean Corpuscular Hemoglobin 37 pg (27-31); Mean Corpuscular Volume 102 fL (80-94); Mean Platelet Volume 7.3 fL (7.4-10.4); Platelet Count 55 10^3/uL (150-450); Red Blood Count 2.01 10^6 /uL (4.18-5.48); Red Cell Distribution Width 23 % (10-15); White Blood Count 8.2 10^3/uL (3.5-10.8)
[2021-07-15 05:07] LABS: Albumin 3.4 g/dL (3.2-5.2); Albumin/Globulin Ratio 1.2 (1-3); Globulin 2.8 g/dL (2-4); Potassium 4.8 mmol/L (3.5-5.0); Total Protein 6.2 g/dL (6.4-8.9); eGFR CKD-EPI 114.9 (>60)
[2021-07-15 05:17] LABS: Magnesium 1.9 mg/dL (1.9-2.7)
[2021-07-15 06:23] LABS: Calcium 8.9 mg/dL (8.6-10.3)
[2021-07-15] MEDS: Prochlorperazine 5 mg/ml 2 ml VIAL (10 mg) IV PRN ×2 (06:27→09:15)
[2021-07-15] MEDS: FLUTICAS/UMECLI/VILANT 200-62.5-25 MDI (NF) INH SCH (08:35)
[2021-07-15] MEDS: Carbamide Peroxide 6.5% OTIC 15 ML BTL BOTH EARS SCH ×2 (08:43→21:35)
[2021-07-15] MEDS: Lidocaine PATCH 5% PATCH TRANSDERM SCH ×2 (08:44→12:29)
[2021-07-15] MEDS ORDERED: Multivitamins/Minerals TAB PO SCH (09:00)
[2021-07-15] MEDS: Ure-Na 15 GM POWD.PACK PO SCH (09:55)
[2021-07-15] MEDS: Octreotide Acetate 500 MCG in NS 0.9% 100 ml BAG 100 ML IV SCH (10:34)
[2021-07-15] MEDS: Scopolamine 1 mg/72hr PATCH TRANSDERM SCH (10:38)
[2021-07-15 12:11] LABS: Hematocrit 21 % (42-52); Hemoglobin 7.4 g/dL (14.0-18.0)
[2021-07-15 12:37] LABS: Calcium 8.9 mg/dL (8.6-10.3); Potassium 4.8 mmol/L (3.5-5.0)
[2021-07-15] MEDS ORDERED: Lactulose 300 ML for PR 200 GM/300 ML BTL PR PRN (13:00)
[2021-07-15] MEDS: cefTRIAXone 1 gm/50 mL D5W 1 GM/50 ML BAG IV SCH (14:57)
[2021-07-15] MEDS ORDERED: Morphine 2 MG/ML SYRINGE IV PRN (19:18)
[2021-07-15] MEDS ORDERED: Polyethylene Glycol 3350 17 GM PACKET PO PRN (19:18)
[2021-07-15] MEDS ORDERED: Lorazepam PYXIS KEY PRN (19:39)
[2021-07-15] MEDS: LORazepam 2 mg VIAL 1 ml IV PUSH PRN (20:23)
[2021-07-15] MEDS: Morphine 2 MG/ML SYRINGE IV PRN (21:22)
[2021-07-16] MEDS: Lactulose 30 ml UDC PO SCH ×4 (00:27→19:35)
[2021-07-16] MEDS: Octreotide Acetate 500 MCG in NS 0.9% 100 ml BAG 100 ML IV SCH (05:22)
[2021-07-16] MEDS: Morphine 2 MG/ML SYRINGE IV PRN ×4 (05:46→23:26)
[2021-07-16] MEDS: Lidocaine PATCH 5% PATCH TRANSDERM SCH (10:05)
[2021-07-16] MEDS: Prochlorperazine 5 mg/ml 2 ml VIAL (10 mg) IV PRN ×2 (12:20→18:21)
[2021-07-16 13:43] VITALS: BP 136/55
[2021-07-16] MEDS: Benzocaine/Menthol LOZ MT PRN (16:49)
[2021-07-16] MEDS: Ondansetron 4 mg VIAL 2 MG/ML 2 ml VIAL IV PRN ×2 (18:06→23:15)
[2021-07-16] MEDS: LORazepam 2 mg VIAL 1 ml IV PUSH PRN (18:17)
[2021-07-17] MEDS: Lactulose 30 ml UDC PO SCH ×4 (00:36→17:16)
[2021-07-17] MEDS: LORazepam 2 mg VIAL 1 ml IV PUSH PRN ×3 (04:22→14:08)
[2021-07-17] MEDS: Prochlorperazine 5 mg/ml 2 ml VIAL (10 mg) IV PRN ×2 (05:27→19:47)
[2021-07-17] MEDS: Lidocaine PATCH 5% PATCH TRANSDERM SCH (08:41)
[2021-07-17] MEDS: Morphine 2 MG/ML SYRINGE IV PRN ×2 (08:43→13:10)
[2021-07-17] MEDS ORDERED: Glycerin ADULT 2.4 gm SUPP PR ONE (16:14)
[2021-07-17] MEDS ORDERED: cefTRIAXone 1 gm/50 mL D5W 1 GM/50 ML BAG IV ONE (17:02)
[2021-07-18] MEDS: LORazepam 2 mg VIAL 1 ml IV PUSH PRN ×4 (00:36→22:44)
[2021-07-18] MEDS: Lactulose 30 ml UDC PO SCH ×5 (00:58→22:26)
[2021-07-18] MEDS: Morphine 2 MG/ML SYRINGE IV PRN (01:51)
[2021-07-18] MEDS: Lidocaine PATCH 5% PATCH TRANSDERM SCH (10:43)
[2021-07-18] MEDS: cefTRIAXone 1 gm/50 mL D5W 1 GM/50 ML BAG IV SCH (10:51)
[2021-07-18] MEDS: Scopolamine 1 mg/72hr PATCH TRANSDERM SCH (10:51)
[2021-07-18] MEDS: Prochlorperazine 5 mg/ml 2 ml VIAL (10 mg) IV PRN (20:34)
[2021-07-19] MEDS: LORazepam 2 mg VIAL 1 ml IV PUSH PRN ×2 (01:25→07:44)
[2021-07-19] MEDS: Morphine 2 MG/ML SYRINGE IV PRN ×2 (02:39→11:40)
[2021-07-19] MEDS: Lactulose 30 ml UDC PO SCH ×4 (05:34→22:05)
[2021-07-19] MEDS: Lidocaine PATCH 5% PATCH TRANSDERM SCH (07:44)
[2021-07-19] MEDS: cefTRIAXone 1 gm/50 mL D5W 1 GM/50 ML BAG IV SCH (09:36)
[2021-07-20] MEDS: Prochlorperazine 5 mg/ml 2 ml VIAL (10 mg) IV PRN ×3 (00:13→21:24)
[2021-07-20] MEDS: Lactulose 30 ml UDC PO SCH ×5 (00:17→23:07)
[2021-07-20] MEDS: cefTRIAXone 1 gm/50 mL D5W 1 GM/50 ML BAG IV SCH (09:32)
[2021-07-20] MEDS: Lidocaine PATCH 5% PATCH TRANSDERM SCH (09:32)
[2021-07-20] MEDS: Ondansetron 4 mg VIAL 2 MG/ML 2 ml VIAL IV PRN (17:50)
[2021-07-20] MEDS: Morphine 2 MG/ML SYRINGE IV PRN (17:50)
[2021-07-21] MEDS: Morphine 2 MG/ML SYRINGE IV PRN (04:13)
[2021-07-21] MEDS: Ondansetron 4 mg VIAL 2 MG/ML 2 ml VIAL IV PRN (04:32)
[2021-07-21] MEDS: Lactulose 30 ml UDC PO SCH (06:20)
[2021-07-21] MEDS: Lidocaine PATCH 5% PATCH TRANSDERM SCH (08:53)
[2021-07-21] MEDS: Scopolamine 1 mg/72hr PATCH TRANSDERM SCH (08:54)
[2021-07-21 10:24] LABS: Rapid COVID-19 Molecular Undetected (Undetected)
== END 2021-07-21 15:45 | DRG 264 ==
LOC: ED 09:54 → SUATTDRO 17:27 → EDHOLD 17:27 → ICU 19:45 → SSU 06-19 12:18 → MED 07-08 20:02 → ICU 07-14 11:25 → UNDODISIN 07-14 14:22 → MED 07-16 09:43
PROVIDERS: ADMIT Surgery Surgical Critical Care; ATTEND Internal Medicine
PROC: O.GIEGD (2021-07-14 13:40)

== ENCOUNTER 2021-08-07 06:22 | Inpatient (IN) ==
[2021-08-07 07:50] LABS: ABS Eosinophils 0.3 10^3/ul (0-0.6); ABS Lymphocytes 1.2 10^3/ul (1.0-4.8); ABS Monocytes 1.2 10^3/ul (0-0.8); ABS Neutrophils 5.3 10^3/ul (1.5-7.7); Eosinophil % 3.3 %; Hematocrit 22 % (42-52); Hemoglobin 7.7 g/dL (14.0-18.0); Lymphocyte % 15.4 %; Mean Corpuscular HGB Conc 35 g/dL (31-36); Mean Corpuscular Hemoglobin 36 pg (27-31); Mean Corpuscular Volume 102 fL (80-94); Mean Platelet Volume 7.2 fL (7.4-10.4); Platelet Count 84 10^3/uL (150-450); Red Blood Count 2.15 10^6 /uL (4.18-5.48); Red Cell Distribution Width 17 % (10-15)
[2021-08-07 08:34] LABS: INR 2.92 (0.86-1.15)
[2021-08-07 08:34] LABS: Albumin 2.7 g/dL (3.2-5.2); Blood Urea Nitrogen 16 mg/dL (6-24); CO2 Carbon Dioxide 26 mmol/L (22-32); Calcium 8.1 mg/dL (8.6-10.3); Chloride 90 mmol/L (101-111); Glucose 98 mg/dL (70-100); Magnesium 1.9 mg/dL (1.9-2.7); Potassium 4.4 mmol/L (3.5-5.0); Total Protein 5.4 g/dL (6.4-8.9); eGFR CKD-EPI 109.8 (>60)
[2021-08-07 08:35] LABS: ALT 28 U/L (7-52); AST 61 U/L (13-39); Alcohol, S < 13 mg/dL (<13); Alkaline Phosphatase 194 U/L (35-149); Globulin 2.7 g/dL (2-4)
[2021-08-07 08:35] LABS: Activated Partial Thrombo Time 38.3 seconds (26.0-38.0)
[2021-08-07 08:39] LABS: Urine Appearance Clear; Urine Bilirubin Negative (Negative); Urine Blood Negative (Negative); Urine Color Amber; Urine Glucose Negative (Negative); Urine Ketones Negative (Negative); Urine Nitrite Negative (Negative); Urine Protein Negative (Negative); Urine Specific Gravity 1.013 (1.002-1.030); Urine Urobilinogen Negative (Negative)
[2021-08-07 08:40] LABS: Anion Gap 3 mmol/L (2-11); Sodium 119 mmol/L (135-145)
[2021-08-07 08:50] LABS: Urine Bacteria 1+ (Absent); Urine Red Blood Cell Trace(0-2/hpf) (Absent); Urine White Blood Cell 3+(>20/hpf) (Absent)
[2021-08-07] MEDS: Mometasone 220 MCG MDI INH SCH (21:31)
[2021-08-08] MEDS: Nystatin TOP POWDER 15 GM BTL TOPICAL SCH ×3 (06:18→21:03)
[2021-08-08] MEDS: Potassium Chloride LIQUID 20 MEQ/15 ML LIQUID PO SCH (07:48)
[2021-08-08 07:49] LABS: ABS Eosinophils 0.1 10^3/ul (0-0.6); ABS Neutrophils 3.6 10^3/ul (1.5-7.7); Eosinophil % 1.7 %; Hematocrit 22 % (42-52); Hemoglobin 7.6 g/dL (14.0-18.0); Lymphocyte % 16.8 %; Mean Corpuscular HGB Conc 34 g/dL (31-36); Mean Corpuscular Hemoglobin 35 pg (27-31); Mean Corpuscular Volume 101 fL (80-94); Mean Platelet Volume 7.3 fL (7.4-10.4); Platelet Count 71 10^3/uL (150-450); Red Blood Count 2.18 10^6 /uL (4.18-5.48); Red Cell Distribution Width 17 % (10-15); White Blood Count 5.7 10^3/uL (3.5-10.8)
[2021-08-08] MEDS: Albuterol HFA INHALER 8 gm MDI INH PRN ×2 (08:23→21:01)
[2021-08-08] MEDS: Tiotropium Brom/Olodaterol MDI INH SCH (08:26)
[2021-08-08] MEDS: Mometasone 220 MCG MDI INH SCH ×2 (08:28→20:57)
[2021-08-08 08:31] LABS: Anion Gap 8 mmol/L (2-11); Blood Urea Nitrogen 16 mg/dL (6-24); CO2 Carbon Dioxide 24 mmol/L (22-32); Calcium 7.7 mg/dL (8.6-10.3); Chloride 94 mmol/L (101-111); Glucose 124 mg/dL (70-100); Magnesium 1.7 mg/dL (1.9-2.7); Potassium 3.5 mmol/L (3.5-5.0); Sodium 126 mmol/L (135-145); eGFR CKD-EPI 110.3 (>60)
[2021-08-08 08:54] LABS: Vitamin B12 > 1450 pg/mL (180-914)
[2021-08-08] MEDS ORDERED: FLUTICAS/UMECLI/VILANT 200-62.5-25 MDI (NF) INH SCH (09:00)
[2021-08-08] MEDS ORDERED: Magnesium Sulfate 2 gm BAG 2 GM/50 ML BAG IVPB ONE (09:05)
[2021-08-08] MEDS ORDERED: Lactulose 30 ml UDC ONE (11:42)
[2021-08-08] MEDS: Lactulose 30 ml UDC PO SCH ×3 (11:47→22:51)
[2021-08-08] MEDS: Heparin 5000 UNITS/ML 1 mL VIAL SUBCUT SCH (21:01)
[2021-08-08 23:46] LABS: Hepatitis B Surface Antigen Nonreactive (Nonreactive)
[2021-08-08 23:52] LABS: Hepatitis A Ab IgM Negative (Negative); Hepatitis B Core IgM Nonreactive (Nonreactive)
[2021-08-09 00:04] LABS: Hepatitis C Antibody Negative (Negative)
[2021-08-09 05:30] LABS: ABS Eosinophils 0.1 10^3/ul (0-0.6); ABS Neutrophils 3.4 10^3/ul (1.5-7.7); Eosinophil % 1.5 %; Hematocrit 22 % (42-52); Hemoglobin 7.5 g/dL (14.0-18.0); Lymphocyte % 18.8 %; Mean Corpuscular HGB Conc 34 g/dL (31-36); Mean Corpuscular Hemoglobin 34 pg (27-31); Mean Corpuscular Volume 99 fL (80-94); Mean Platelet Volume 7.2 fL (7.4-10.4); Nucleated Red Blood Cells % 0.1; Platelet Count 69 10^3/uL (150-450); Red Blood Count 2.22 10^6 /uL (4.18-5.48); Red Cell Distribution Width 16 % (10-15); White Blood Count 5.5 10^3/uL (3.5-10.8)
[2021-08-09] MEDS: Lactulose 30 ml UDC PO SCH ×4 (06:17→22:26)
[2021-08-09 06:24] LABS: Calcium 7.3 mg/dL (8.6-10.3); Magnesium 1.5 mg/dL (1.9-2.7); Potassium 2.9 mmol/L (3.5-5.0); eGFR CKD-EPI 115.9 (>60)
[2021-08-09] MEDS: KCL 20 MEQ/100 ML IVPREMIX 20 MEQ/100 ML BAG IV SCH ×3 (08:39→16:14)
[2021-08-09] MEDS: Potassium Chloride LIQUID 20 MEQ/15 ML LIQUID PO SCH (08:40)
[2021-08-09] MEDS: Heparin 5000 UNITS/ML 1 mL VIAL SUBCUT SCH ×2 (08:41→21:49)
[2021-08-09] MEDS: Nystatin TOP POWDER 15 GM BTL TOPICAL SCH ×2 (08:42→21:49)
[2021-08-09] MEDS ORDERED: Magnesium Sulf 4 GM/100 ML IV 4,000 MG/100 ML BAG IVPB ONE (09:00)
[2021-08-09] MEDS: Tiotropium Brom/Olodaterol MDI INH SCH (09:39)
[2021-08-09] MEDS: Mometasone 220 MCG MDI INH SCH ×2 (09:42→19:06)
[2021-08-09] MEDS: Ondansetron 4 mg VIAL 2 MG/ML 2 ml VIAL IV PRN (10:24)
[2021-08-09] MEDS ORDERED: KCL 20 MEQ/100 ML IVPREMIX 20 MEQ/100 ML BAG ONE (16:09)
[2021-08-10] MEDS: Lactulose 30 ml UDC PO SCH ×4 (06:03→21:42)
[2021-08-10 06:13] LABS: ABS Basophils 0.1 10^3/ul (0-0.2); ABS Eosinophils 0.1 10^3/ul (0-0.6); ABS Lymphocytes 1.3 10^3/ul (1.0-4.8); ABS Neutrophils 4.2 10^3/ul (1.5-7.7); Hematocrit 22 % (42-52); Hemoglobin 7.4 g/dL (14.0-18.0); Lymphocyte % 19.1 %; Mean Corpuscular HGB Conc 34 g/dL (31-36); Mean Corpuscular Hemoglobin 34 pg (27-31); Mean Corpuscular Volume 99 fL (80-94); Mean Platelet Volume 7.3 fL (7.4-10.4); Platelet Count 64 10^3/uL (150-450); Red Cell Distribution Width 17 % (10-15); White Blood Count 6.6 10^3/uL (3.5-10.8)
[2021-08-10 06:58] LABS: Calcium 7.6 mg/dL (8.6-10.3); Potassium 3.2 mmol/L (3.5-5.0); eGFR CKD-EPI 109.4 (>60)
[2021-08-10] MEDS: Tiotropium Brom/Olodaterol MDI INH SCH (08:04)
[2021-08-10] MEDS: Albuterol HFA INHALER 8 gm MDI INH PRN ×2 (08:04→19:21)
[2021-08-10] MEDS: Mometasone 220 MCG MDI INH SCH ×2 (08:05→19:21)
[2021-08-10] MEDS: Ondansetron 4 mg VIAL 2 MG/ML 2 ml VIAL IV PRN ×2 (08:08→19:46)
[2021-08-10] MEDS: Potassium Chlor 20 meq TAB.ER PO SCH (08:09)
[2021-08-10] MEDS: Heparin 5000 UNITS/ML 1 mL VIAL SUBCUT SCH ×2 (08:10→19:46)
[2021-08-10] MEDS: Nystatin TOP POWDER 15 GM BTL TOPICAL SCH ×2 (08:10→19:51)
[2021-08-10] MEDS: KCL 20 MEQ/100 ML IVPREMIX 20 MEQ/100 ML BAG IV SCH ×3 (08:16→17:13)
[2021-08-10] MEDS: Morphine 2 MG/ML SYRINGE IV PRN (20:35)
[2021-08-11] MEDS: Morphine 2 MG/ML SYRINGE IV PRN ×3 (03:00→17:20)
[2021-08-11] MEDS: Lactulose 30 ml UDC PO SCH ×4 (06:07→22:54)
[2021-08-11] MEDS: Ondansetron 4 mg VIAL 2 MG/ML 2 ml VIAL IV PRN ×2 (06:08→14:11)
[2021-08-11] MEDS: Potassium Chlor 20 meq TAB.ER PO SCH (08:03)
[2021-08-11] MEDS: Heparin 5000 UNITS/ML 1 mL VIAL SUBCUT SCH ×2 (08:03→19:26)
[2021-08-11] MEDS: Tiotropium Brom/Olodaterol MDI INH SCH (08:10)
[2021-08-11] MEDS: Mometasone 220 MCG MDI INH SCH ×2 (08:10→19:26)
[2021-08-11] MEDS: Nystatin TOP POWDER 15 GM BTL TOPICAL SCH ×2 (09:00→19:27)
[2021-08-11 10:18] LABS: ABS Basophils 0.1 10^3/ul (0-0.2); ABS Lymphocytes 1.1 10^3/ul (1.0-4.8); ABS Monocytes 0.8 10^3/ul (0-0.8); ABS Neutrophils 5.2 10^3/ul (1.5-7.7); Eosinophil % 0.6 %; Hematocrit 24 % (42-52); Hemoglobin 7.9 g/dL (14.0-18.0); Lymphocyte % 15.3 %; Mean Corpuscular HGB Conc 34 g/dL (31-36); Mean Corpuscular Hemoglobin 33 pg (27-31); Mean Corpuscular Volume 99 fL (80-94); Mean Platelet Volume 7.5 fL (7.4-10.4); Nucleated Red Blood Cells % 0.1; Platelet Count 68 10^3/uL (150-450); Red Blood Count 2.38 10^6 /uL (4.18-5.48); Red Cell Distribution Width 16 % (10-15); White Blood Count 7.1 10^3/uL (3.5-10.8)
[2021-08-11 10:19] LABS: INR 2.63 (0.86-1.15)
[2021-08-11 10:49] LABS: Albumin 2.8 g/dL (3.2-5.2); Albumin/Globulin Ratio 0.9 (1-3); Calcium 7.7 mg/dL (8.6-10.3); Magnesium 1.7 mg/dL (1.9-2.7); Potassium 3.5 mmol/L (3.5-5.0); Total Protein 5.8 g/dL (6.4-8.9)
[2021-08-11] MEDS ORDERED: Magnesium Sulfate 2 gm BAG 2 GM/50 ML BAG IVPB ONE (11:52)
[2021-08-11] MEDS ORDERED: Iohexol 350 (CONTRAST) 500 ML MDV IV ONE (13:23)
[2021-08-11] MEDS: Linezolid 600 MG IVPREMIX(*) 600 MG/300 ML BAG IVPB SCH (18:31)
[2021-08-11] MEDS: Albuterol HFA INHALER 8 gm MDI INH PRN (19:30)
[2021-08-12] MEDS: Lactulose 30 ml UDC PO SCH ×4 (05:53→22:00)
[2021-08-12] MEDS: Ondansetron 4 mg VIAL 2 MG/ML 2 ml VIAL IV PRN ×2 (05:53→22:00)
[2021-08-12] MEDS: Linezolid 600 MG IVPREMIX(*) 600 MG/300 ML BAG IVPB SCH ×2 (05:54→17:55)
[2021-08-12] MEDS: Heparin 5000 UNITS/ML 1 mL VIAL SUBCUT SCH ×2 (07:46→19:53)
[2021-08-12] MEDS: Potassium Chlor 20 meq TAB.ER PO SCH (07:47)
[2021-08-12] MEDS: Nystatin TOP POWDER 15 GM BTL TOPICAL SCH ×2 (07:51→19:53)
[2021-08-12] MEDS: Tiotropium Brom/Olodaterol MDI INH SCH (08:14)
[2021-08-12] MEDS: Mometasone 220 MCG MDI INH SCH ×3 (08:14→19:28)
[2021-08-12 08:43] LABS: Albumin 2.8 g/dL (3.2-5.2); Calcium 7.8 mg/dL (8.6-10.3); Globulin 2.9 g/dL (2-4); Potassium 3.5 mmol/L (3.5-5.0); Total Bilirubin 7.2 mg/dL (0.2-1.0); Total Protein 5.7 g/dL (6.4-8.9); eGFR CKD-EPI 100.6 (>60)
[2021-08-12 08:56] LABS: ABS Lymphocytes 1.1 10^3/ul (1.0-4.8); ABS Neutrophils 6.4 10^3/ul (1.5-7.7); Eosinophil % 0.4 %; Hematocrit 24 % (42-52); Hemoglobin 7.9 g/dL (14.0-18.0); Lymphocyte % 13.2 %; Mean Corpuscular HGB Conc 33 g/dL (31-36); Mean Corpuscular Hemoglobin 33 pg (27-31); Mean Corpuscular Volume 99 fL (80-94); Mean Platelet Volume 7.8 fL (7.4-10.4); Platelet Count 74 10^3/uL (150-450); Red Blood Count 2.38 10^6 /uL (4.18-5.48); Red Cell Distribution Width 16 % (10-15); White Blood Count 8.5 10^3/uL (3.5-10.8)
[2021-08-12] MEDS: Albuterol HFA INHALER 8 gm MDI INH PRN (19:22)
[2021-08-13] MEDS: Lactulose 30 ml UDC PO SCH ×5 (05:54→21:52)
[2021-08-13] MEDS: Linezolid 600 MG IVPREMIX(*) 600 MG/300 ML BAG IVPB SCH ×2 (05:55→18:18)
[2021-08-13] MEDS: Tiotropium Brom/Olodaterol MDI INH SCH (07:37)
[2021-08-13] MEDS: Mometasone 220 MCG MDI INH SCH ×2 (07:37→19:32)
[2021-08-13] MEDS: Albuterol HFA INHALER 8 gm MDI INH PRN ×2 (07:41→19:32)
[2021-08-13 08:15] LABS: ABS Lymphocytes 0.9 10^3/ul (1.0-4.8); ABS Monocytes 0.8 10^3/ul (0-0.8); ABS Neutrophils 4.1 10^3/ul (1.5-7.7); Eosinophil % 0.4 %; Hematocrit 21 % (42-52); Hemoglobin 7.3 g/dL (14.0-18.0); Mean Corpuscular HGB Conc 34 g/dL (31-36); Mean Corpuscular Hemoglobin 34 pg (27-31); Mean Corpuscular Volume 99 fL (80-94); Mean Platelet Volume 7.4 fL (7.4-10.4); Platelet Count 65 10^3/uL (150-450); Red Blood Count 2.16 10^6 /uL (4.18-5.48); Red Cell Distribution Width 17 % (10-15); White Blood Count 5.7 10^3/uL (3.5-10.8)
[2021-08-13] MEDS: Heparin 5000 UNITS/ML 1 mL VIAL SUBCUT SCH ×2 (08:21→21:54)
[2021-08-13] MEDS: Potassium Chlor 20 meq TAB.ER PO SCH (08:22)
[2021-08-13 08:35] LABS: ALT 32 U/L (7-52); AST 52 U/L (13-39); Albumin 2.6 g/dL (3.2-5.2); Albumin/Globulin Ratio 0.9 (1-3); Alkaline Phosphatase 173 U/L (35-149); Anion Gap 5 mmol/L (2-11); Blood Urea Nitrogen 15 mg/dL (6-24); CO2 Carbon Dioxide 28 mmol/L (22-32); Calcium 7.8 mg/dL (8.6-10.3); Chloride 93 mmol/L (101-111); Globulin 2.9 g/dL (2-4); Glucose 126 mg/dL (70-100); Potassium 3.6 mmol/L (3.5-5.0); Sodium 126 mmol/L (135-145); Total Protein 5.5 g/dL (6.4-8.9); eGFR CKD-EPI 109.4 (>60)
[2021-08-13] MEDS: Nystatin TOP POWDER 15 GM BTL TOPICAL SCH ×2 (11:37→21:54)
[2021-08-13 16:30] LABS: % Iron Saturation 15 % (15-55); Iron 41 ug/dL (50-212); Total Iron Binding Capacity 274 mcg/dL (250-450); Transferrin 196 mg/dL (203-362); Unsaturated Iron Binding 233 ug/dL
[2021-08-13 16:52] LABS: Ferritin 48.1 ng/mL (24-336)
[2021-08-13 16:56] LABS: Folate > 20.00 ng/mL (5.90-24.80); Vitamin B12 > 1450 pg/mL (180-914)
[2021-08-14 05:57] LABS: ABS Lymphocytes 1.1 10^3/ul (1.0-4.8); ABS Monocytes 0.7 10^3/ul (0-0.8); ABS Neutrophils 4.7 10^3/ul (1.5-7.7); Eosinophil % 0.7 %; Hematocrit 23 % (42-52); Hemoglobin 7.6 g/dL (14.0-18.0); Lymphocyte % 17.1 %; Mean Corpuscular HGB Conc 33 g/dL (31-36); Mean Corpuscular Hemoglobin 33 pg (27-31); Mean Corpuscular Volume 99 fL (80-94); Mean Platelet Volume 7.6 fL (7.4-10.4); Platelet Count 71 10^3/uL (150-450); Red Blood Count 2.32 10^6 /uL (4.18-5.48); Red Cell Distribution Width 17 % (10-15); White Blood Count 6.7 10^3/uL (3.5-10.8)
[2021-08-14 05:59] LABS: INR 2.44 (0.86-1.15); Protime (Maddrey) 27.1 seconds (9.5-12.8)
[2021-08-14] MEDS: Linezolid 600 MG IVPREMIX(*) 600 MG/300 ML BAG IVPB SCH ×2 (06:06→17:43)
[2021-08-14] MEDS: Lactulose 30 ml UDC PO SCH ×4 (06:08→21:05)
[2021-08-14 06:29] LABS: Albumin 2.7 g/dL (3.2-5.2); Albumin/Globulin Ratio 0.9 (1-3); Potassium 3.7 mmol/L (3.5-5.0); Total Bilirubin 6.8 mg/dL (0.2-1.0); Total Protein 5.7 g/dL (6.4-8.9); eGFR CKD-EPI 85.2 (>60)
[2021-08-14 06:33] LABS: Total Bilirubin 6.8 mg/dL (0.2-1.0)
[2021-08-14] MEDS: Mometasone 220 MCG MDI INH SCH ×2 (07:15→19:11)
[2021-08-14] MEDS: Tiotropium Brom/Olodaterol MDI INH SCH (07:20)
[2021-08-14] MEDS: Bumetanide IV 0.25 MG/ML 4 ml VIAL (1 mg) SLOW PUSH SCH ×2 (09:10→20:19)
[2021-08-14] MEDS: Potassium Chlor 20 meq TAB.ER PO SCH (09:11)
[2021-08-14] MEDS: Heparin 5000 UNITS/ML 1 mL VIAL SUBCUT SCH ×2 (09:11→20:19)
[2021-08-14] MEDS: Nystatin TOP POWDER 15 GM BTL TOPICAL SCH ×2 (10:31→20:18)
[2021-08-14] MEDS ORDERED: Saliva Substitute (NF) 1 SPRAY BTL MT PRN (10:36)
[2021-08-14] MEDS ORDERED: [UNRECOGNIZED DRUG - REMARK] MT SCH (11:00)
[2021-08-14 12:36] LABS: C Reactive Protein 8.54 mg/L (<8.01)
[2021-08-14 13:38] LABS: Erythrocyte Sed Rate 21 mm/Hr (0-14)
[2021-08-14 14:45] LABS: Potassium 3.5 mmol/L (3.5-5.0); eGFR CKD-EPI 93.4 (>60)
[2021-08-15] MEDS: Lactulose 30 ml UDC PO SCH ×4 (05:18→21:13)
[2021-08-15] MEDS: Linezolid 600 MG IVPREMIX(*) 600 MG/300 ML BAG IVPB SCH ×2 (05:18→17:33)
[2021-08-15] MEDS: Albuterol HFA INHALER 8 gm MDI INH PRN (07:46)
[2021-08-15] MEDS: Tiotropium Brom/Olodaterol MDI INH SCH (07:47)
[2021-08-15] MEDS: Mometasone 220 MCG MDI INH SCH ×2 (07:47→19:05)
[2021-08-15 08:34] LABS: ABS Eosinophils 0.1 10^3/ul (0-0.6); ABS Lymphocytes 1.3 10^3/ul (1.0-4.8); ABS Monocytes 1.1 10^3/ul (0-0.8); ABS Neutrophils 4.7 10^3/ul (1.5-7.7); Hematocrit 24 % (42-52); Hemoglobin 8.1 g/dL (14.0-18.0); Lymphocyte % 17.7 %; Mean Corpuscular HGB Conc 34 g/dL (31-36); Mean Corpuscular Hemoglobin 33 pg (27-31); Mean Corpuscular Volume 98 fL (80-94); Mean Platelet Volume 7.6 fL (7.4-10.4); Platelet Count 82 10^3/uL (150-450); Red Blood Count 2.48 10^6 /uL (4.18-5.48); Red Cell Distribution Width 16 % (10-15); White Blood Count 7.2 10^3/uL (3.5-10.8)
[2021-08-15] MEDS: Potassium Chlor 20 meq TAB.ER PO SCH (08:43)
[2021-08-15] MEDS: Heparin 5000 UNITS/ML 1 mL VIAL SUBCUT SCH ×2 (08:44→21:14)
[2021-08-15] MEDS: Bumetanide IV 0.25 MG/ML 4 ml VIAL (1 mg) SLOW PUSH SCH (08:44)
[2021-08-15 09:02] LABS: Calcium 8.1 mg/dL (8.6-10.3); Potassium 3.5 mmol/L (3.5-5.0); eGFR CKD-EPI 87.1 (>60)
[2021-08-15] MEDS: Nystatin TOP POWDER 15 GM BTL TOPICAL SCH ×2 (10:44→21:16)
[2021-08-15] MEDS: Ondansetron 4 mg VIAL 2 MG/ML 2 ml VIAL IV PRN (12:07)
[2021-08-15 12:56] LABS: Magnesium 1.8 mg/dL (1.9-2.7)
[2021-08-15] MEDS ORDERED: Magnesium Sulfate 2 gm BAG 2 GM/50 ML BAG IVPB ONE (15:57)
[2021-08-16] MEDS: Linezolid 600 MG IVPREMIX(*) 600 MG/300 ML BAG IVPB SCH ×2 (05:10→18:22)
[2021-08-16 05:31] LABS: ABS Eosinophils 0.1 10^3/ul (0-0.6); ABS Lymphocytes 1.1 10^3/ul (1.0-4.8); ABS Monocytes 0.7 10^3/ul (0-0.8); ABS Neutrophils 3.6 10^3/ul (1.5-7.7); Eosinophil % 1.1 %; Hematocrit 21 % (42-52); Hemoglobin 7.3 g/dL (14.0-18.0); Lymphocyte % 19.7 %; Mean Corpuscular HGB Conc 34 g/dL (31-36); Mean Corpuscular Hemoglobin 34 pg (27-31); Mean Corpuscular Volume 99 fL (80-94); Mean Platelet Volume 7.6 fL (7.4-10.4); Platelet Count 65 10^3/uL (150-450); Red Blood Count 2.15 10^6 /uL (4.18-5.48); Red Cell Distribution Width 17 % (10-15); White Blood Count 5.5 10^3/uL (3.5-10.8)
[2021-08-16 06:02] LABS: Calcium 7.7 mg/dL (8.6-10.3); Potassium 3.8 mmol/L (3.5-5.0); eGFR CKD-EPI 86.1 (>60)
[2021-08-16] MEDS: Lactulose 30 ml UDC PO SCH ×3 (08:19→20:58)
[2021-08-16] MEDS: Potassium Chlor 20 meq TAB.ER PO SCH (08:19)
[2021-08-16] MEDS: Mometasone 220 MCG MDI INH SCH ×2 (09:11→19:35)
[2021-08-16] MEDS: Tiotropium Brom/Olodaterol MDI INH SCH (09:12)
[2021-08-16] MEDS: Albuterol HFA INHALER 8 gm MDI INH PRN (09:14)
[2021-08-16] MEDS: Heparin 5000 UNITS/ML 1 mL VIAL SUBCUT SCH ×2 (09:22→21:12)
[2021-08-16] MEDS: Nystatin TOP POWDER 15 GM BTL TOPICAL SCH ×2 (09:22→21:00)
[2021-08-16 20:48] LABS: Hematocrit 24 % (42-52); Hemoglobin 7.9 g/dL (14.0-18.0); Mean Corpuscular HGB Conc 33 g/dL (31-36); Mean Corpuscular Hemoglobin 32 pg (27-31); Mean Corpuscular Volume 98 fL (80-94); Mean Platelet Volume 7.4 fL (7.4-10.4); Platelet Count 85 10^3/uL (150-450); Red Blood Count 2.44 10^6 /uL (4.18-5.48); Red Cell Distribution Width 17 % (10-15); White Blood Count 7.1 10^3/uL (3.5-10.8)
[2021-08-17 05:24] LABS: ABS Eosinophils 0.1 10^3/ul (0-0.6); ABS Lymphocytes 1.1 10^3/ul (1.0-4.8); ABS Monocytes 0.7 10^3/ul (0-0.8); ABS Neutrophils 4.1 10^3/ul (1.5-7.7); Eosinophil % 2.1 %; Hematocrit 23 % (42-52); Hemoglobin 7.6 g/dL (14.0-18.0); Lymphocyte % 18.5 %; Mean Corpuscular HGB Conc 33 g/dL (31-36); Mean Corpuscular Hemoglobin 33 pg (27-31); Mean Corpuscular Volume 98 fL (80-94); Mean Platelet Volume 7.6 fL (7.4-10.4); Platelet Count 65 10^3/uL (150-450); Red Blood Count 2.33 10^6 /uL (4.18-5.48); Red Cell Distribution Width 17 % (10-15)
[2021-08-17 05:34] LABS: Albumin 2.6 g/dL (3.2-5.2); Albumin/Globulin Ratio 0.9 (1-3); Calcium 7.9 mg/dL (8.6-10.3); Potassium 3.9 mmol/L (3.5-5.0); Total Bilirubin 7.3 mg/dL (0.2-1.0); Total Protein 5.6 g/dL (6.4-8.9); eGFR CKD-EPI 96.9 (>60)
[2021-08-17] MEDS: Linezolid 600 MG IVPREMIX(*) 600 MG/300 ML BAG IVPB SCH (05:43)
[2021-08-17] MEDS: Albuterol HFA INHALER 8 gm MDI INH PRN (07:56)
[2021-08-17] MEDS: Tiotropium Brom/Olodaterol MDI INH SCH (07:56)
[2021-08-17] MEDS: Mometasone 220 MCG MDI INH SCH (07:59)
[2021-08-17 08:13] VITALS: BP 128/46
[2021-08-17] MEDS: Potassium Chlor 20 meq TAB.ER PO SCH (09:12)
[2021-08-17] MEDS: Heparin 5000 UNITS/ML 1 mL VIAL SUBCUT SCH (09:13)
[2021-08-17] MEDS: Nystatin TOP POWDER 15 GM BTL TOPICAL SCH (09:14)
[2021-08-17] MEDS: Lactulose 30 ml UDC PO SCH (09:14)
== END 2021-08-17 09:45 | DRG 425 ==
LOC: ED 06:22 → INTOOBSV 10:00 → EDHOLD 10:00 → MED 18:59 → UNDODISIN 23:51 → SUATTDRO 08-09 12:57
PROVIDERS: ADMIT Internal Medicine; ATTEND Internal Medicine

== ENCOUNTER 2021-09-12 11:20 | Inpatient (IN) ==
[2021-09-12 12:28] LABS: Hematocrit 24 % (42-52); Hemoglobin 8.3 g/dL (14.0-18.0); INR 2.42 (0.89-1.11); Mean Corpuscular HGB Conc 35 g/dL (31-36); Mean Corpuscular Hemoglobin 33 pg (27-31); Mean Corpuscular Volume 92 fL (80-94); Red Blood Count 2.56 10^6 /uL (4.18-5.48); Red Cell Distribution Width 21 % (10-15); White Blood Count 5.5 10^3/uL (3.5-10.8)
[2021-09-12 13:02] LABS: Albumin/Globulin Ratio 0.9 (1-3); Calcium 7.8 mg/dL (8.6-10.3); Globulin 3.4 g/dL (2-4); Potassium 3.8 mmol/L (3.5-5.0); Total Protein 6.4 g/dL (6.4-8.9)
[2021-09-12 13:06] LABS: Anisocytosis 1+; Polychromasia 1+
[2021-09-12 13:07] LABS: Acanthocytes 1+
[2021-09-12 13:08] LABS: ABS Eosinophils 0.1 10^3/ul (0-0.6); ABS Lymphocytes 1.1 10^3/ul (1.0-4.8); ABS Monocytes 0.6 10^3/ul (0-0.8); ABS Neutrophils 3.6 10^3/ul (1.5-7.7); Eosinophil % 2.5 %; Lymphocyte % 20.8 %; Mean Platelet Volume 7.9 fL (7.4-10.4); Nucleated Red Blood Cells % 0.1; Platelet Count 26 10^3/uL (150-450)
[2021-09-12 13:13] LABS: Total Bilirubin 12.2 mg/dL (0.2-1.0)
[2021-09-12] MEDS ORDERED: Furosemide 40 mg/4 ml IV VIAL IV SLOW PU ONE (15:15)
[2021-09-12 16:22] LABS: C Reactive Protein 11.45 mg/L (<8.01)
[2021-09-12] MEDS: FLUTICAS/UMECLI/VILANT 200-62.5-25 MDI (NF) INH SCH (17:47)
[2021-09-12 18:13] LABS: Hematocrit 24 % (42-52); Hemoglobin 8.3 g/dL (14.0-18.0); Mean Corpuscular HGB Conc 34 g/dL (31-36); Mean Corpuscular Hemoglobin 31 pg (27-31); Mean Corpuscular Volume 92 fL (80-94); Mean Platelet Volume 6.8 fL (7.4-10.4); Platelet Count 53 10^3/uL (150-450); Red Blood Count 2.65 10^6 /uL (4.18-5.48); Red Cell Distribution Width 21 % (10-15); White Blood Count 6.5 10^3/uL (3.5-10.8)
[2021-09-12 19:48] LABS: ABS Eosinophils 0.1 10^3/ul (0-0.6); ABS Lymphocytes 0.6 10^3/ul (1.0-4.8); ABS Monocytes 1.1 10^3/ul (0-0.8); ABS Neutrophils 4.7 10^3/ul (1.5-7.7); Eosinophil % 1.7 %; Lymphocyte % 8.6 %; Nucleated Red Blood Cells % 0.1
[2021-09-12] MEDS: Albuterol HFA INHALER 8 gm MDI INH PRN (20:38)
[2021-09-12] MEDS: Nystatin TOP POWDER 15 GM BTL TOPICAL SCH (21:28)
[2021-09-12] MEDS: Ondansetron ODT 4 mg TAB 4 MG TAB PO PRN (22:49)
[2021-09-13] MEDS: Albuterol HFA INHALER 8 gm MDI INH PRN ×2 (05:48→08:05)
[2021-09-13 06:05] LABS: ABS Basophils 0.1 10^3/ul (0-0.2); ABS Eosinophils 0.2 10^3/ul (0-0.6); ABS Lymphocytes 0.5 10^3/ul (1.0-4.8); ABS Neutrophils 4.2 10^3/ul (1.5-7.7); Eosinophil % 2.7 %; Hematocrit 23 % (42-52); Hemoglobin 7.7 g/dL (14.0-18.0); Lymphocyte % 8.8 %; Mean Corpuscular HGB Conc 34 g/dL (31-36); Mean Corpuscular Hemoglobin 32 pg (27-31); Mean Corpuscular Volume 92 fL (80-94); Mean Platelet Volume 6.7 fL (7.4-10.4); Nucleated Red Blood Cells % 0.1; Platelet Count 44 10^3/uL (150-450); Red Blood Count 2.44 10^6 /uL (4.18-5.48); Red Cell Distribution Width 21 % (10-15)
[2021-09-13 06:29] LABS: Albumin 2.8 g/dL (3.2-5.2); Albumin/Globulin Ratio 0.9 (1-3); Calcium 7.9 mg/dL (8.6-10.3); Potassium 3.9 mmol/L (3.5-5.0); Total Bilirubin 11.1 mg/dL (0.2-1.0); Total Protein 5.8 g/dL (6.4-8.9); eGFR CKD-EPI 103.2 (>60)
[2021-09-13 06:30] LABS: Magnesium 1.9 mg/dL (1.9-2.7)
[2021-09-13] MEDS: Furosemide 40 mg/4 ml IV VIAL IV SLOW PU SCH ×2 (07:59→17:20)
[2021-09-13] MEDS: FLUTICAS/UMECLI/VILANT 200-62.5-25 MDI (NF) INH SCH (08:04)
[2021-09-13] MEDS: Ondansetron ODT 4 mg TAB 4 MG TAB PO PRN (08:15)
[2021-09-13] MEDS: Sulfamethox/Trimethoprim DS TAB 800/160 mg PO SCH (08:16)
[2021-09-13] MEDS: Nystatin TOP POWDER 15 GM BTL TOPICAL SCH ×2 (09:24→21:36)
[2021-09-13] MEDS ORDERED: Lactulose 30 ml UDC PO ONE ×2 (10:50→14:57)
[2021-09-13] MEDS: Ondansetron 4 mg VIAL 2 MG/ML 2 ml VIAL IV PRN ×2 (14:16→21:50)
[2021-09-14] MEDS ORDERED: Morphine 2 MG/ML SYRINGE IV ONE (03:30)
[2021-09-14 06:31] LABS: ABS Eosinophils 0.2 10^3/ul (0-0.6); ABS Lymphocytes 0.9 10^3/ul (1.0-4.8); ABS Monocytes 0.9 10^3/ul (0-0.8); ABS Neutrophils 4.9 10^3/ul (1.5-7.7); Albumin 2.8 g/dL (3.2-5.2); Calcium 7.8 mg/dL (8.6-10.3); Eosinophil % 3.4 %; Globulin 2.9 g/dL (2-4); Hematocrit 22 % (42-52); Hemoglobin 7.8 g/dL (14.0-18.0); Lymphocyte % 12.8 %; Mean Corpuscular HGB Conc 36 g/dL (31-36); Mean Corpuscular Hemoglobin 34 pg (27-31); Mean Corpuscular Volume 92 fL (80-94); Mean Platelet Volume 6.5 fL (7.4-10.4); Nucleated Red Blood Cells % 0.1; Platelet Count 42 10^3/uL (150-450); Potassium 3.7 mmol/L (3.5-5.0); Red Blood Count 2.33 10^6 /uL (4.18-5.48); Red Cell Distribution Width 21 % (10-15); Total Bilirubin 9.1 mg/dL (0.2-1.0); Total Protein 5.7 g/dL (6.4-8.9)
[2021-09-14] MEDS: Albuterol HFA INHALER 8 gm MDI INH PRN (07:21)
[2021-09-14] MEDS: FLUTICAS/UMECLI/VILANT 200-62.5-25 MDI (NF) INH SCH (07:22)
[2021-09-14] MEDS: Furosemide 40 mg/4 ml IV VIAL IV SLOW PU SCH (09:17)
[2021-09-14] MEDS: Sulfamethox/Trimethoprim DS TAB 800/160 mg PO SCH (09:18)
[2021-09-14] MEDS: Nystatin TOP POWDER 15 GM BTL TOPICAL SCH ×2 (09:18→22:04)
[2021-09-14] MEDS ORDERED: Bumetanide IV 0.25 MG/ML 4 ml VIAL (1 mg) SLOW PUSH ONE ×2 (09:59→17:37)
[2021-09-14] MEDS ORDERED: Lactulose 30 ml UDC PO ONE (17:42)
[2021-09-15] MEDS: Ondansetron 4 mg VIAL 2 MG/ML 2 ml VIAL IV PRN ×2 (05:45→13:29)
[2021-09-15 05:47] LABS: Albumin 2.5 g/dL (3.2-5.2); Albumin/Globulin Ratio 0.8 (1-3); Calcium 7.3 mg/dL (8.6-10.3); Globulin 3.1 g/dL (2-4); Potassium 3.5 mmol/L (3.5-5.0); Total Bilirubin 7.9 mg/dL (0.2-1.0); Total Protein 5.6 g/dL (6.4-8.9); eGFR CKD-EPI 99.3 (>60)
[2021-09-15] MEDS ORDERED: Morphine 2 MG/ML SYRINGE IV ONE (06:00)
[2021-09-15] MEDS ORDERED: Potassium Chlor 20 meq TAB.ER PO ONE (07:40)
[2021-09-15] MEDS: Albuterol HFA INHALER 8 gm MDI INH PRN (07:45)
[2021-09-15] MEDS: FLUTICAS/UMECLI/VILANT 200-62.5-25 MDI (NF) INH SCH (07:45)
[2021-09-15] MEDS: Nystatin TOP POWDER 15 GM BTL TOPICAL SCH ×2 (09:55→21:31)
[2021-09-15] MEDS: Sulfamethox/Trimethoprim DS TAB 800/160 mg PO SCH (09:55)
[2021-09-15] MEDS: Bumetanide IV 0.25 MG/ML 4 ml VIAL (1 mg) SLOW PUSH SCH ×2 (10:22→18:27)
[2021-09-15] MEDS ORDERED: Albumin Human 25% 12.5 GM/50 ML BTL IV ONE (10:51)
[2021-09-15] MEDS: Lactulose 30 ml UDC PO SCH ×2 (13:23→21:31)
[2021-09-16] MEDS: Bumetanide IV 0.25 MG/ML 4 ml VIAL (1 mg) SLOW PUSH SCH ×4 (03:06→19:30)
[2021-09-16 06:17] LABS: Hematocrit 22 % (42-52); Hemoglobin 7.5 g/dL (14.0-18.0); Mean Corpuscular HGB Conc 34 g/dL (31-36); Mean Corpuscular Hemoglobin 31 pg (27-31); Mean Corpuscular Volume 91 fL (80-94); Mean Platelet Volume 6.4 fL (7.4-10.4); Platelet Count 43 10^3/uL (150-450); Red Blood Count 2.39 10^6 /uL (4.18-5.48); Red Cell Distribution Width 22 % (10-15); White Blood Count 8.8 10^3/uL (3.5-10.8)
[2021-09-16 06:53] LABS: Calcium 7.8 mg/dL (8.6-10.3); Potassium 3.9 mmol/L (3.5-5.0); eGFR CKD-EPI 91.2 (>60)
[2021-09-16] MEDS: Albuterol HFA INHALER 8 gm MDI INH PRN (06:54)
[2021-09-16] MEDS: FLUTICAS/UMECLI/VILANT 200-62.5-25 MDI (NF) INH SCH ×2 (06:54→07:01)
[2021-09-16 08:47] LABS: ABS Basophils 0.1 10^3/ul (0-0.2); ABS Eosinophils 0.3 10^3/ul (0-0.6); ABS Lymphocytes 1.1 10^3/ul (1.0-4.8); ABS Monocytes 1.2 10^3/ul (0-0.8); ABS Neutrophils 6.1 10^3/ul (1.5-7.7); Eosinophil % 3.1 %; Lymphocyte % 12.9 %; Nucleated Red Blood Cells % 0.2
[2021-09-16] MEDS: Sulfamethox/Trimethoprim DS TAB 800/160 mg PO SCH (08:59)
[2021-09-16] MEDS: Nystatin TOP POWDER 15 GM BTL TOPICAL SCH ×2 (09:01→21:59)
[2021-09-16] MEDS: Lactulose 30 ml UDC PO SCH ×3 (09:04→21:59)
[2021-09-16] MEDS ORDERED: Albumin Human 25% 12.5 GM/50 ML BTL IV ONE (10:30)
[2021-09-16] MEDS ORDERED: Bumetanide IV 10 MG in Premix IV 0 ML IV SCH (11:00)
[2021-09-16] MEDS ORDERED: Bumetanide IV 0.25 MG/ML 4 ml VIAL (1 mg) SLOW PUSH ONE (17:00)
[2021-09-16 19:00] LABS: Calcium 7.6 mg/dL (8.6-10.3); Potassium 3.9 mmol/L (3.5-5.0); eGFR CKD-EPI 90.2 (>60)
[2021-09-17] MEDS: Bumetanide IV 0.25 MG/ML 4 ml VIAL (1 mg) SLOW PUSH SCH ×4 (01:17→19:16)
[2021-09-17 07:10] LABS: Albumin/Globulin Ratio 0.9 (1-3); Calcium 7.7 mg/dL (8.6-10.3); Globulin 3.2 g/dL (2-4); Potassium 4.2 mmol/L (3.5-5.0); Total Bilirubin 8.4 mg/dL (0.2-1.0); Total Protein 6.2 g/dL (6.4-8.9); eGFR CKD-EPI 106.4 (>60)
[2021-09-17 07:18] LABS: Hematocrit 24 % (42-52); Hemoglobin 8.3 g/dL (14.0-18.0); Mean Corpuscular HGB Conc 35 g/dL (31-36); Mean Corpuscular Hemoglobin 33 pg (27-31); Mean Corpuscular Volume 95 fL (80-94); Mean Platelet Volume 6.6 fL (7.4-10.4); Platelet Count 44 10^3/uL (150-450); Red Blood Count 2.49 10^6 /uL (4.18-5.48); Red Cell Distribution Width 22 % (10-15); White Blood Count 9.2 10^3/uL (3.5-10.8)
[2021-09-17] MEDS: Albuterol HFA INHALER 8 gm MDI INH PRN (07:28)
[2021-09-17] MEDS: FLUTICAS/UMECLI/VILANT 200-62.5-25 MDI (NF) INH SCH (07:28)
[2021-09-17] MEDS: Lactulose 30 ml UDC PO SCH ×3 (08:24→20:21)
[2021-09-17] MEDS: Nystatin TOP POWDER 15 GM BTL TOPICAL SCH ×2 (08:24→20:22)
[2021-09-17] MEDS: Sulfamethox/Trimethoprim DS TAB 800/160 mg PO SCH (09:12)
[2021-09-17 09:30] LABS: Urine Osmo 247 mOsm/kg (150-1150)
[2021-09-17] MEDS: Ondansetron 4 mg VIAL 2 MG/ML 2 ml VIAL IV PRN (11:30)
[2021-09-17] MEDS ORDERED: NS 0.9% 1000 ml BAG 250 ML IV SCH (14:00)
[2021-09-18] MEDS: Bumetanide IV 0.25 MG/ML 4 ml VIAL (1 mg) SLOW PUSH SCH ×3 (01:21→21:10)
[2021-09-18 06:49] LABS: ABS Basophils 0.1 10^3/ul (0-0.2); ABS Eosinophils 0.2 10^3/ul (0-0.6); ABS Lymphocytes 0.7 10^3/ul (1.0-4.8); ABS Monocytes 1.5 10^3/ul (0-0.8); ABS Neutrophils 6.2 10^3/ul (1.5-7.7); Hematocrit 22 % (42-52); Hemoglobin 7.8 g/dL (14.0-18.0); Lymphocyte % 7.6 %; Mean Corpuscular HGB Conc 36 g/dL (31-36); Mean Corpuscular Hemoglobin 33 pg (27-31); Mean Corpuscular Volume 93 fL (80-94); Mean Platelet Volume 6.6 fL (7.4-10.4); Platelet Count 45 10^3/uL (150-450); Red Blood Count 2.35 10^6 /uL (4.18-5.48); Red Cell Distribution Width 23 % (10-15); White Blood Count 8.6 10^3/uL (3.5-10.8)
[2021-09-18] MEDS: Albuterol HFA INHALER 8 gm MDI INH PRN (07:07)
[2021-09-18] MEDS: FLUTICAS/UMECLI/VILANT 200-62.5-25 MDI (NF) INH SCH (07:08)
[2021-09-18 07:37] LABS: Calcium 7.8 mg/dL (8.6-10.3); Magnesium 1.9 mg/dL (1.9-2.7); Potassium 4.3 mmol/L (3.5-5.0); eGFR CKD-EPI 106.4 (>60)
[2021-09-18] MEDS: Sulfamethox/Trimethoprim DS TAB 800/160 mg PO SCH (08:30)
[2021-09-18] MEDS: Lactulose 30 ml UDC PO SCH ×3 (08:32→21:10)
[2021-09-18] MEDS ORDERED: Bumetanide IV 0.25 MG/ML 4 ml VIAL (1 mg) SLOW PUSH SCH (10:00)
[2021-09-18 17:49] LABS: Calcium 7.7 mg/dL (8.6-10.3); Potassium 4.2 mmol/L (3.5-5.0); eGFR CKD-EPI 98.1 (>60)
[2021-09-18] MEDS: Nystatin TOP POWDER 15 GM BTL TOPICAL SCH ×2 (19:29→21:11)
[2021-09-19] MEDS: Ondansetron 4 mg VIAL 2 MG/ML 2 ml VIAL IV PRN ×2 (04:51→15:02)
[2021-09-19 05:22] LABS: ABS Basophils 0.1 10^3/ul (0-0.2); ABS Eosinophils 0.2 10^3/ul (0-0.6); ABS Lymphocytes 0.7 10^3/ul (1.0-4.8); ABS Monocytes 1.4 10^3/ul (0-0.8); ABS Neutrophils 6.5 10^3/ul (1.5-7.7); Eosinophil % 2.2 %; Hematocrit 22 % (42-52); Hemoglobin 8.1 g/dL (14.0-18.0); Lymphocyte % 8.1 %; Mean Corpuscular HGB Conc 37 g/dL (31-36); Mean Corpuscular Hemoglobin 34 pg (27-31); Mean Corpuscular Volume 93 fL (80-94); Mean Platelet Volume 6.6 fL (7.4-10.4); Platelet Count 39 10^3/uL (150-450); Red Blood Count 2.37 10^6 /uL (4.18-5.48); Red Cell Distribution Width 23 % (10-15)
[2021-09-19 05:50] LABS: Calcium 7.6 mg/dL (8.6-10.3); Magnesium 1.9 mg/dL (1.9-2.7); Potassium 4.3 mmol/L (3.5-5.0); eGFR CKD-EPI 100.6 (>60)
[2021-09-19] MEDS: FLUTICAS/UMECLI/VILANT 200-62.5-25 MDI (NF) INH SCH ×2 (07:43→08:24)
[2021-09-19] MEDS: Bumetanide IV 0.25 MG/ML 4 ml VIAL (1 mg) SLOW PUSH SCH ×2 (08:13→20:50)
[2021-09-19] MEDS: Sulfamethox/Trimethoprim DS TAB 800/160 mg PO SCH (08:16)
[2021-09-19] MEDS: Nystatin TOP POWDER 15 GM BTL TOPICAL SCH ×2 (08:17→20:52)
[2021-09-19] MEDS: Lactulose 30 ml UDC PO SCH ×3 (08:18→20:50)
[2021-09-19] MEDS: Albuterol HFA INHALER 8 gm MDI INH PRN (08:29)
[2021-09-19] MEDS ORDERED: Benzocaine/Menthol LOZ PO PRN (14:31)
[2021-09-19 17:51] LABS: Calcium 7.8 mg/dL (8.6-10.3); Potassium 4.6 mmol/L (3.5-5.0); eGFR CKD-EPI 98.1 (>60)
[2021-09-20] MEDS: Ondansetron 4 mg VIAL 2 MG/ML 2 ml VIAL IV PRN ×2 (02:23→20:04)
[2021-09-20 05:59] LABS: ABS Eosinophils 0.1 10^3/ul (0-0.6); ABS Lymphocytes 0.7 10^3/ul (1.0-4.8); ABS Monocytes 1.4 10^3/ul (0-0.8); ABS Neutrophils 6.4 10^3/ul (1.5-7.7); Eosinophil % 1.6 %; Hematocrit 22 % (42-52); Hemoglobin 8.3 g/dL (14.0-18.0); Lymphocyte % 7.7 %; Mean Corpuscular HGB Conc 37 g/dL (31-36); Mean Corpuscular Hemoglobin 34 pg (27-31); Mean Corpuscular Volume 93 fL (80-94); Mean Platelet Volume 6.8 fL (7.4-10.4); Nucleated Red Blood Cells % 0.1; Platelet Count 44 10^3/uL (150-450); Red Blood Count 2.42 10^6 /uL (4.18-5.48); Red Cell Distribution Width 24 % (10-15); White Blood Count 8.6 10^3/uL (3.5-10.8)
[2021-09-20 06:09] LABS: Calcium 7.6 mg/dL (8.6-10.3); Potassium 4.4 mmol/L (3.5-5.0); eGFR CKD-EPI 112.5 (>60)
[2021-09-20 06:11] LABS: Magnesium 1.9 mg/dL (1.9-2.7)
[2021-09-20] MEDS: Albuterol HFA INHALER 8 gm MDI INH PRN ×2 (07:05→20:54)
[2021-09-20] MEDS: FLUTICAS/UMECLI/VILANT 200-62.5-25 MDI (NF) INH SCH (07:05)
[2021-09-20] MEDS: Lactulose 30 ml UDC PO SCH ×3 (07:57→19:58)
[2021-09-20] MEDS: Sulfamethox/Trimethoprim DS TAB 800/160 mg PO SCH (07:58)
[2021-09-20] MEDS: Nystatin TOP POWDER 15 GM BTL TOPICAL SCH ×2 (08:03→19:59)
[2021-09-20] MEDS ORDERED: Bumetanide IV 0.25 MG/ML 4 ml VIAL (1 mg) SLOW PUSH SCH (13:00)
[2021-09-20] MEDS: Ure-Na 15 GM POWD.PACK PO SCH ×2 (14:38→19:59)
[2021-09-20 17:33] LABS: Calcium 7.8 mg/dL (8.6-10.3); Potassium 4.3 mmol/L (3.5-5.0); eGFR CKD-EPI 111.1 (>60)
[2021-09-20] MEDS ORDERED: Bumetanide IV 0.25 MG/ML 4 ml VIAL (1 mg) SLOW PUSH ONE (20:00)
[2021-09-21] MEDS: Ondansetron 4 mg VIAL 2 MG/ML 2 ml VIAL IV PRN ×2 (05:06→20:30)
[2021-09-21 06:34] LABS: Hematocrit 22 % (42-52); Hemoglobin 7.5 g/dL (14.0-18.0); Mean Corpuscular HGB Conc 35 g/dL (31-36); Mean Corpuscular Hemoglobin 32 pg (27-31); Mean Corpuscular Volume 91 fL (80-94); Mean Platelet Volume 6.8 fL (7.4-10.4); Platelet Count 46 10^3/uL (150-450); Red Blood Count 2.37 10^6 /uL (4.18-5.48); Red Cell Distribution Width 24 % (10-15); White Blood Count 9.3 10^3/uL (3.5-10.8)
[2021-09-21 07:12] LABS: Calcium 7.7 mg/dL (8.6-10.3); Magnesium 1.9 mg/dL (1.9-2.7); Potassium 4.6 mmol/L (3.5-5.0); eGFR CKD-EPI 111.6 (>60)
[2021-09-21 07:20] LABS: ABS Basophils 0.1 10^3/ul (0-0.2); ABS Eosinophils 0.1 10^3/ul (0-0.6); ABS Lymphocytes 0.9 10^3/ul (1.0-4.8); ABS Monocytes 1.6 10^3/ul (0-0.8); ABS Neutrophils 6.5 10^3/ul (1.5-7.7); Eosinophil % 1.5 %; Lymphocyte % 9.8 %; Nucleated Red Blood Cells % 0.1
[2021-09-21 07:22] LABS: Anisocytosis 2+; Schistocytes 2+
[2021-09-21] MEDS: Albuterol HFA INHALER 8 gm MDI INH PRN ×3 (07:43→21:27)
[2021-09-21] MEDS: FLUTICAS/UMECLI/VILANT 200-62.5-25 MDI (NF) INH SCH (07:43)
[2021-09-21] MEDS: Lactulose 30 ml UDC PO SCH ×3 (08:50→20:30)
[2021-09-21] MEDS: Ure-Na 15 GM POWD.PACK PO SCH ×2 (08:50→20:30)
[2021-09-21] MEDS: Sulfamethox/Trimethoprim DS TAB 800/160 mg PO SCH (08:53)
[2021-09-21] MEDS: Nystatin TOP POWDER 15 GM BTL TOPICAL SCH ×2 (08:58→20:31)
[2021-09-21] MEDS ORDERED: Bumetanide IV 0.25 MG/ML 4 ml VIAL (1 mg) SLOW PUSH SCH ×3 (09:00→12:00)
[2021-09-21 14:35] LABS: INR 2.3 (0.89-1.11)
[2021-09-21 16:50] LABS: Calcium 7.6 mg/dL (8.6-10.3); Potassium 4.5 mmol/L (3.5-5.0); eGFR CKD-EPI 108.6 (>60)
[2021-09-21] MEDS: Bumetanide IV 0.25 MG/ML 4 ml VIAL (1 mg) SLOW PUSH SCH ×2 (18:20→21:42)
[2021-09-22] MEDS: Bumetanide IV 0.25 MG/ML 4 ml VIAL (1 mg) SLOW PUSH SCH ×6 (02:12→21:59)
[2021-09-22 07:22] LABS: Albumin 2.8 g/dL (3.2-5.2); Albumin/Globulin Ratio 0.9 (1-3); Calcium 7.6 mg/dL (8.6-10.3); Direct Bilirubin 2.9 mg/dL (0.03-0.18); Globulin 3.2 g/dL (2-4); Indirect Bilirubin 7.9 mg/dL (0.3-1.0); Potassium 4.2 mmol/L (3.5-5.0); Total Bilirubin 10.8 mg/dL (0.2-1.0); eGFR CKD-EPI 107.1 (>60)
[2021-09-22] MEDS: Albuterol HFA INHALER 8 gm MDI INH PRN ×2 (07:34→22:30)
[2021-09-22] MEDS: FLUTICAS/UMECLI/VILANT 200-62.5-25 MDI (NF) INH SCH (07:35)
[2021-09-22] MEDS: Ondansetron 4 mg VIAL 2 MG/ML 2 ml VIAL IV PRN ×2 (10:11→21:13)
[2021-09-22] MEDS: Sulfamethox/Trimethoprim DS TAB 800/160 mg PO SCH (12:28)
[2021-09-22] MEDS: Lactulose 30 ml UDC PO SCH ×3 (12:29→21:59)
[2021-09-22] MEDS: Ure-Na 15 GM POWD.PACK PO SCH ×2 (12:34→21:56)
[2021-09-22] MEDS: Nystatin TOP POWDER 15 GM BTL TOPICAL SCH ×3 (12:35→22:09)
[2021-09-22 16:51] LABS: Calcium 7.7 mg/dL (8.6-10.3); eGFR CKD-EPI 107.9 (>60)
[2021-09-22 19:06] LABS: Urine Color Yellow
[2021-09-22 19:07] LABS: Urine Appearance Clear; Urine Bilirubin Negative (Negative); Urine Blood Negative (Negative); Urine Glucose Negative (Negative); Urine Ketones Negative (Negative); Urine Nitrite Negative (Negative); Urine Protein Negative (Negative); Urine Specific Gravity 1.015 (1.005-1.030); Urine Urobilinogen 0.2 (Negative) (Negative)
[2021-09-23] MEDS: Bumetanide IV 0.25 MG/ML 4 ml VIAL (1 mg) SLOW PUSH SCH ×6 (03:00→22:32)
[2021-09-23 05:38] LABS: Calcium 7.8 mg/dL (8.6-10.3); Potassium 3.9 mmol/L (3.5-5.0); eGFR CKD-EPI 100.6 (>60)
[2021-09-23 05:43] LABS: Hematocrit 23 % (42-52); Mean Corpuscular HGB Conc 35 g/dL (31-36); Mean Corpuscular Hemoglobin 32 pg (27-31); Mean Corpuscular Volume 92 fL (80-94); Red Blood Count 2.51 10^6 /uL (4.18-5.48); Red Cell Distribution Width 24 % (10-15); White Blood Count 8.6 10^3/uL (3.5-10.8)
[2021-09-23 05:44] LABS: ABS Basophils 0.1 10^3/ul (0-0.2); ABS Eosinophils 0.2 10^3/ul (0-0.6); ABS Lymphocytes 1.4 10^3/ul (1.0-4.8); ABS Monocytes 0.8 10^3/ul (0-0.8); ABS Neutrophils 6.2 10^3/ul (1.5-7.7); Eosinophil % 1.8 %; Lymphocyte % 16.6 %; Mean Platelet Volume 7.2 fL (7.4-10.4); Platelet Count 58 10^3/uL (150-450)
[2021-09-23 06:04] LABS: Magnesium 1.7 mg/dL (1.9-2.7)
[2021-09-23] MEDS: FLUTICAS/UMECLI/VILANT 200-62.5-25 MDI (NF) INH SCH (07:05)
[2021-09-23] MEDS: Albuterol HFA INHALER 8 gm MDI INH PRN ×2 (07:05→17:42)
[2021-09-23] MEDS: Ondansetron 4 mg VIAL 2 MG/ML 2 ml VIAL IV PRN ×3 (09:13→22:31)
[2021-09-23] MEDS: Sulfamethox/Trimethoprim DS TAB 800/160 mg PO SCH (10:14)
[2021-09-23] MEDS: Ure-Na 15 GM POWD.PACK PO SCH ×2 (10:15→22:33)
[2021-09-23] MEDS: Nystatin TOP POWDER 15 GM BTL TOPICAL SCH ×2 (10:15→22:35)
[2021-09-23] MEDS: Lactulose 30 ml UDC PO SCH ×5 (10:15→22:44)
[2021-09-23 19:47] LABS: Calcium 7.5 mg/dL (8.6-10.3); Potassium 3.8 mmol/L (3.5-5.0); eGFR CKD-EPI 101.9 (>60)
[2021-09-24] MEDS: Bumetanide IV 0.25 MG/ML 4 ml VIAL (1 mg) SLOW PUSH SCH ×3 (02:22→21:30)
[2021-09-24] MEDS: Albuterol HFA INHALER 8 gm MDI INH PRN ×3 (03:35→21:36)
[2021-09-24] MEDS: Bumetanide IV 0.25 MG/ML 10 ml VIAL (2.5 mg) SLOW PUSH SCH ×2 (05:50→09:25)
[2021-09-24 07:30] LABS: Calcium 7.8 mg/dL (8.6-10.3); Magnesium 1.8 mg/dL (1.9-2.7); eGFR CKD-EPI 92.3 (>60)
[2021-09-24] MEDS: FLUTICAS/UMECLI/VILANT 200-62.5-25 MDI (NF) INH SCH (07:45)
[2021-09-24] MEDS ORDERED: Magnesium Sulfate 2 gm BAG 2 GM/50 ML BAG IVPB ONE (08:33)
[2021-09-24] MEDS: Sulfamethox/Trimethoprim DS TAB 800/160 mg PO SCH (09:24)
[2021-09-24] MEDS: Lactulose 30 ml UDC PO SCH ×3 (09:24→21:20)
[2021-09-24] MEDS: Ure-Na 15 GM POWD.PACK PO SCH ×3 (09:25→21:20)
[2021-09-24] MEDS: Nystatin TOP POWDER 15 GM BTL TOPICAL SCH ×2 (09:46→21:20)
[2021-09-24] MEDS: Ondansetron 4 mg VIAL 2 MG/ML 2 ml VIAL IV PRN ×3 (09:47→21:30)
[2021-09-25] MEDS: Bumetanide IV 0.25 MG/ML 10 ml VIAL (2.5 mg) SLOW PUSH SCH ×2 (05:23→20:57)
[2021-09-25] MEDS ORDERED: Bumetanide IV 0.25 MG/ML 10 ml VIAL (2.5 mg) SLOW PUSH SCH (06:00)
[2021-09-25 07:59] LABS: Calcium 7.9 mg/dL (8.6-10.3); Potassium 4.4 mmol/L (3.5-5.0); eGFR CKD-EPI 84.2 (>60)
[2021-09-25] MEDS: FLUTICAS/UMECLI/VILANT 200-62.5-25 MDI (NF) INH SCH (08:06)
[2021-09-25] MEDS: Albuterol HFA INHALER 8 gm MDI INH PRN ×3 (08:06→22:36)
[2021-09-25 09:11] LABS: Magnesium 2.2 mg/dL (1.9-2.7)
[2021-09-25] MEDS: Lactulose 30 ml UDC PO SCH ×3 (10:35→21:15)
[2021-09-25] MEDS: Ure-Na 15 GM POWD.PACK PO SCH ×2 (10:35→14:04)
[2021-09-25] MEDS: Sulfamethox/Trimethoprim DS TAB 800/160 mg PO SCH (10:40)
[2021-09-25] MEDS: Nystatin TOP POWDER 15 GM BTL TOPICAL SCH (10:41)
[2021-09-25] MEDS: Ondansetron 4 mg VIAL 2 MG/ML 2 ml VIAL IV PRN ×2 (10:41→20:57)
[2021-09-25] MEDS ORDERED: CMCS:Saliva Substitute (NF) 1 SPRAY BTL MT PRN (13:18)
[2021-09-25 15:46] LABS: Urine Osmo 294 mOsm/kg (150-1150)
[2021-09-25] MEDS: Albumin Human 25% 25 GM/100 ML BTL IV SCH ×2 (16:26→20:57)
[2021-09-25] MEDS ORDERED: Calcium Carb (TUMS) 500 mg CHEW TAB PO ONE (17:02)
[2021-09-26 05:56] LABS: Albumin/Globulin Ratio 1.1 (1-3); Direct Bilirubin 2.6 mg/dL (0.03-0.18); Globulin 2.8 g/dL (2-4); Potassium 4.8 mmol/L (3.5-5.0); Total Bilirubin 9.6 mg/dL (0.2-1.0); Total Protein 5.8 g/dL (6.4-8.9); eGFR CKD-EPI 76.6 (>60)
[2021-09-26 05:58] LABS: ABS Eosinophils 0.3 10^3/ul (0-0.6); ABS Monocytes 1.2 10^3/ul (0-0.8); ABS Neutrophils 5.6 10^3/ul (1.5-7.7); Eosinophil % 3.1 %; Hematocrit 20 % (42-52); Lymphocyte % 12.4 %; Mean Corpuscular HGB Conc 36 g/dL (31-36); Mean Corpuscular Hemoglobin 33 pg (27-31); Mean Corpuscular Volume 91 fL (80-94); Mean Platelet Volume 6.7 fL (7.4-10.4); Nucleated Red Blood Cells % 0.1; Platelet Count 53 10^3/uL (150-450); Red Blood Count 2.14 10^6 /uL (4.18-5.48); Red Cell Distribution Width 25 % (10-15); White Blood Count 8.1 10^3/uL (3.5-10.8)
[2021-09-26] MEDS: Ondansetron 4 mg VIAL 2 MG/ML 2 ml VIAL IV PRN ×3 (08:40→21:10)
[2021-09-26] MEDS: FLUTICAS/UMECLI/VILANT 200-62.5-25 MDI (NF) INH SCH (08:42)
[2021-09-26] MEDS: Albuterol HFA INHALER 8 gm MDI INH PRN ×2 (08:42→18:32)
[2021-09-26] MEDS: Albumin Human 25% 25 GM/100 ML BTL IV SCH ×3 (09:34→22:52)
[2021-09-26] MEDS: Lactulose 30 ml UDC PO SCH ×3 (10:00→22:11)
[2021-09-26] MEDS: Bumetanide IV 0.25 MG/ML 10 ml VIAL (2.5 mg) SLOW PUSH SCH ×2 (10:01→21:21)
[2021-09-26] MEDS: Sulfamethox/Trimethoprim DS TAB 800/160 mg PO SCH (10:02)
[2021-09-26] MEDS ORDERED: CMCS:Saliva Substitute (NF) 1 SPRAY BTL MT PRN (12:00)
[2021-09-26] MEDS ORDERED: Oral Rinse (Biotene)(NF) 237 ML or 473 ML ORAL RINSE BTL MT PRN (13:44)
[2021-09-26 20:25] LABS: Urine Potassium Concentration 17.8 mmol/L; Urine Sodium Concentration < 18 mmol/L
[2021-09-27 07:19] LABS: Hematocrit 18 % (42-52); Hemoglobin 6.4 g/dL (14.0-18.0); Mean Corpuscular HGB Conc 36 g/dL (31-36); Mean Corpuscular Hemoglobin 33 pg (27-31); Mean Corpuscular Volume 92 fL (80-94); Mean Platelet Volume 7.1 fL (7.4-10.4); Platelet Count 52 10^3/uL (150-450); Red Blood Count 1.96 10^6 /uL (4.18-5.48); Red Cell Distribution Width 24 % (10-15); White Blood Count 9.4 10^3/uL (3.5-10.8)
[2021-09-27 07:33] LABS: Albumin 3.5 g/dL (3.2-5.2); Albumin/Globulin Ratio 1.3 (1-3); Calcium 8.6 mg/dL (8.6-10.3); Globulin 2.6 g/dL (2-4); Total Bilirubin 10.3 mg/dL (0.2-1.0); Total Protein 6.1 g/dL (6.4-8.9); eGFR CKD-EPI 52.8 (>60)
[2021-09-27 07:41] LABS: ABS Basophils 0.1 10^3/ul (0-0.2); ABS Eosinophils 0.5 10^3/ul (0-0.6); ABS Monocytes 1.3 10^3/ul (0-0.8); ABS Neutrophils 6.5 10^3/ul (1.5-7.7); Eosinophil % 5.3 %; Lymphocyte % 10.2 %; Nucleated Red Blood Cells % 0.1
[2021-09-27] MEDS: Albuterol HFA INHALER 8 gm MDI INH PRN (07:56)
[2021-09-27] MEDS: FLUTICAS/UMECLI/VILANT 200-62.5-25 MDI (NF) INH SCH (07:58)
[2021-09-27 08:03] LABS: Potassium 5.6 mmol/L (3.5-5.0)
[2021-09-27 08:54] LABS: Urine Appearance Cloudy; Urine Bilirubin 1+ (Small) (Negative); Urine Blood 3+ (Large) (Negative); Urine Color Yellow; Urine Glucose Negative (Negative); Urine Ketones Negative (Negative); Urine Specific Gravity 1.015 (1.005-1.030)
[2021-09-27 08:55] LABS: Urine Nitrite Positive (Negative); Urine Protein 1+ (30 mg/dL) (Negative); Urine Urobilinogen 0.2 (Negative) (Negative)
[2021-09-27 09:09] LABS: Urine Bacteria 3+ (Absent); Urine Red Blood Cell 3+(>10/hpf) (Absent); Urine White Blood Cell 3+(>20/hpf) (Absent)
[2021-09-27 09:51] LABS: High Sensitivity Troponin 1 Hr 85 pg/mL (<20)
[2021-09-27] MEDS: Ondansetron 4 mg VIAL 2 MG/ML 2 ml VIAL IV PRN (10:14)
[2021-09-27] MEDS: Bumetanide IV 0.25 MG/ML 10 ml VIAL (2.5 mg) SLOW PUSH SCH ×3 (10:19→22:33)
[2021-09-27] MEDS: Lactulose 30 ml UDC PO SCH ×3 (10:27→22:14)
[2021-09-27] MEDS: Albumin Human 25% 25 GM/100 ML BTL IV SCH ×2 (10:33→15:53)
[2021-09-27] MEDS: Morphine 4 MG/ML VIAL (1 ml) IV PRN ×2 (11:32→22:14)
[2021-09-27] MEDS: Oral Rinse (Biotene)(NF) 237 ML or 473 ML ORAL RINSE BTL MT SCH ×2 (15:26→22:56)
[2021-09-27 15:58] LABS: Hematocrit 19 % (42-52); Hemoglobin 6.7 g/dL (14.0-18.0); Mean Corpuscular HGB Conc 35 g/dL (31-36); Mean Corpuscular Hemoglobin 32 pg (27-31); Mean Corpuscular Volume 92 fL (80-94); Mean Platelet Volume 7.1 fL (7.4-10.4); Platelet Count 55 10^3/uL (150-450); Red Blood Count 2.08 10^6 /uL (4.18-5.48); Red Cell Distribution Width 24 % (10-15); White Blood Count 12.8 10^3/uL (3.5-10.8)
[2021-09-27 16:41] LABS: Calcium 8.4 mg/dL (8.6-10.3); eGFR CKD-EPI 42.2 (>60)
[2021-09-27 16:44] LABS: Potassium 5.7 mmol/L (3.5-5.0)
[2021-09-27 22:58] LABS: Hematocrit 21 % (42-52); Hemoglobin 7.2 g/dL (14.0-18.0); Mean Corpuscular HGB Conc 35 g/dL (31-36); Mean Corpuscular Hemoglobin 32 pg (27-31); Mean Corpuscular Volume 91 fL (80-94); Platelet Count 50 10^3/uL (150-450); Red Blood Count 2.28 10^6 /uL (4.18-5.48); Red Cell Distribution Width 22 % (10-15)
[2021-09-27 23:13] LABS: Albumin 3.7 g/dL (3.2-5.2); Calcium 8.3 mg/dL (8.6-10.3)
[2021-09-27 23:19] LABS: Albumin/Globulin Ratio 1.7 (1-3); Globulin 2.2 g/dL (2-4); Potassium 5.5 mmol/L (3.5-5.0); Total Bilirubin 13.1 mg/dL (0.2-1.0); Total Protein 5.9 g/dL (6.4-8.9); eGFR CKD-EPI 45.2 (>60)
[2021-09-28 01:03] LABS: Acanthocytes 2+; Anisocytosis 1+
[2021-09-28 01:04] LABS: ABS Eosinophils 0.3 10^3/ul (0-0.6); ABS Monocytes 1.6 10^3/ul (0-0.8); ABS Neutrophils 13.1 10^3/ul (1.5-7.7); Eosinophil % 1.8 %; Lymphocyte % 6.2 %; Nucleated Red Blood Cells % 0.1
[2021-09-28 05:51] LABS: ABS Basophils 0.1 10^3/ul (0-0.2); ABS Eosinophils 0.3 10^3/ul (0-0.6); ABS Lymphocytes 0.7 10^3/ul (1.0-4.8); ABS Neutrophils 17.5 10^3/ul (1.5-7.7); Eosinophil % 1.3 %; Hematocrit 20 % (42-52); Hemoglobin 7.1 g/dL (14.0-18.0); Lymphocyte % 3.6 %; Mean Corpuscular HGB Conc 36 g/dL (31-36); Mean Corpuscular Hemoglobin 33 pg (27-31); Mean Corpuscular Volume 90 fL (80-94); Mean Platelet Volume 7.4 fL (7.4-10.4); Platelet Count 42 10^3/uL (150-450); Red Blood Count 2.18 10^6 /uL (4.18-5.48); Red Cell Distribution Width 22 % (10-15); White Blood Count 19.6 10^3/uL (3.5-10.8)
[2021-09-28] MEDS: Bumetanide IV 0.25 MG/ML 10 ml VIAL (2.5 mg) SLOW PUSH SCH (06:27)
[2021-09-28 06:48] LABS: Calcium 8.5 mg/dL (8.6-10.3); Phosphorus 5.6 mg/dL (2.5-5.0); eGFR CKD-EPI 36.3 (>60)
[2021-09-28 07:01] LABS: Magnesium 2.5 mg/dL (1.9-2.7); Potassium 5.5 mmol/L (3.5-5.0)
[2021-09-28] MEDS ORDERED: Bumetanide IV 0.25 MG/ML 4 ml VIAL (1 mg) SLOW PUSH ONE (09:20)
[2021-09-28] MEDS: FLUTICAS/UMECLI/VILANT 200-62.5-25 MDI (NF) INH SCH (11:09)
[2021-09-28] MEDS: Lactulose 30 ml UDC PO SCH ×3 (11:09→21:35)
[2021-09-28] MEDS ORDERED: Piperacillin/Tazobac ADVAN 3.375 GM in NS 0.9% 100 ml BAG 100 ML IV ONE (12:21)
[2021-09-28] MEDS ORDERED: Zosyn per Pharmacy NOTE FOLLOW UP SCH (13:00)
[2021-09-28] MEDS ORDERED: Norepinephrine 16MCG/ML BAGD5W 4,000 MCG/250 ML BAG IV ONE (14:08)
[2021-09-28] MEDS ORDERED: Albumin Human 25% 25 GM/100 ML BTL IV ONE (14:08)
[2021-09-28] MEDS ORDERED: Bumetanide IV 0.25 MG/ML 4 ml VIAL (1 mg) SLOW PUSH SCH (18:00)
[2021-09-28] MEDS: ZOSYN 3.375 GM Q8H per EXTENDED INFUSION IV SCH (18:23)
[2021-09-28] MEDS: Linezolid 600 MG IVPREMIX(*) 600 MG/300 ML BAG IVPB SCH (18:23)
[2021-09-28 18:43] LABS: Blood Urea Nitrogen 78 mg/dL (6-24); CO2 Carbon Dioxide 24 mmol/L (22-32); Calcium 8.3 mg/dL (8.6-10.3); Chloride 82 mmol/L (101-111); Glucose 85 mg/dL (70-100); eGFR CKD-EPI 26.3 (>60)
[2021-09-28 18:46] LABS: Anion Gap 11 mmol/L (2-11); Sodium 117 mmol/L (135-145)
[2021-09-28] MEDS: Norepinephrine 16MCG/ML BAGD5W 4,000 MCG/250 ML BAG IV SCH ×3 (20:18→23:30)
[2021-09-29] MEDS: Hydrocortisone INJ 100 MG/2ML 2 ML VIAL IV SCH ×4 (00:04→22:20)
[2021-09-29] MEDS: Norepinephrine 16MCG/ML BAGD5W 4,000 MCG/250 ML BAG IV SCH ×5 (00:10→22:38)
[2021-09-29] MEDS ORDERED: Digoxin IV 0.5 MG/2 ML AMP (0.25 MG/ML) IV SLOW PU ONE (00:31)
[2021-09-29 01:58] LABS: Hematocrit 23 % (42-52); Hemoglobin 7.6 g/dL (14.0-18.0); Mean Corpuscular HGB Conc 34 g/dL (31-36); Mean Corpuscular Hemoglobin 31 pg (27-31); Mean Corpuscular Volume 92 fL (80-94); Mean Platelet Volume 7.6 fL (7.4-10.4); Platelet Count 64 10^3/uL (150-450); Red Blood Count 2.44 10^6 /uL (4.18-5.48); Red Cell Distribution Width 24 % (10-15); White Blood Count 29.4 10^3/uL (3.5-10.8)
[2021-09-29 02:09] LABS: Calcium 8.4 mg/dL (8.6-10.3); eGFR CKD-EPI 30.4 (>60)
[2021-09-29] MEDS: ZOSYN 3.375 GM Q8H per EXTENDED INFUSION IV SCH ×3 (02:13→18:14)
[2021-09-29] MEDS: Morphine 4 MG/ML VIAL (1 ml) IV PRN ×3 (02:14→22:16)
[2021-09-29 02:17] LABS: Magnesium 2.4 mg/dL (1.9-2.7); Potassium 5.3 mmol/L (3.5-5.0)
[2021-09-29] MEDS: Linezolid 600 MG IVPREMIX(*) 600 MG/300 ML BAG IVPB SCH ×2 (02:35→16:24)
[2021-09-29 05:33] LABS: ABS Basophils 0.1 10^3/ul (0-0.2); ABS Eosinophils 0.1 10^3/ul (0-0.6); ABS Lymphocytes 0.6 10^3/ul (1.0-4.8); ABS Monocytes 0.9 10^3/ul (0-0.8); ABS Neutrophils 24.8 10^3/ul (1.5-7.7); Eosinophil % 0.3 %; Hematocrit 22 % (42-52); Hemoglobin 7.6 g/dL (14.0-18.0); Lymphocyte % 2.3 %; Mean Corpuscular HGB Conc 34 g/dL (31-36); Mean Corpuscular Hemoglobin 32 pg (27-31); Mean Corpuscular Volume 92 fL (80-94); Mean Platelet Volume 7.4 fL (7.4-10.4); Nucleated Red Blood Cells % 0.1; Platelet Count 54 10^3/uL (150-450); Red Blood Count 2.39 10^6 /uL (4.18-5.48); Red Cell Distribution Width 25 % (10-15); White Blood Count 26.4 10^3/uL (3.5-10.8)
[2021-09-29 05:37] LABS: INR 3.06 (0.89-1.11)
[2021-09-29 06:15] LABS: Calcium 8.4 mg/dL (8.6-10.3); eGFR CKD-EPI 34.4 (>60)
[2021-09-29 06:19] LABS: Potassium 5.5 mmol/L (3.5-5.0)
[2021-09-29] MEDS: FLUTICAS/UMECLI/VILANT 200-62.5-25 MDI (NF) INH SCH (07:03)
[2021-09-29] MEDS: Lactulose 30 ml UDC PO SCH ×3 (09:06→22:16)
[2021-09-29] MEDS: SODIUM ZIRCONIUM CYCLOSILICATE 10 GM PACKET PO SCH ×3 (09:11→22:16)
[2021-09-29] MEDS ORDERED: PHENYLEPHRINE DRIP IVPREMIX 50 MG/250 ML BAG IV SCH (11:00)
[2021-09-29 11:01] LABS: Albumin 3.3 g/dL (3.2-5.2); Albumin/Globulin Ratio 1.6 (1-3); Direct Bilirubin 4.9 mg/dL (0.03-0.18); Globulin 2.1 g/dL (2-4); Total Protein 5.4 g/dL (6.4-8.9)
[2021-09-29 11:17] LABS: Indirect Bilirubin 11.7 mg/dL (0.3-1.0); Total Bilirubin 16.6 mg/dL (0.2-1.0)
[2021-09-29 19:32] LABS: Albumin 3.2 g/dL (3.2-5.2); Albumin/Globulin Ratio 1.5 (1-3); Calcium 8.4 mg/dL (8.6-10.3); Globulin 2.2 g/dL (2-4); Potassium 4.2 mmol/L (3.5-5.0); Total Protein 5.4 g/dL (6.4-8.9); eGFR CKD-EPI 45.8 (>60)
[2021-09-29 19:35] LABS: Total Bilirubin 16.3 mg/dL (0.2-1.0)
[2021-09-29] MEDS ORDERED: Morphine 2 MG/ML SYRINGE IV ONE (23:49)
[2021-09-30] MEDS: Linezolid 600 MG IVPREMIX(*) 600 MG/300 ML BAG IVPB SCH ×2 (02:17→13:10)
[2021-09-30] MEDS: ZOSYN 3.375 GM Q8H per EXTENDED INFUSION IV SCH ×2 (02:18→11:09)
[2021-09-30] MEDS: Hydrocortisone INJ 100 MG/2ML 2 ML VIAL IV SCH ×3 (06:44→21:03)
[2021-09-30] MEDS ORDERED: Albumin Human 25% 25 GM/100 ML BTL IV ONE (07:13)
[2021-09-30] MEDS: FLUTICAS/UMECLI/VILANT 200-62.5-25 MDI (NF) INH SCH (07:22)
[2021-09-30] MEDS: Lactulose 30 ml UDC PO SCH ×3 (07:58→21:03)
[2021-09-30] MEDS: Morphine 4 MG/ML VIAL (1 ml) IV PRN ×4 (08:15→23:48)
[2021-09-30] MEDS: SODIUM ZIRCONIUM CYCLOSILICATE 10 GM PACKET PO SCH ×2 (08:32→13:10)
[2021-09-30 09:03] LABS: Hematocrit 20 % (42-52); Hemoglobin 6.8 g/dL (14.0-18.0); Mean Corpuscular HGB Conc 35 g/dL (31-36); Mean Corpuscular Hemoglobin 32 pg (27-31); Mean Corpuscular Volume 92 fL (80-94); Mean Platelet Volume 7.1 fL (7.4-10.4); Platelet Count 49 10^3/uL (150-450); Red Blood Count 2.11 10^6 /uL (4.18-5.48); Red Cell Distribution Width 24 % (10-15); White Blood Count 13.1 10^3/uL (3.5-10.8)
[2021-09-30 09:04] LABS: Hematocrit 20 % (42-52); Hemoglobin 6.8 g/dL (14.0-18.0); Mean Corpuscular HGB Conc 35 g/dL (31-36); Mean Corpuscular Hemoglobin 32 pg (27-31); Mean Corpuscular Volume 93 fL (80-94); Platelet Count 49 10^3/uL (150-450); Red Blood Count 2.11 10^6 /uL (4.18-5.48); Red Cell Distribution Width 24 % (10-15); White Blood Count 12.9 10^3/uL (3.5-10.8)
[2021-09-30 09:35] LABS: Albumin 4.5 g/dL (3.2-5.2); Albumin/Globulin Ratio 2.1 (1-3); Calcium 8.6 mg/dL (8.6-10.3); Globulin 2.1 g/dL (2-4); Potassium 3.7 mmol/L (3.5-5.0); Total Protein 6.6 g/dL (6.4-8.9); eGFR CKD-EPI 54.4 (>60)
[2021-09-30] MEDS ORDERED: Potassium Chlor 20 meq TAB.ER PO ONE (10:27)
[2021-09-30 10:33] LABS: Magnesium 2.1 mg/dL (1.9-2.7); Total Bilirubin 13.6 mg/dL (0.2-1.0)
[2021-09-30 11:01] LABS: RBC Morphology Normal (Normal)
[2021-09-30 11:02] LABS: ABS Basophils 0.1 10^3/ul (0-0.2); ABS Lymphocytes 0.7 10^3/ul (1.0-4.8); ABS Monocytes 1.5 10^3/ul (0-0.8); ABS Neutrophils 10.6 10^3/ul (1.5-7.7); Eosinophil % 0.1 %; Lymphocyte % 5.4 %
[2021-09-30] MEDS ORDERED: Digoxin IV 0.5 MG/2 ML AMP (0.25 MG/ML) IV SLOW PU ONE (12:53)
[2021-09-30] MEDS: Lidocaine PATCH 5% PATCH TRANSDERM SCH ×3 (13:05→15:43)
[2021-09-30] MEDS ORDERED: PHENYLEPHRINE DRIP IVPREMIX 50 MG/250 ML BAG IV SCH ×2 (15:00→16:12)
[2021-09-30 15:14] LABS: Albumin 3.3 g/dL (3.2-5.2); Calcium 8.9 mg/dL (8.6-10.3); Potassium 3.7 mmol/L (3.5-5.0)
[2021-09-30 15:17] LABS: Total Bilirubin 13.7 mg/dL (0.2-1.0)
[2021-09-30 15:20] LABS: Albumin/Globulin Ratio 1.5 (1-3); Globulin 2.2 g/dL (2-4); Total Protein 5.5 g/dL (6.4-8.9); eGFR CKD-EPI 53.1 (>60)
[2021-09-30] MEDS: Norepinephrine 16MCG/ML BAGD5W 4,000 MCG/250 ML BAG IV SCH (15:20)
[2021-09-30] MEDS: Cefepime 2 GM in Dextrose 2 GM/50 ML BAG IV SCH (17:59)
[2021-09-30 18:43] LABS: Hematocrit 18 % (42-52); Hemoglobin 6.1 g/dL (14.0-18.0); Mean Corpuscular HGB Conc 35 g/dL (31-36); Mean Corpuscular Hemoglobin 32 pg (27-31); Mean Corpuscular Volume 93 fL (80-94); Mean Platelet Volume 7.1 fL (7.4-10.4); Platelet Count 39 10^3/uL (150-450); Red Blood Count 1.88 10^6 /uL (4.18-5.48); Red Cell Distribution Width 24 % (10-15); White Blood Count 9.7 10^3/uL (3.5-10.8)
[2021-10-01] MEDS: Linezolid 600 MG IVPREMIX(*) 600 MG/300 ML BAG IVPB SCH ×2 (02:02→14:36)
[2021-10-01] MEDS: Cefepime 2 GM in Dextrose 2 GM/50 ML BAG IV SCH ×3 (02:04→17:01)
[2021-10-01 02:38] LABS: Hematocrit 21 % (42-52); Hemoglobin 7.3 g/dL (14.0-18.0)
[2021-10-01 03:12] LABS: Calcium 8.7 mg/dL (8.6-10.3); Potassium 3.8 mmol/L (3.5-5.0); eGFR CKD-EPI 60.8 (>60)
[2021-10-01] MEDS: Hydrocortisone INJ 100 MG/2ML 2 ML VIAL IV SCH ×3 (05:28→23:28)
[2021-10-01 05:53] LABS: ABS Lymphocytes 0.7 10^3/ul (1.0-4.8); ABS Monocytes 1.4 10^3/ul (0-0.8); ABS Neutrophils 12.1 10^3/ul (1.5-7.7); Hematocrit 22 % (42-52); Hemoglobin 7.6 g/dL (14.0-18.0); Lymphocyte % 4.7 %; Mean Corpuscular HGB Conc 35 g/dL (31-36); Mean Corpuscular Hemoglobin 32 pg (27-31); Mean Corpuscular Volume 93 fL (80-94); Mean Platelet Volume 6.8 fL (7.4-10.4); Platelet Count 49 10^3/uL (150-450); Red Blood Count 2.34 10^6 /uL (4.18-5.48); Red Cell Distribution Width 23 % (10-15); White Blood Count 14.3 10^3/uL (3.5-10.8)
[2021-10-01] MEDS: Morphine 4 MG/ML VIAL (1 ml) IV PRN (06:35)
[2021-10-01 06:45] LABS: Albumin 3.4 g/dL (3.2-5.2); Albumin/Globulin Ratio 1.5 (1-3); Calcium 9.6 mg/dL (8.6-10.3); Globulin 2.3 g/dL (2-4); Total Protein 5.7 g/dL (6.4-8.9)
[2021-10-01 06:49] LABS: Magnesium 2.3 mg/dL (1.9-2.7)
[2021-10-01 06:50] LABS: Total Bilirubin 14.4 mg/dL (0.2-1.0)
[2021-10-01] MEDS: Lactulose 30 ml UDC PO SCH ×3 (07:41→23:28)
[2021-10-01] MEDS: FLUTICAS/UMECLI/VILANT 200-62.5-25 MDI (NF) INH SCH (07:46)
[2021-10-01 08:28] LABS: PCO2 Arterial 52 mmHg (35-45); PO2 Arterial 93 mmHg (80-100)
[2021-10-01] MEDS: Lidocaine PATCH 5% PATCH TRANSDERM SCH (12:54)
[2021-10-01] MEDS ORDERED: Cefepime 2 GM in NS 0.9% 50 ML 50 ML IVPB SCH (17:00)
[2021-10-02] MEDS: Cefepime 2 GM in Dextrose 2 GM/50 ML BAG IV SCH ×2 (02:49→07:31)
[2021-10-02] MEDS: Linezolid 600 MG IVPREMIX(*) 600 MG/300 ML BAG IVPB SCH ×2 (02:51→13:25)
[2021-10-02] MEDS: Hydrocortisone INJ 100 MG/2ML 2 ML VIAL IV SCH ×3 (05:44→22:49)
[2021-10-02 06:27] LABS: Hematocrit 20 % (42-52); Mean Corpuscular HGB Conc 35 g/dL (31-36); Mean Corpuscular Hemoglobin 33 pg (27-31); Mean Corpuscular Volume 92 fL (80-94); Red Blood Count 2.15 10^6 /uL (4.18-5.48); Red Cell Distribution Width 23 % (10-15); White Blood Count 7.5 10^3/uL (3.5-10.8)
[2021-10-02 06:40] LABS: Albumin/Globulin Ratio 1.4 (1-3); Calcium 9.1 mg/dL (8.6-10.3); Globulin 2.2 g/dL (2-4); Potassium 4.5 mmol/L (3.5-5.0); Total Bilirubin 11.6 mg/dL (0.2-1.0); Total Protein 5.2 g/dL (6.4-8.9); eGFR CKD-EPI 50.5 (>60)
[2021-10-02 06:47] LABS: ABS Lymphocytes 0.6 10^3/ul (1.0-4.8); ABS Monocytes 0.6 10^3/ul (0-0.8); ABS Neutrophils 6.3 10^3/ul (1.5-7.7); Lymphocyte % 7.6 %; Mean Platelet Volume 7.2 fL (7.4-10.4); Nucleated Red Blood Cells % 0.1; Platelet Count 36 10^3/uL (150-450)
[2021-10-02 06:48] LABS: Anisocytosis 2+; Burr Cells 2+; Target Cells 1+
[2021-10-02 06:49] LABS: Acanthocytes 1+
[2021-10-02] MEDS: FLUTICAS/UMECLI/VILANT 200-62.5-25 MDI (NF) INH SCH (07:16)
[2021-10-02] MEDS: Lactulose 30 ml UDC PO SCH ×4 (07:23→20:27)
[2021-10-02] MEDS: Lidocaine PATCH 5% PATCH TRANSDERM SCH (09:06)
[2021-10-02] MEDS: Cefepime 1 GM in Dextrose 1 GM/50 ML BAG IV SCH ×2 (18:25→20:40)
[2021-10-02] MEDS: Nystatin SUSPENSION 100,000 UNITS/ML UDC SWISH SWAL SCH ×2 (18:28→20:27)
[2021-10-03] MEDS: Cefepime 1 GM in Dextrose 1 GM/50 ML BAG IV SCH ×2 (00:38→01:12)
[2021-10-03] MEDS: Linezolid 600 MG IVPREMIX(*) 600 MG/300 ML BAG IVPB SCH ×2 (02:33→14:45)
[2021-10-03 04:35] LABS: ABS Lymphocytes 0.4 10^3/ul (1.0-4.8); ABS Monocytes 0.7 10^3/ul (0-0.8); ABS Neutrophils 4.3 10^3/ul (1.5-7.7); Eosinophil % 0.5 %; Hematocrit 22 % (42-52); Hemoglobin 7.6 g/dL (14.0-18.0); Lymphocyte % 7.8 %; Mean Corpuscular HGB Conc 35 g/dL (31-36); Mean Corpuscular Hemoglobin 33 pg (27-31); Mean Corpuscular Volume 93 fL (80-94); Mean Platelet Volume 7.2 fL (7.4-10.4); Nucleated Red Blood Cells % 0.1; Platelet Count 37 10^3/uL (150-450); Red Blood Count 2.33 10^6 /uL (4.18-5.48); Red Cell Distribution Width 25 % (10-15); White Blood Count 5.4 10^3/uL (3.5-10.8)
[2021-10-03 05:06] LABS: Albumin 3.1 g/dL (3.2-5.2); Albumin/Globulin Ratio 1.4 (1-3); Calcium 9.2 mg/dL (8.6-10.3); Globulin 2.2 g/dL (2-4); Potassium 4.4 mmol/L (3.5-5.0); Total Protein 5.3 g/dL (6.4-8.9); eGFR CKD-EPI 51.6 (>60)
[2021-10-03 05:07] LABS: Magnesium 2.6 mg/dL (1.9-2.7)
[2021-10-03 05:25] LABS: Total Bilirubin 13.8 mg/dL (0.2-1.0)
[2021-10-03] MEDS: Hydrocortisone INJ 100 MG/2ML 2 ML VIAL IV SCH ×3 (05:30→22:06)
[2021-10-03] MEDS: FLUTICAS/UMECLI/VILANT 200-62.5-25 MDI (NF) INH SCH (07:52)
[2021-10-03] MEDS: Lactulose 30 ml UDC PO SCH ×3 (07:53→20:50)
[2021-10-03] MEDS: Lidocaine PATCH 5% PATCH TRANSDERM SCH (07:54)
[2021-10-03] MEDS: Nystatin SUSPENSION 100,000 UNITS/ML UDC SWISH SWAL SCH ×4 (07:54→20:51)
[2021-10-03] MEDS ORDERED: CEFEPIME IVPB SCH (09:00)
[2021-10-03] MEDS ORDERED: D5W IVPB SCH (09:00)
[2021-10-03] MEDS: Cefepime 2 GM in Dextrose 2 GM/50 ML BAG IV SCH (18:09)
[2021-10-04] MEDS: Cefepime 2 GM in Dextrose 2 GM/50 ML BAG IV SCH ×2 (01:10→09:28)
[2021-10-04] MEDS: Linezolid 600 MG IVPREMIX(*) 600 MG/300 ML BAG IVPB SCH (02:14)
[2021-10-04 05:52] LABS: Hematocrit 23 % (42-52); Hemoglobin 8.1 g/dL (14.0-18.0); Mean Corpuscular HGB Conc 35 g/dL (31-36); Mean Corpuscular Hemoglobin 32 pg (27-31); Mean Corpuscular Volume 93 fL (80-94); Red Cell Distribution Width 24 % (10-15); White Blood Count 5.2 10^3/uL (3.5-10.8)
[2021-10-04 06:19] LABS: ABS Basophils 0.1 10^3/ul (0-0.2); ABS Lymphocytes 0.3 10^3/ul (1.0-4.8); ABS Monocytes 0.7 10^3/ul (0-0.8); ABS Neutrophils 4.1 10^3/ul (1.5-7.7); Lymphocyte % 5.9 %; Mean Platelet Volume 6.4 fL (7.4-10.4); Platelet Count 33 10^3/uL (150-450)
[2021-10-04 06:21] LABS: Anisocytosis 2+; Polychromasia 1+
[2021-10-04 06:22] LABS: Acanthocytes 1+; Burr Cells 2+
[2021-10-04] MEDS: Hydrocortisone INJ 100 MG/2ML 2 ML VIAL IV SCH ×3 (06:26→21:24)
[2021-10-04 06:31] LABS: Albumin 3.1 g/dL (3.2-5.2); Albumin/Globulin Ratio 1.4 (1-3); Calcium 9.5 mg/dL (8.6-10.3); Globulin 2.2 g/dL (2-4); Potassium 4.2 mmol/L (3.5-5.0); Total Protein 5.3 g/dL (6.4-8.9); eGFR CKD-EPI 62.9 (>60)
[2021-10-04 06:37] LABS: Magnesium 2.8 mg/dL (1.9-2.7)
[2021-10-04 06:44] LABS: Total Bilirubin 16.3 mg/dL (0.2-1.0)
[2021-10-04] MEDS: FLUTICAS/UMECLI/VILANT 200-62.5-25 MDI (NF) INH SCH (09:08)
[2021-10-04] MEDS: Lactulose 30 ml UDC PO SCH ×3 (10:37→20:12)
[2021-10-04] MEDS: Lidocaine PATCH 5% PATCH TRANSDERM SCH (10:39)
[2021-10-04] MEDS: Nystatin SUSPENSION 100,000 UNITS/ML UDC SWISH SWAL SCH ×3 (10:40→18:34)
[2021-10-04] MEDS ORDERED: Polyethylene Glycol 3350 17 GM PACKET PO PRN (13:52)
[2021-10-04] MEDS ORDERED: Pantoprazole VIAL 40 MG VIAL IV SCH (18:00)
[2021-10-05] MEDS: Hydrocortisone INJ 100 MG/2ML 2 ML VIAL IV SCH (06:43)
[2021-10-05] MEDS: Lactulose 30 ml UDC PO SCH ×3 (08:44→21:11)
[2021-10-05] MEDS: Lidocaine PATCH 5% PATCH TRANSDERM SCH (08:47)
[2021-10-05] MEDS: Morphine 2 MG/ML SYRINGE IV PRN ×3 (11:12→22:14)
[2021-10-05] MEDS ORDERED: Morphine 2 MG/ML SYRINGE IV ONE (17:59)
[2021-10-05 18:17] VITALS: BP 110/52
[2021-10-06] MEDS: Morphine 2 MG/ML SYRINGE IV PRN ×5 (02:09→20:37)
[2021-10-06] MEDS: Lactulose 30 ml UDC PO SCH ×3 (10:15→20:37)
[2021-10-06] MEDS: Lidocaine PATCH 5% PATCH TRANSDERM SCH (10:15)
[2021-10-07] MEDS: Morphine 2 MG/ML SYRINGE IV PRN ×2 (05:14→09:57)
[2021-10-07] MEDS: Lactulose 30 ml UDC PO SCH ×4 (09:28→21:55)
[2021-10-07] MEDS: Lidocaine PATCH 5% PATCH TRANSDERM SCH (10:11)
[2021-10-07] MEDS ORDERED: Furosemide 20 mg/2 ml IV VIAL IV ONE (13:13)
[2021-10-07] MEDS: Morphine ORAL CONCENTRATE 5 MG/0.25 ML ORAL.SYRIN SL SCH ×2 (13:48→21:53)
[2021-10-08] MEDS: Morphine ORAL CONCENTRATE 5 MG/0.25 ML ORAL.SYRIN SL SCH ×3 (06:02→22:01)
[2021-10-08] MEDS: Morphine 2 MG/ML SYRINGE IV PRN ×2 (09:22→22:08)
[2021-10-08] MEDS: Lactulose 30 ml UDC PO SCH ×3 (09:32→22:00)
[2021-10-08] MEDS: Lidocaine PATCH 5% PATCH TRANSDERM SCH (09:32)
[2021-10-09] MEDS: Morphine 2 MG/ML SYRINGE IV PRN ×6 (01:25→23:00)
[2021-10-09] MEDS: Morphine ORAL CONCENTRATE 5 MG/0.25 ML ORAL.SYRIN SL SCH ×3 (04:46→20:32)
[2021-10-09] MEDS: Lactulose 30 ml UDC PO SCH ×3 (09:59→20:32)
[2021-10-09] MEDS: Lidocaine PATCH 5% PATCH TRANSDERM SCH (10:00)
[2021-10-10] MEDS: Morphine 2 MG/ML SYRINGE IV PRN ×5 (02:45→23:07)
[2021-10-10] MEDS: Morphine ORAL CONCENTRATE 5 MG/0.25 ML ORAL.SYRIN SL SCH ×2 (04:44→14:00)
[2021-10-10] MEDS: Lactulose 30 ml UDC PO SCH ×2 (09:37→12:51)
[2021-10-10] MEDS: Lidocaine PATCH 5% PATCH TRANSDERM SCH (09:37)
[2021-10-10] MEDS ORDERED: LORazepam 2 mg VIAL 1 ml IV PUSH PRN (15:27)
[2021-10-10] MEDS ORDERED: Lorazepam PYXIS KEY PRN (15:27)
[2021-10-10] MEDS ORDERED: Scopolamine 1 mg/72hr PATCH TRANSDERM SCH (16:00)
[2021-10-10] MEDS: Morphine 2 MG/ML SYRINGE IV SCH (16:25)
[2021-10-11] MEDS: Morphine 2 MG/ML SYRINGE IV SCH ×2 (00:43→10:07)
[2021-10-11] MEDS: Morphine 2 MG/ML SYRINGE IV PRN ×2 (03:34→13:31)
[2021-10-11] MEDS: Lidocaine PATCH 5% PATCH TRANSDERM SCH (10:09)
[2021-10-11] MEDS ORDERED: Atropine 1% (ORAL/SL) 15 ML BTL SL PRN (11:44)
[2021-10-11] MEDS: Glycopyrrolate IV 0.2 MG/ML 1 ML VIAL IV SLOW PU SCH ×2 (16:09→21:20)
== END 2021-10-11 22:24 | disposition expired | DRG 280 ==
LOC: EDHOLD 11:20 → ED 11:20 → MED 17:20 → SUATTDRO 09-13 09:00 → MED 09-14 07:49 → ICU 09-27 08:53 → MED 10-05 18:01
PROVIDERS: ADMIT Internal Medicine; ATTEND Hospitalist